=== PATIENT | female | born 1935 | race Caucasian/White ===

== ENCOUNTER 2019-08-21 13:29 | Emergency (ER) | payer MEDICARE, OTHER, SELFPAY ==
[2019-08-21] VITALS (18 sets, daily range): BP systolic 145–212; BP diastolic 59–99; PULSE 63–86; RESP 17–20; TEMP 36.8; O2SAT 93–99; BMI 30.9
--- NOTE | 2019-08-21 13:34 | ED_ITS ---
Entered by Porsche Maxwell, acting as scribe for Jomar Gipson DO HPI - General Adult General: Chief complaint: General Medical Stated complaint: Blood pressure is high Time Seen by Provider: 08/21/19 13:32 Source: patient Mode of arrival: ambulatory Limitations: no limitations History of Present Illness: HPI narrative: 84 yo Female presents to ED with complaint of elevated blood pressure. Pt states that she has been having high blood pressure for the past 3 weeks. Pt states that she sees Dr. Penn in [place]. Pt states she is going to see Dr. Penn on Friday but she couldn't wait that long. Pt states that she has been taking her blood pressure frequently over the past few days because her blood pressure has been bad. Pt states that her kidneys are not good and she has been having problems with it for a long time. MD complaint: Elevated blood pressure Onset (ago): week(s) (3) Relieving factors: none Exacerbating factors: none Associated symptoms: Reports no associated symptoms; Deny chest pain, dyspnea, headache(s), nausea, rash, palpitations or vomiting Review of Systems General: Reports: 10 or more systems reviewed and unremarkable except in HPI and below Const: Denies: fever, chills or body aches Eyes: Denies: change in vision, blurry vision or blind spots ENMT: Denies: throat pain, painful swallowing, hoarseness or mouth pain Card: Denies: chest pain, palpitations, irregular heart rhythm, edema or swelling of feet/ankles Resp: Denies: shortness of breath, productive cough or non-productive cough GI: Denies: abdominal pain, nausea or vomiting : Denies: flank pain, difficulty urinating, painful urination, urinary frequency or urinary urgency Musc: Denies: neck pain, back pain, extremity pain, extremity swelling, joint pain or joint swelling Skin/Breast: Denies: rash, itching, redness, sores, new lesion or changing lesion Neuro: Denies: headache, numbness in extremities or weakness in extremities Endo: Denies: excessive urination, excessive thirst or tired all the time Cem/Lymph: Denies: easy bruising or easy bleeding PFSH ED PFSH: Statuses (acute, chronic, etc) shown below reflect problem list status as previously entered and may not be historically accurate Medical History COPD (chronic obstructive pulmonary disease) (Acute) Surgical History History of carpal tunnel surgery (Acute) History of hysterectomy (Acute) Social History Smoking and tobacco status: former smoker Physical Exam Const: COMMON NORMALS: no apparent distress, average body habitus, oriented x3, no limitations, healthy appearing, alert and well nourished HENMT: COMMON NORMALS: normocephalic, head/scalp atraumatic, hearing grossly normal bilaterally, external ears normal, EAC's normal, TM's normal bilaterally, external nose normal, nasal mucous membranes and turbinates normal, moist oral mucous membranes, oropharynx normal, dentition normal and gingiva normal HEAD & SCALP: normocephalic and atraumatic NOSE: external nose normal and nasal mucous membranes and turbinates normal EXTERNAL EAR: Yes external ears normal EXTERNAL AUDITORY CANAL: EAC's normal TYMPANIC MEMBRANE: TM's normal bilaterally Eye: COMMON NORMALS: PERRL, EOMs intact bilaterally, conjunctivae normal, no scleral icterus, no papilledema, normal visual avendano by confrontation and fundi normal bilaterally CONJUNCTIVA: Yes conjunctivae normal PUPIL: Yes PERRL DIRECT OPHTHALMOSCOPY: Yes no papilledema and Yes fundi normal bilaterally Neck/C-Spine: COMMON NORMALS: full ROM, no lymphadenopathy, supple, no meningeal signs, no JVD, thyroid normal and no carotid bruits THYROID: thyroid normal Chest: COMMONS NORMALS: inspection of chest normal and palpation of chest normal Resp: COMMON NORMALS: normal respiratory effort, no retractions, no use of accessory muscles, clear to auscultation bilaterally and percussion normal AUSCULTATION: clear to auscultation bilaterally PERCUSSION: percussion normal Cardio: COMMON NORMALS: no JVD, regular rate, regular rhythm, S1 normal heart sound, S2 normal heart sound, no gallops, no clicks, no murmurs, no rub and peripheral pulses 2+ throughout RATE: regular rate RHYTHM: regular rhythm HEART SOUNDS: S1 normal and S2 normal PERIPHERAL PULSES: pulses 2+ throughout GI: COMMON NORMALS: normal to inspection, nondistended, normoactive bowel sounds, soft to palpation, non-tender, no hepatosplenomegaly, no masses and no bruits PALPATION: Yes soft and Yes no hepatosplenomegaly : COMMON NORMALS: Yes no CVA tenderness and Yes external appearance normal BLADDER/KIDNEY EXAM: Yes no CVA tenderness Back/Pelvis: COMMON NORMALS: no CVA tenderness, thoracic and lumbar spine normal to inspection, no thoracic nor lumbar tenderness, thoraco-lumbar ROM normal and straight leg raise negative bilaterally Extremity: COMMON NORMALS: normal to inspection, full ROM, normal capillary refill, no joint enlargement, no clubbing, cyanosis or edema, no calf tenderness and no pedal edema Neuro: COMMON NORMALS: oriented x3 SENSORIUM/ORIENTATION: Yes alert MENINGEAL SIGNS: Yes no meningeal signs Skin: COMMON NORMALS: no rashes or lesions noted, no wounds, skin turgor normal, no jaundice, no petechiae and no mottling GENERAL SKIN EXAM: no rashes or lesions noted and turgor normal Course Vital Signs: Vital signs: Vital Signs Temperature 98.2 F 08/21/19 13:46 Pulse Rate 79 08/21/19 14:30 Respiratory Rate 18 08/21/19 14:30 Blood Pressure 157/99 08/21/19 15:05 Pulse Oximetry 98 08/21/19 15:05 [facility] - General Adult Lab Data: Labs: Lab Results 08/21/19 08/21/19 08/21/19 Range/Units 14:06 14:24 14:24 WBC 8.4 (4.0-10.0) 10^3/ uL RBC 3.71 L (4.1-5.3) 10^6/u L Hgb 11.9 (11.5-15.3) g/dL Hct 36.3 L (37.0-47.0) % MCV 97.8 (81-99) fL MCH 32.1 (28.0-34.0) pg MCHC 32.8 (30.0-36.0) g/dL RDW 12.5 (12.1-15.1) % Plt Count 261 (130-400) 10^3/c mm MPV 9.8 (7.4-10.4) fL Neut % (Auto) 61.0 % Lymph % (Auto) 29.0 % [place] % (Auto) 9.0 % Eos % (Auto) 0.6 % Baso % (Auto) 0.2 % Neut # (Auto) 5.1 (1.8-7.7) 10^3/u L Lymph # (Auto) 2.4 (0.8-4.8) 10^3/u L [place] # (Auto) 0.8 (0.2-0.9) 10^3/u L Eos # (Auto) 0.1 (0.0-0.8) 10^3/u L Baso # (Auto) 0.0 (0.0-0.1) 10^3/u L Nucleated RBC % (a uto) 0 % Nucleated RBCs # 0.0 /100WBC Sodium 139 (136-145) mmol/L Potassium 4.2 (3.5-5.1) mmol/L Chloride 105 (98-107) mmol/L Carbon Dioxide 23 (22-29) mmol/L Anion Gap 15.2 (5-19) BUN 19 (8-23) mg/dL Creatinine 1.2 H (0.5-0.9) mg/dL Glucose 138 H (74-106) mg/dL Calcium 9.3 (8.8-10.2) mg/Dl Total Bilirubin 0.2 (0.15-1.2) mg/dL AST 12 (0-32) U/L ALT 11 (0-33) U/L Alkaline Phosphata se 59 (35-105) IU/L Total Protein 6.9 (6.6-8.7) g/dL Albumin 4.7 (3.5-5.2) g/dL Globulin 2.2 (1.3-4.6) g/dL TSH 0.41 (0.27-4.20) uIU/ mL Urine Color Straw (Yellow) Urine Appearance Clear (CLEAR) Urine pH 5 (5-7) Ur Specific Gravit y 1.005 (1.005-1.030) Urine Protein Neg (Negative) Urine Glucose (UA) Norm (Normal) Urine Ketones Negative (Negative) Urine Occult Blood Neg (Negative) Urine Nitrate Negative (Negative) Urine Bilirubin Neg (NEGATIVE) Urine Urobilinogen Norm (Negative) mg/dL Ur Leukocyte Joann ase Negative (Negative) Imaging Data^: CXR: Radiologist's impression: [facility] [address] [place] [address] XRay Report Signed Patient: Emiliano Mcintyre #: [id number] : 7Acct#:[id number] Age/Sex: 84 / FADM Date: 08/21/19 Loc: ERRoom/Bed: Attending Dr: Ordering Provider/Ordering MD: Jomar Gipson DO Date of Service: 08/21/19 Procedure(s): XR chest 1V portable [id number] Accession Number(s): [id number] Report Number: [id number] PROCEDURE INFORMATION: Exam: XR Chest, 1 View Exam date and time: 08/21/2019 2:04 PM Age: 84 years old Clinical indication: Other: Hypertension; Prior surgery; Surgery date: 6+ months; Additional info: HTN TECHNIQUE: Imaging protocol: XR of the chest Views: 1 view. COMPARISON: CR Chest 2 views* [id number] 09/10/2018 11:01 AM FINDINGS: Lungs: No CHF. No consolidation. Suboptimal evaluation of the right lung base. Pleural space: No pleural effusion. No pneumothorax. Heart/Mediastinum: No cardiomegaly. Bones/joints: No acute findings. XR/XR chest 1V portable [id number] IMPRESSION: No acute findings. Dictated By:Antione Jimenez MD Signed By:Antione Jimenez MDSigned Date/Time:08/21/19 1503 DD/ 1501 Discharge Plan Discharge Patient Disposition: Home, Self-Care Clinical Impression: Hypertensive urgency Hypertension Qualifiers: Hypertension type: essential hypertension Qualified Code(s): I10 - Essential (primary) hypertension Condition: Stable Prescriptions: New hydralazine 10 mg tablet 10 mg PO Q6H PRN (Reason: hypertension) Qty: 10 RF: 0 Discharge Orders: Discharge Order (Routine); Ordered 08/21/19 Ordered By: Jomar Gipson Referrals: Roosevelt Penn MD [Family Provider] - Discharge Diet: Usual diet and Low Salt Discharge Activity: Resume usual activity Patient Instructions: Hypertension (ED) Coding Level of Care Code ED Finished Goods Planner for Chg Fwd Exam Problem Focused The documentation recorded by the scribe, [place],Porsche, accurately reflects the service I personally performed and the decisions made by me, Jomar Gipson, Aug 21, 2019 13:29
--- NOTE | 2019-08-21 14:02 | XRR_ITS ---
PROCEDURE INFORMATION: Exam: XR Chest, 1 View Exam date and time: 08/21/2019 2:04 PM Age: 84 years old Clinical indication: Other: Hypertension; Prior surgery; Surgery date: 6+ months; Additional info: HTN TECHNIQUE: Imaging protocol: XR of the chest Views: 1 view. COMPARISON: CR Chest 2 views* [id number] 09/10/2018 11:01 AM FINDINGS: Lungs: No CHF. No consolidation. Suboptimal evaluation of the right lung base. Pleural space: No pleural effusion. No pneumothorax. Heart/Mediastinum: No cardiomegaly. Bones/joints: No acute findings. XR/XR chest 1V portable [id number] IMPRESSION: No acute findings.
--- NOTE | 2019-08-21 14:04 | ECG_ITS ---
Measurements Intervals [place] Rate: 69 P: 64 OK: 176 QRS: -49 QRSD: 155 T: 60 QT: 398 QTc: 428 SINUS RHYTHM RIGHT BUNDLE BRANCH BLOCK [120+ ms QRS DURATION, UPRIGHT V1, 40+ ms S IN I I/aVL/V4/V5/V6] LEFT ANTERIOR FASCICULAR BLOCK [QRS AXIS <= -45, QR IN I, RS IN II] POSSIBLE LEFT VENTRICULAR HYPERTROPHY [VOLTAGE CRITERIA PLUS LAE OR QRS WIDENING] No previous ECG available for comparison Electronically Signed On 08-22-2019 9:33:36 [employer]OMOTIVE MECHANIC by Enoch Tejada M.D. [email or web address]
--- NOTE | 2019-08-21 14:05 | PC.NURSE ---
Pt ambulated to with tech to give urine sample.
[2019-08-21] MEDS: hyDRALAzine 20 mg/mL INJ 1 mL 5 MG IVP (14:17)
--- NOTE | 2019-08-21 14:17 | PC.NURSE ---
Xray at bedside
[2019-08-21 14:19] LABS: Add Urine Microscopic? NO
[2019-08-21 14:27] LABS: Bilirubin Urine Neg (NEGATIVE); Blood Urine Neg (Negative); Glucose Urine UA Norm (Normal); Ketones Urine Negative (Negative); Leukocyte Esterase Urine Negative (Negative); Nitrate Urine Negative (Negative); Protein Urine Neg (Negative); Specific Gravity, Urine 1.005 (1.005-1.030); Urine Appearance Clear (CLEAR); Urine Color Straw (Yellow); Urobilinogen Urine Norm (Negative); pH Urine 5 (5-7)
[2019-08-21 14:32] LABS: Basophils % 0.2 %; Eosinophils # 0.1 10^3/uL (0.0-0.8); Eosinophils % 0.6 %; Hematocrit 36.3 % (37.0-47.0); Hemoglobin 11.9 g/dL (11.5-15.3); Lymphocytes # 2.4 10^3/uL (0.8-4.8); Mean Corpuscular HGB Conc 32.8 g/dL (30.0-36.0); Mean Corpuscular Hemoglobin 32.1 pg (28.0-34.0); Mean Corpuscular Volume 97.8 fL (81-99); Mean Platelet Volume 9.8 fL (7.4-10.4); Monocytes # 0.8 10^3/uL (0.2-0.9); Neutrophils # 5.1 10^3/uL (1.8-7.7); Nucleated Red Blood Cells % 0 %; Platelet Count 261 10^3/cmm (130-400); Red Blood Count 3.71 10^6/uL (4.1-5.3); Red Cell Distribution Width 12.5 % (12.1-15.1); White Blood Count 8.4 10^3/uL (4.0-10.0)
[2019-08-21 14:59] LABS: Alanine Aminotransferase 11 U/L (0-33); Albumin Level 4.7 g/dL (3.5-5.2); Alkaline Phosphatase 59 IU/L (35-105); Anion Gap 15.2 (5-19); Aspartate Amino Transferase 12 U/L (0-32); Blood Urea Nitrogen 19 mg/dL (8-23); Calcium 9.3 mg/Dl (8.8-10.2); Carbon Dioxide 23 mmol/L (22-29); Chloride 105 mmol/L (98-107); Globulin 2.2 g/dL (1.3-4.6); Glucose 138 mg/dL (74-106); Potassium 4.2 mmol/L (3.5-5.1); Sodium 139 mmol/L (136-145); Thyroid Stimulating Hormone 0.41 uIU/mL (0.27-4.20); Total Bilirubin 0.2 mg/dL (0.15-1.2); Total Protein 6.9 g/dL (6.6-8.7)
== END 2019-08-21 15:23 | disposition home or self-care (01) ==
PROVIDERS: Emergency Provider Family Medicine; Family Provider Internal Medicine
DX: I16.0 Hypertensive urgency (principal); I10 Essential (primary) hypertension; J44.9 Chronic obstructive pulmonary disease, unspecified; Z87.891 Personal history of nicotine dependence
CPT/HCPCS: 36415; 71045; 80053; 81003; 84443; 85025; 93005; 96374; 99283; A9270; J0360

== ENCOUNTER 2019-10-08 11:04 | Outpatient (CLI) | payer MEDICARE, OTHER, SELFPAY ==
[2019-10-11 16:29] LABS: Immunoglobulin E 11 kU/L (<OR=114)
== END 2019-10-08 11:05 | disposition home or self-care (01) ==
LOC: LAB 11:09
PROVIDERS: Family Provider Internal Medicine; PCP Internal Medicine; Visit Provider Internal Medicine Critical Care Medicine
DX: J45.909 Unspecified asthma, uncomplicated (principal)
CPT/HCPCS: 82785

== ENCOUNTER 2020-03-23 19:56 | Emergency (ER) | payer MEDICARE, OTHER, SELFPAY ==
[2020-03-23 20:03] VITALS: BP 184/68; PULSE 69; RESP 17; TEMP 36.8; O2SAT 98; BMI 32.5
--- NOTE | 2020-03-23 20:14 | XRR_ITS ---
PROCEDURE INFORMATION: Exam: XR Right Ankle Exam date and time: 03/23/2020 8:36 PM Age: 84 years old Clinical indication: Injury or trauma; Fall; Initial encounter; Blunt trauma; Ankle; Right; Additional info: Pain/injury TECHNIQUE: Imaging protocol: XR Right ankle. Views: 3 or more views. COMPARISON: No relevant prior studies available. FINDINGS: Bones/joints: Normal. Soft tissues: Normal. XR/XR ankle RT min 3V* [id number] IMPRESSION: No acute findings.
--- NOTE | 2020-03-23 20:14 | XRR_ITS ---
PROCEDURE INFORMATION: Exam: XR Right Foot Complete Exam date and time: 03/23/2020 8:36 PM Age: 84 years old Clinical indication: Injury or trauma; Fall; Initial encounter; Blunt trauma; Foot; Right; Additional info: Pain/injury TECHNIQUE: Imaging protocol: XR Right foot. Views: 3 or more views. COMPARISON: No relevant prior studies available. FINDINGS: Bones/joints: Negative for acute bony abnormality. A small bone spurs present on the inferior calcaneus Soft tissues: Normal. XR/XR foot RT min 3V* [id number] IMPRESSION: No acute findings. Small bone spur inferior calcaneus
--- NOTE | 2020-03-23 20:16 | ED_ITS ---
HPI - Fall General: Chief Complaint: Fall Stated Complaint: fell Time Seen by Provider: 03/23/20 20:11 Source: patient Mode of arrival: ambulatory Limitations: no limitations History of Present Illness: HPI Narrative: Edwardo is a very nice 84-year-old female who comes in complaining of right ankle and foot pain. Patient fell asleep and when awakening her foot had fallen asleep. She got up and tried to walk and hurt her foot and ankle in the process. She denies any numbness now but she has pain every time she tries to walk primarily in her ankle. She denies any other injuries or pain. Patient now cannot bear weight secondary to that pain. Review of Systems General: Reports: 10 or more systems reviewed and unremarkable except in HPI and below PFSH ED PFSH: Medical History Essential (primary) hypertension GERD (gastroesophageal reflux disease) Hyperlipidemia Kidney failure SARAHI (obstructive sleep apnea) Rheumatoid arthritis Surgical History History of carpal tunnel surgery History of hysterectomy History of lung surgery Hx of cataract surgery Family History Mother Diabetes Father CAD (coronary artery disease) Family/Other CAD (coronary artery disease) Brother CAD (coronary artery disease) Sister Pacemaker Social History Smoking and tobacco status: former smoker Quit status (tobacco): has quit using tobacco Year quit tobacco: 1960 - 0.5 PPD x 2 Years Second hand smoke exposure: Yes Alcohol intake: never Lives independently: Yes Household members: none Marital status: Unknown Current occupational status: retired History of recent travel: No Current gender identity: Female Physical Exam Const: COMMON NORMALS: no acute distress, patient oriented x3, no limitations, healthy appearing and well nourished GENERAL APPEARANCE: cooperative, well kempt and well developed HENMT: COMMON NORMALS: normocephalic, atraumatic, external ears normal, EAC's normal and Normal external nose present HEAD & SCALP: normal to inspection, normocephalic and atraumatic FACE & SINUS: normal facial exam and face symmetric NOSE: Normal external nose present and Normal nares present EXTERNAL EAR: Yes external ears normal EXTERNAL AUDITORY CANAL: EAC's normal MOUTH: Normal oral and palatal mucosa present, lip normal and tongue normal Eye: COMMON NORMALS: Equal, round and reactive pupils present and conjunctivae normal GENERAL EYE: appearance normal, both eyes and all related structures ALIGNMENT: Yes alignment normal PERIORBITAL: periorbital findings normal EYELID: eyelids normal CONJUNCTIVA: Yes conjunctivae normal SCLERA: sc lerae normal PUPIL: Yes Equal, round and reactive pupils present Neck/C-Spine: COMMON NORMALS: full ROM, no lymphadenopathy, supple, no meningeal signs and no JVD GENERAL: Yes normal visual inspection and Yes trachea midline Chest: COMMONS NORMALS: normal inspection of the chest and normal palpation of entire chest wall Resp: COMMON NORMALS: normal respiratory effort, No retractions, No use of accessory muscles and clear to auscultation bilaterally EFFORT & INSPECTION: Yes able to speak in complete sentences and Yes symmetric chest movement AUSCULTATION: clear to auscultation bilaterally, no crackles, no rales, no rhonchi and no wheezes Cardio: COMMON NORMALS: no JVD, regular rate, regular rhythm, S1 normal heart sound present and S2 normal heart sound present RATE: regular rate RHYTHM: regular rhythm HEART SOUNDS: S1 normal heart sound present, S2 normal heart s ound present, no click, no gallops, no murmurs, no rubs and abnormal split S2 GI: COMMON NORMALS: Soft to palpation and No hepatosplenomegaly present PALPATION: Yes Soft to palpation, No Tenderness to palpation present (GI), No Guarding due to palpation present (GI), No Rigid due to palpation, Yes No hepatosplenomegaly present, No Hernia present, No Palpable mass present and No Pulsatile mass present : COMMON NORMALS: Yes no CVA tenderness BLADDER/KIDNEY EXAM: Yes no CVA tenderness EXTERNAL FEMALE EXAM: No Hernia present Back/Pelvis: COMMON NORMALS: no CVA tenderness, thoracic and lumbar spine normal to inspection, no thoracic nor lumbar tenderness and thoraco-lumbar ROM normal Extremity: COMMON NORMALS: capillary refill normal, no clubbing, cyanosis or edema and no calf tenderness NARRATIVE EXTREMITY EXAM: Patient with mild swelling and pain on palpation of the ankle and foot. She is neurovascularly intact. Neuro: COMMON NORMALS: patient oriented x3, CN's II-XII intact bilaterally, moves all extremities, no focal motor deficits and no sensory deficits noted MENINGEAL SIGNS: Yes no meningeal signs SPEECH: speech normal Psych: COMMON NORMALS: mental status grossly normal, Normal thought process present, cooperative, normal affect, speech normal and activity/motor behavior normal APPEARANCE: Yes well kempt SPEECH: Yes normal speech THOUGHT PROCESS: Normal thought process present Skin: COMMON NORMALS: no rashes or lesions noted, turgor normal, no jaundice, no petechiae and no mottling GENERAL SKIN EXAM: no rashes or lesions noted and turgor normal Course Vital Signs: Vital signs: Vital Signs Temperature 98.2 F 03/23/20 20:03 Pulse Rate 69 03/23/20 20:03 Respiratory Rate 17 03/23/20 20:03 Blood Pressure 184/68 03/23/20 20:03 Pulse Oximetry 98 03/23/20 20:03 MDM - Fall MDM Narrative: Medical decision making narrative: Tiffany is a very nice 84-year-old female comes in complaining of right ankle and foot pain. There is no sign of fracture on her x-rays. I will go and discharge the patient home as she has a walker at home. Will place a splint on her and have her follow-up with her doctor. Discharge Plan Discharge Patient Disposition: Home Clinical Impression: Ankle sprain Qualifiers: Encounter type: initial encounter Involved ligament of ankle: unspecified ligament Laterality: right Qualified Code(s): S93.401A - Sprain of unspecified ligament of right ankle, initial encounter Condition: Stable Prescriptions: [place] 5-325 mg tablet 1 tab PO Q6H PRN (Reason: pain) 5 Days Qty: 20 RF: 0 No Action alendronate 70 mg tablet 70 mg PO .weekly RF: 0 amlodipine 5 mg tablet 5 mg PO DAILY RF: 0 calcium carbonate-vitamin D3 [Calcium 600 with Vitamin D3] 600 mg(1,500mg) - 500 unit capsule 1 cap PO DAILY RF: 0 Folvite-D 94.375 mcg- 1 mg tablet 1 tab PO DAILY RF: 0 glucosamine-chondroitin 900 mg tablet 900 mg PO BID RF: 0 hydrocodone-acetaminophen 5-325 mg tablet 1 tab PO Q4H PRNRF: 0 levalbuterol HCl 1.25 mg/0.5 mL solution for nebulization 2.5 mg INHALATION Q6H PRNRF: 0 lisinopril 20 mg tablet 20 mg PO BID RF: 0 omeprazole 20 mg capsule,delayed release(DR/EC) 20 mg PO DAILY RF: 0 pravastatin 40 mg tablet 40 mg PO .QOD RF: 0 prednisone 5 mg tablet 5 mg PO DAILY RF: 0 sulfasalazine 500 mg tablet 1 gm PO BID RF: 0 tramadol 50 mg tablet 50 mg PO BID PRNRF: 0 albuterol sulfate 90 mcg/actuation HFA aerosol inhaler 2 puff INHALATION Q6H PRN (Reason: Asthma) 90 Days Qty: 18 RF: 3 fluticasone propionate [Flonase Allergy Relief] 50 mcg/actuation spray,suspension 1 spray INTRANASAL BID 3 Days Qty: 16 RF: 3 fluticasone propion-salmeterol [Advair Diskus] 250-50 mcg/dose blister with device 1 inh INHALATION BID Qty: 60 RF: 3 montelukast 10 mg tablet See Rx Instructions .ROUTE .COMPLEX Qty: 90 RF: 3 hydralazine 10 mg tablet 10 mg PO Q6H PRN (Reason: hypertension) Qty: 10 RF: 0 Discharge Orders: Discharge Order (Routine); Ordered 03/23/20 Ordered By: Alexandra Mcarthur Referrals: Santi Clemente MD [Physician] - 1-3 days Roosevelt Penn MD [Primary Care Provider] - 1-3 days Discharge Diet: Usual diet Discharge Activity: Limit activity as instructed Patient Instructions: Ankle Sprain (ED) Activity Restrictions/Additional Instructions: Please return to the ER immediately for any of the signs or symptoms listed on your discharge instruction sheets, worsening/changing of your symptoms, you are not getting better as quickly as expected, or for ANY other cause or concerns. Bear weight only as tolerated and use your walker or crutches as needed until seen by your doctor or Dr. Clemente Coding Level of Care Code ED Registration Representative for Chg Fwd Exam Comprehensive
[2020-03-23] MEDS: HYDROcodone-acetaminophen 5-325 mg Tablet 1 TAB PO (20:57)
[2020-03-23 21:42] VITALS: BP 165/73; PULSE 84; RESP 17; O2SAT 96
--- NOTE | 2020-03-24 10:42 | DCPLANNER ---
retail banking manager had message to schedule a follow up appointment for patient with ortho. retail banking manager called the ortho clinic, spoke with Kay, gave clinic patients information. retail banking manager was told that patients information would be printed and reviewed. Clinic will call patient with appointment information.
--- NOTE | 2020-04-04 15:24 | DCPLANNER ---
Patient had a follow up appointment scheduled for 03.28.20 with ortho - patient did attend the appointment.
== END 2020-03-23 21:45 | disposition home or self-care (01) ==
PROVIDERS: Emergency Provider Emergency Medicine; PCP Internal Medicine
DX: S93.401A Sprain of unspecified ligament of right ankle, initial encounter (principal); W01.0XXA Fall on same level from slipping, tripping and stumbling without subsequent striking against object, initial encounter; I10 Essential (primary) hypertension; E78.5 Hyperlipidemia, unspecified; Z87.891 Personal history of nicotine dependence
CPT/HCPCS: 12345; 29515; 73610; 73630; 99281; 99283

== ENCOUNTER 2020-03-28 11:46 | Outpatient (CLI) | payer MEDICARE, OTHER, SELFPAY | END 2020-03-28 11:47 | disposition home or self-care (01) | LOC: SPT 11:46 | PROVIDERS: PCP Internal Medicine; Visit Provider Podiatrist Foot & Ankle Surgery | DX: Z46.89 Encounter for fitting and adjustment of other specified devices (principal); S82.51XD Displaced fracture of medial malleolus of right tibia, subsequent encounter for closed fracture with routine healing; S93.401D Sprain of unspecified ligament of right ankle, subsequent encounter; X58.XXXD Exposure to other specified factors, subsequent encounter | CPT/HCPCS: 97760; L4361 ==

== ENCOUNTER 2022-04-05 12:32 | Outpatient (CLI) | payer MEDICARE, OTHER, SELFPAY ==
[2022-04-05 12:44] LABS: Basophils % 0.1 %; Eosinophils % 0.3 %; Hematocrit 22.9 % (37.0-47.0); Hemoglobin 7.7 g/dL (11.5-15.3); Lymphocytes # 0.8 10^3/uL (0.8-4.8); Lymphocytes % 6.7 %; Mean Corpuscular HGB Conc 33.6 g/dL (30.0-36.0); Mean Corpuscular Hemoglobin 33.3 pg (28.0-34.0); Mean Corpuscular Volume 99.1 fl (81-99); Mean Platelet Volume 10.4 fL (7.4-10.4); Monocytes # 0.6 10^3/uL (0.2-0.9); Monocytes % 5.4 %; Neutrophils # 9.72 10^3/uL (1.8-7.7); Neutrophils % 86.6 %; Nucleated Red Blood Cells % 0 %; Platelet Count 289 10^3/cmm (130-400); Red Blood Count 2.31 10^6/uL (4.1-5.3); Red Cell Distribution Width 13.2 % (12.1-15.1); White Blood Count 11.2 10^3/uL (4.0-10.0)
== END 2022-04-05 12:33 | disposition home or self-care (01) ==
PROVIDERS: PCP Internal Medicine; Visit Provider Nurse Practitioner Family
DX: D64.9 Anemia, unspecified (principal)
CPT/HCPCS: 85025

== ENCOUNTER → 2022-04-19 09:01 | Day surgery (SDC) | payer MEDICARE, OTHER, SELFPAY ==
[2022-04-19] VITALS (8 sets, daily range): BP systolic 118–132; BP diastolic 59–79; PULSE 71–78; RESP 18; TEMP 36.6–36.9; O2SAT 98–100
[2022-04-19 09:53] LABS: Hematocrit 23.4 % (37.0-47.0); Hemoglobin 7.4 g/dL (11.5-15.3)
[2022-04-19] MEDS: sodium chloride 0.9% (100 ml) 100 ML 10 ML ×2 (10:52→12:53)
--- NOTE | 2022-04-19 14:30 | PC.NURSE ---
Pt to lab for blood transfusion. Hg 7.4 drawn this AM. Two units PRBC's infused as ordered. Pt was medicated with Benadryl and Tylenol at retirement prior to coming to per BRENDA Mcguire. Pt tolerated units well. No reaction noted. Pt back to retirement via [facility].
== END ==
PROVIDERS: PCP Internal Medicine; Visit Provider Nurse Practitioner Family
DX: D64.9 Anemia, unspecified (principal)
CPT/HCPCS: 36415; 36430; 85014; 85018; 86850; 86900; 86920; P9016

== ENCOUNTER → 2022-06-03 12:42 | Outpatient (BNVA) | payer MEDICARE, OTHER, SELFPAY | PROVIDERS: PCP Internal Medicine; Visit Provider Internal Medicine Cardiovascular Disease | DX: I25.10 Atherosclerotic heart disease of native coronary artery without angina pectoris (principal); I13.0 Hypertensive heart and chronic kidney disease with heart failure and stage 1 through stage 4 chronic kidney disease, or unspecified chronic kidney disease; N18.9 Chronic kidney disease, unspecified; I50.9 Heart failure, unspecified; Z87.891 Personal history of nicotine dependence | CPT/HCPCS: 99204 ==

== ENCOUNTER 2024-04-14 09:00 | Oncology outpatient (recurring) (ONCR) | payer MEDICARE, OTHER, SELFPAY ==
[2024-04-07 08:50] VITALS: BP 156/63; PULSE 74; RESP 16; TEMP 36.3; O2SAT 94
[2024-04-07] MEDS: sodium chloride 0.9% 250 ML 200 ML IV (09:50)
[2024-04-07] MEDS: ferumoxytol (NON-ESRD) 510 MG in sodium chloride 0.9% (100 ml) 100 ML 351 MG IV (09:51)
[2024-04-07 10:33] VITALS: BP 161/66; PULSE 56; RESP 16; TEMP 36.3; O2SAT 95
[2024-04-14 09:00] VITALS: BP 137/63; PULSE 77; RESP 16; TEMP 36.6; O2SAT 97
[2024-04-14] MEDS: ferumoxytol (NON-ESRD) 510 MG in sodium chloride 0.9% (100 ml) 100 ML 351 MG IV (09:22)
[2024-04-14 09:50] VITALS: BP 138/49; PULSE 68; RESP 16; TEMP 36.6; O2SAT 97
== END 2024-05-03 23:59 | disposition home or self-care (01) ==
PROVIDERS: PCP Internal Medicine; Visit Provider Registered Nurse
DX: Z79.899 Other long term (current) drug therapy (principal); N18.9 Chronic kidney disease, unspecified; Z53.9 Procedure and treatment not carried out, unspecified reason
CPT/HCPCS: 96365; J7050; Q0138

== ENCOUNTER 2024-05-28 08:43 | Oncology outpatient (recurring) (ONCR) | payer MEDICARE, OTHER, SELFPAY ==
[2024-05-28 09:30] LABS: Basophils % 0.2 %; Eosinophils # 0.1 10^3/uL (0.0-0.8); Hematocrit 27.5 % (36-47); Lymphocytes # 1.8 10^3/uL (0.8-4.8); Lymphocytes % 15.5 %; Mean Corpuscular Hemoglobin 35.1 pg (27-33); Mean Corpuscular Volume 109.6 fl (85-98); Monocytes # 0.6 10^3/uL (0.2-0.9); Monocytes % 5.1 %; Neutrophils # 9.09 10^3/uL (1.8-7.7); Neutrophils % 77.5 %; Nucleated Red Blood Cells % 0 %; Platelet Count 198 10^3/cmm (157-399); Red Blood Count 2.51 10^6/uL (3.85-5.65); Red Cell Distribution Width 12.6 % (12.1-15.1); Reticulocyte % 1.6 % (0.5-2.0); White Blood Count 11.73 10^3/uL (3.29-11.43)
[2024-05-28 09:59] LABS: Alanine Aminotransferase 16 U/L (0-33); Albumin Level 3.4 g/dL (3.5-5.2); Alkaline Phosphatase 82 U/L (35-105); Anion Gap 15.9 (5-19); Aspartate Amino Transferase 12 U/L (0-32); Blood Urea Nitrogen 21 mg/dL (8-23); Calcium 8.2 mg/dL (8.5-10.5); Carbon Dioxide 24 mmol/L (22-29); Chloride 101 mmol/L (98-107); Creatinine Clr Calc Pharmacy 22.2788; Ferritin 970 ng/mL (15-150); Glucose 121 mg/dL (65-115); Lactate Dehydrogenase 156 U/L (135-214); Osmolality Calculated 288 mOsm/kg (285-295); Potassium 3.9 mmol/L (3.5-5.1); Sodium 137 mmol/L (136-145); Total Bilirubin 0.2 mg/dL (0.15-1.2); Total Protein 6.4 g/dL (6.6-8.7)
[2024-05-28 10:15] LABS: Vitamin B12 479 pg/mL (232-1245)
[2024-05-28 11:32] LABS: Folate Level > 20.0 ng/mL (4.8-37.3)
[2024-06-03 12:44] LABS: Soluble Transferrin Receptor 1.08 mg/L (0.76-1.76)
== END 2024-06-03 23:59 | disposition home or self-care (01) ==
PROVIDERS: PCP Internal Medicine; Visit Provider Internal Medicine Hematology & Oncology
DX: N18.9 Chronic kidney disease, unspecified (principal); D64.9 Anemia, unspecified; Z79.899 Other long term (current) drug therapy
CPT/HCPCS: 36415; 80053; 82607; 82668; 82728; 82746; 83615; 84238; 85025; 85045; 99204

== ENCOUNTER 2024-06-04 08:29 | Oncology outpatient (recurring) (ONCR) | payer MEDICARE, OTHER, SELFPAY ==
--- OUTSIDE RECORDS SUMMARY | 2024-06-04 08:31 | XMS_ITS ---
Author Name Unknown Organization [facility] Address [address] [place], [place] [id number] Care Team Providers Care World Language Teacher Name Role Phone Carolyn GILBERT, Matti Primary Care Provider Solomon Hernández MD, Serjio Unavailable [phone] Allergies No Known Allergies REASON FOR VISIT Patient states she is here today for low back pain Medications Medication SIG (Take, Route, Frequency, Duration) Notes Start Date End Date Status Vitamin D3 10 mcg 1 tab(s) orally once a day for 30 day(s) Active ticagrelor 90 mg 1 tab(s) orally 2 times a day for 30 day(s) Active rosuvastatin 40 mg 1 tab(s) orally once a day for 30 day(s) Active rOPINIRole 0.5 mg 1 tab(s) orally 3 times a day for 30 day(s) 01/20/2024 Active PreserVision AREDS 2 Antioxidant Multiple Vitamins and Minerals 1 tab(s) chewed 2 times a day Active Metoprolol Succinate ER 25 mg 1 tab(s) orally once a day for 30 day(s) Active levothyroxine 25 mcg (0.025 mg) 1 tab(s) orally once a day for 30 day(s) 09/11/2022 Active predniSONE 5 mg 1 tab(s) orally once a day for 30 day(s) 03/16/2024 Active ondansetron 4 mg 1 tab(s) orally every 8 hours Active omeprazole 20 mg 1 tab orally once a day for 14 day(s) Active furosemide 80 mg 1 tab(s) orally once a day for 30 day(s) Active diclofenac topical 1% 4 grams applied topically Q6H prn pain for 30 days Do not fill prior to 06/15/24. ICD-10: G89.29 Active Eliquis 5 mg as directed orally 2 times a day for 30 day(s) Active chlorpheniramine/hydroc odone/PSE 1 tsp orally Q12H, PRN cough Active amiodarone 200 mg 1 tab(s) orally once a day for 30 day(s) Active acetaminophen-hydrocodo ne 325 mg-7.5 mg 1 tab orally Q4H prn pain (max 4/day; hold within 4H of planned sleep) for 28 days Do not fill prior to 06/21/24. ICD-10: G89.29 05/18/2024 Active acetaminophen-hydrocodo ne 325 mg-7.5 mg 1 tab orally Q4H prn pain (max 4/day; hold within 4H of planned sleep) for 28 days Do not fill prior to 05/24/24. ICD-10: G89.29 05/18/2024 Active Social History alcohol Question Answer Notes Did you have a drink containing alcohol in the p ast year? No Points 0 Interpretation Negative Vital Signs Temperature 97.6 degrees Fahrenheit 05/18/20 24 Blood pressure systolic 127 mm Hg 05/18/20 24 Blood pressure diastolic 48 mm Hg 024 Height 65 in 05/18/2024 Weight 187.2 lbs 05/18/2024 Oximetry 96 % 05/18/2024 BMI 31.15 kg/m2 05/18/2024 Encounters Encounter Location Date Provider Diagnosis [facility] [id number] [place], [place] [id number] 05/18/2024 Serjio Brotherslouisa Vertebrogenic low ba ck pain M54.51 ; Other chronic pain G89.29 and Obstructive sleep apnea (adult) (pediatric) G47.33 Assessments Encounter Date Diagnosis (ICD Code) Assessment Notes Treat ment Notes Treatment Clinical Notes 05/18/2024 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 05/18/2024 Other chronic pain (ICD-10 - G89.29) Patient reports that taking her pain medication allows her to decorate her home for the holidays and clean out her flower beds. Plan to continue oral opioid medication management. 05/18/2024 Obstructive sleep apnea (adult) (pediatric) (ICD-10 - G47.33) Patient reports compliance with use of her CPAP device. 05/18/2024 Other The service was provided by WILDA Vamra, as part of the ongoing care plan established by Serjio Hernández MD, who was present in the office for direct supervision during the encounter. Plan Of Treatment Medication Medication Name Sig Start Date Stop Date Notes diclofenac topical 1% 4 grams applied topically Q6H prn pain for 30 days Do not fill prior to 06/15/24. ICD-10: G89.29 acetaminophen-hydrocodon e 325 mg-7.5 mg 1 tab orally Q4H prn pain (max 4/day; hold within 4H of planned sleep) for 28 days 05/18/2024 Do not fill prior to 06/21/24. ICD-10: G89.29 acetaminophen-hydrocodon e 325 mg-7.5 mg 1 tab orally Q4H prn pain (max 4/day; hold within 4H of planned sleep) for 28 days 05/18/2024 Do not fill prior to 05/24/24. ICD-10: G89.29 Treatment Notes Assessment Notes Vertebrogenic low back pain Chronic axia l lumbosacral spine pain. Other chronic pain Patient reports that taking her pain medication allows her to decorate her home for the holidays and clean out her flower beds. Plan to continue oral opioid medication management. Obstructive sleep apnea (adult) (pediatr ic) Patient reports compliance with use of her CPAP device. Other The service was prov ided by WILDA Varma, as part of the ongoing care plan established by Serjio Hernández MD, who was present in the office for direct supervision during the encounter. Next Appt Details Follow Up: 2 month Rx visit. , Reason: Provider Name:Serjio Park son, 07/20/2024 10:40:00 AM, [address] [facility] [address], [place], [place], [id number], Progress Notes * Dixie RASMUSSEN EDOB:04/1936 (88 yo F)Acc No.[id number]:05/18/2024 Patient:?Dixie Rasmussen Provider:?Serjio Hernández :1935???Age:88 Y???Sex:Female D ate:05/18/2024 Address:[address] [facility], [id number] Pcp:Matti Leon MD Subjective: * Chief Complaints: * ???Patient states she is her e today for low back pain * HPI: ???Lumbar Spine:?88 year old female presents with c/o pain?for?chronic duration?in the bilateral low back. This pain is described as intermittent aching. This pain extends into the hips and buttocks. The back pain is aggravated by bending over, arising from a seated position, and riding in a car. This pain is somewhat alleviated with rest and by sitting in a reclined position with her feet elevated.?c/o tingling/numbness?in the bottoms of the feet.?c/o weakness?in the BLE.?Denies : injury:.?previous surgery:?lumbar spine 03/2022.?Previous Therapy:?Previous therapy:?topical agent therapy with some benefit; home exercises / stretching therapy with some benefit;?injection therapy?by Dr. Tripp with history of no benefit (2022); chiropractic?therapy with history of no benefit (2021); remote injection therapy via this facility for cervical, lumbar, sacral, tendon and myofascial pains with history of good - great benefit (see prior documentation).?Medication history:?baclofen 10 mg; gabapentin 100 mg @hs; Vicodin 500 mg; naproxen 500 mg; tramadol 50 mg.?Medications:?Brilinta (ticagrelor)?and Eliquis (apixaban) are?managed by Dr. Davidson; will address / send request for anticoagulation cessation recommendations as the need arises.?diclofenac (Voltaren)?topical gel, 1%, 4 grams, applied topically, Q6H prn pain, 30 days, 500 Gram, Refills 1 (last prescribed 01/20/24). Patient reports good benefit with 1 refill remaining at the pharmacy (confirmed).?Midway (hydrocodone / acetaminophen)?325 mg-7.5 mg, 1 tab, orally, Q4H prn pain (max 4/day; hold within 4H of planned sleep), 28 days, 112, Refills 0.Notes: Prescriptions given (2) on 03/16/24. Patient reports good benefit, as evidenced by improved ability to decorate for Andres,?prepare meals?and pull weeds out of flower beds, with quantity?35 and?0 prescription(s) remaining.Last fill date: 04/26/24.?Non Compliance/Failure to Follow Treatment Agreement:?Failure to bring prescribed medications to appointments:?on 07/25/15, 05/13/13, 04/15/13.?No-Show to Appointments:?on 11/17/07.?Abnormal chromatography / mass spectrometry results:?11/29/09.? * ROS:?14 point review of systems negative. * Medical History:? * Surgical History:?Hysterecto my Colonoscopy Cholecystectomy Right lung biopsy (benign), 02/16/06Angiogram x 2 Left carpal tunnel release, performed at [facility] in [place], [place], 12/29/18Bilataral cataract extraction with lens implants, performed at [facility] in [place], [place], 07/2019Right carpal tunnel release, performed at [facility] in [place], [place] by Dr. Weinstein, 08/25/20Low back surgery, performed at [facility] in [place], [place], lacement of stent, cardiac, performed at [facility] in [place], [place], 03/2022 * Hospitalization/Major Diagno stic Procedure:?Bronchitis, 2005Diverticulitis, 06/2016Heart attack, treated at [facility] in [place], [place], 03/2022Low potassium (fall), treated at [facility] in [place], [place], 08/2022 * Family History:?Father: dece ased 89 yrs, lung cancer.?Mother: 72 yrs, bowel obstruction.? * Social History:?Tobacco use?: nonsmoker.?Marijuana: no. ???Meth: no. ???Other illicit drug use: no. ???Alcohol?Did you have a drink containing alcohol in the past year??No ?Points?0 ?Interpretation?Negative ???: . ???Children: 4. ???Education: highest grade completed = 9th. ???Occupation: no, retired. ???Exercise: 1-2 days per week. ???History of welding/metal work: no. ???Travel: [place] (2003). * Medications:?Takingacetamino phen-hydrocodone 325 mg-7.5 mg tablet 1 tab orally Q4H prn pain (max 4/day; hold within 4H of planned sleep), Notes: Do not fill prior to 04/22/24. ICD-10: G89.29amiodarone 200 mg tablet 1 tab(s) orally once a daychlorpheniramine/hydrocodone/PSE liquid 1 tsp orally Q12H, PRN coughdiclofenac topical 1% gel 4 grams applied topically Q6H prn painEliquis(apixaban) 5 mg tablet as directed orally 2 times a dayfurosemide 80 mg tablet 1 tab(s) orally once a daylevothyroxine 25 mcg (0.025 mg) tablet 1 tab(s) orally once a dayMetoprolol Succinate ER(metoprolol) 25 mg tablet, extended release 1 tab(s) orally once a dayomeprazole 20 mg enteric coated tablet 1 tab orally once a dayondansetron 4 mg tablet 1 tab(s) orally every 8 hourspredniSONE 5 mg tablet 1 tab(s) orally once a dayPreserVision AREDS 2(multivitamin with minerals) Antioxidant Multiple Vitamins and Minerals tablet, chewable 1 tab(s) chewed 2 times a dayrOPINIRole 0.5 mg tablet 1 tab(s) orally 3 times a dayrosuvastatin 40 mg tablet 1 tab(s) orally once a dayticagrelor 90 mg tablet 1 tab(s) orally 2 times a dayVitamin D3(cholecalciferol) 10 mcg tablet 1 tab(s) orally once a dayMedication List reviewed and reconciled with the patientTaking acetaminophen-hydrocodone 325 mg-7.5 mg tablet 1 tab orally Q4H prn pain (max 4/day; hold within 4H of planned sleep), Notes: Do not fill prior to 04/22/24. ICD-10: G89.29Taking amiodarone 200 mg tablet 1 tab(s) orally once a dayTaking chlorpheniramine/hydrocodone/PSE liquid 1 tsp orally Q12H, PRN coughTaking diclofenac topical 1% gel 4 grams applied topically Q6H prn painTaking Eliquis(apixaban) 5 mg tablet as directed orally 2 times a dayTaking furosemide 80 mg tablet 1 tab(s) orally once a dayTaking levothyroxine 25 mcg (0.025 mg) tablet 1 tab(s) orally once a dayTaking Metoprolol Succinate ER(metoprolol) 25 mg tablet, extended release 1 tab(s) orally once a dayTaking omeprazole 20 mg enteric coated tablet 1 tab orally once a dayTaking ondansetron 4 mg tablet 1 tab(s) orally every 8 hoursTaking predniSONE 5 mg tablet 1 tab(s) orally once a dayTaking PreserVision AREDS 2(multivitamin with minerals) Antioxidant Multiple Vitamins and Minerals tablet, chewable 1 tab(s) chewed 2 times a dayTaking rOPINIRole 0.5 mg tablet 1 tab(s) orally 3 times a dayTaking rosuvastatin 40 mg tablet 1 tab(s) orally once a dayTaking ticagrelor 90 mg tablet 1 tab(s) orally 2 times a dayTaking Vitamin D3(cholecalciferol) 10 mcg tablet 1 tab(s) orally once a dayMedication List reviewed and reconciled with the patient * Allergies:?N.K.D.A.no[Allerg ies Verified] Objective: * Vitals:?Pain Scale:5 (0-10), Pain average:6, Pain Range:5-7, Ht: 65 in, Wt:187.2 lbs, BMI:31.15 index, BP:127/48 mm Hg, HR:68, RR:16, Temp:97.6, SaO2:96. * Physical Examination:?General:?General appearence:?well groomed, well nourished.?Build:?mildly obese.?Head:?normocephalic.?Eyes:?Conjunctiva:?without injection.?ENT:?Hearing:?grossly intact.?Chest:?Shape and expansion:?normal expansion, equal bilaterally, respirations even and unlabored.?Neurological:?Psychiatric:?alert and conversant.?Musculoskeletal:?Gait:?broad-based, use of walker for ambulation assistance.?Outcome Assessment:?Findings:?Negative, care plan not required ???Dermatology:?Skin inspection:?pink, warm, dry, and intact.? Therapeutic Interventions: * Therapeutic Interventions: ???1.?PDMP ? [facility] : 05/13/2024 9:52 AM - database accessed and reviewed prior to today's visit in anticipation of possible opioid prescribing, see scanned report ? Assessment: * Assessment: 1.?Vertebrogenic low back pa in - M54.51 (Primary)?2.?Other chronic pain - G89.29?3.?Obstructive sleep apnea (adult) (pediatric) - G47.33? Plan: * Treatment: 2.?Other chronic pain? Notes: Patient reports that taking her pain medication allows her to decorate her home for the holidays and clean out her flower beds. Plan to continue oral opioid medication management.?? 3.?Obstructive sleep apnea ( adult) (pediatric)? Notes: Patient reports compliance with use of her CPAP device.?? 4.?Others? Continue acetaminophen-hydrocodone tablet, 325 mg-7.5 mg, 1 tab, orally, Q4H prn pain (max 4/day; hold within 4H of planned sleep), 28 days, 112, Refills 0, Notes: Do not fill prior to 05/24/24. ICD-10: G89.29;?Continue acetaminophen-hydrocodone tablet, 325 mg-7.5 mg, 1 tab, orally, Q4H prn pain (max 4/day; hold within 4H of planned sleep), 28 days, 112, Refills 0, Notes: Do not fill prior to 06/21/24. ICD-10: G89.29;?Continue diclofenac topical gel, 1%, 4 grams, applied topically, Q6H prn pain, 30 days, 500 Gram, Refills 0, Notes: Do not fill prior to 06/15/24. ICD-10: G89.29.?? Notes: The service was provided by WILDA Varma, as part of the ongoing care plan established by Serjio Hernández MD, who was present in the office for direct supervision during the encounter.?? * Procedure Codes:?G8427 DOC M EDS VERIFIED W/PT OR RE * Preventive Medicine:? ??Counseling:?Pain Management:?Follow-up Plan documented:?Yes ?Pain Screening:?5 ?BP Management?LIFESTYLE RECOMMENDATION:?Lifestyle education regarding hypertension - patient education sheet given on 05/18/2024 ??Screening / Special Tests:?Fall Risk?Screening:?No falls in the past year as of: 05/18/2024 * Follow Up:?2 month Rx visit. * Images: * Sign off status: Completed true * Provider:?Serjio Hernández Date:?05/18/20 Generated for Lior jaimes/Yoli/eTparish on:?06/04/2024 08:31 AM CDT History and Physical Notes * HPI (History of Present Illness) Category Sub-Category Detail Notes Lumbar Spine injury: tingling/numbness in the bottoms of th e feet pain in the bilateral low back. This pain is described as intermittent aching. This pain extends into the hips and buttocks. The back pain is aggravated by bending over, arising from a seated position, and riding in a car. This pain is somewhat alleviated with rest and by sitting in a reclined position with her feet elevated previous surgery: lumbar spine 03/2022 weakness in the BLE Medications Midway (hydrocodone / acetaminoph en) 325 mg-7.5 mg, 1 tab, orally, Q4H prn pain (max 4/day; hold within 4H of planned sleep), 28 days, 112, Refills 0. Notes: Prescriptions given (2) on 03/16/24. Patient reports good benefit, as evidenced by improved ability to decorate for Andres, prepare meals and pull weeds out of flower beds, with quantity 35 and 0 prescription(s) remaining. Last fill date: 04/26/24 diclofenac (Voltaren) topical gel, 1%, 4 grams, applied topically, Q6H prn pain, 30 days, 500 Gram, Refills 1 (last prescribed 01/20/24). Patient reports good benefit with 1 refill remaining at the pharmacy (confirmed) Brilinta (ticagrelor) and Eliquis (apixa ban) are managed by Dr. Davidson; will address / send request for anticoagulation cessation recommendations as the need arises Previous Therapy Previous therapy: topical agent therapy with some benefit; home exercises / stretching therapy with some benefit; injection therapy by Dr. Tripp with history of no benefit (2022); chiropractic therapy with history of no benefit (2021); remote injection therapy via this facility for cervical, lumbar, sacral, tendon and myofascial pains with history of good - great benefit (see prior documentation) Medication history: baclofen 10 mg; jordan pentin 100 mg @hs; Vicodin 500 mg; naproxen 500 mg; tramadol 50 mg Non Compliance/Failure to Fo llow Treatment Agreement Failure to bring prescribed medications to appointments: on 07/25/15, 05/13/13, 04/15/13 No-Show to Appointments: on 11/17/07 Abnormal chromatography / mass spectrome try results: 11/29/09 Physical Examination Category Sub-Category Detail Notes ENT Hearing: grossly intact Chest Shape and expansion: normal expa nsion, equal bilaterally, respirations even and unlabored Neurological Psychiatric: alert and conver colleen Musculoskeletal Upper extremity: Gait: broad-based, use of walker for ambulation assistance Outcome Assessment: Findings:: Negative, care pl an not required Dermatology Skin inspection: pink, warm, dry , and intact General General appearence: well groomed , well nourished Build: mildly obese Head: normocephalic Eyes Conjunctiva: without injectio n
--- OUTSIDE RECORDS SUMMARY | 2024-06-04 08:31 | XMS_ITS ---
Author Name Unknown Organization [facility] Address [address] [place], [place] [id number] Care Team Providers Care Human Development Professor Name Role Phone Carolyn GILBERT, Matti Primary Care Provider Solomon Hernández MD, Serjio Unavailable [phone] Chery Parker Unavailable [phone] Allergies No Known Allergies REASON FOR VISIT Patient states she is here today to get my meds refilled {low back pain} Medications Medication SIG (Take, Route, Frequency, Duration) Notes Start Date End Date Status furosemide 80 mg 1 tab(s) orally once a day for 30 day(s) Active levothyroxine 25 mcg (0.025 mg) 1 tab(s) orally once a day for 30 day(s) 09/11/2022 Active amiodarone 200 mg 1 tab(s) orally once a day for 30 day(s) Active chlorpheniramine/hydroc odone/PSE 1 tsp orally Q12H, PRN cough Active Eliquis 5 mg as directed orally 2 times a day for 30 day(s) Active acetaminophen-hydrocodo ne 325 mg-7.5 mg 1 tab orally Q4H prn pain (max 4/day; hold within 4H of planned sleep) for 28 days Do not fill prior to 03/25/24. ICD-10: G89.29 03/16/2024 Active acetaminophen-hydrocodo ne 325 mg-7.5 mg 1 tab orally Q4H prn pain (max 4/day; hold within 4H of planned sleep) for 28 days Do not fill prior to 04/22/24. ICD-10: G89.29 03/16/2024 Active diclofenac topical 1% 4 grams applied topically Q6H prn pain Active Vitamin D3 10 mcg 1 tab(s) orally once a day for 30 day(s) Active predniSONE 5 mg 1 tab(s) orally once a day for 30 day(s) 03/16/2024 Active PreserVision AREDS 2 Antioxidant Multiple Vitamins and Minerals 1 tab(s) chewed 2 times a day Active rOPINIRole 0.5 mg 1 tab(s) orally 3 times a day for 30 day(s) 01/20/2024 Active rosuvastatin 40 mg 1 tab(s) orally once a day for 30 day(s) Active ticagrelor 90 mg 1 tab(s) orally 2 times a day for 30 day(s) Active Metoprolol Succinate ER 25 mg 1 tab(s) orally once a day for 30 day(s) Active omeprazole 20 mg 1 tab orally once a day for 14 day(s) Active ondansetron 4 mg 1 tab(s) orally every 8 hours Active Social History alcohol Question Answer Notes Did you have a drink containing alcohol in the p ast year? No Points 0 Interpretation Negative Vital Signs Temperature 97.2 degrees Fahrenheit 03/16/20 24 Blood pressure systolic 139 mm Hg 03/16/20 24 Blood pressure diastolic 45 mm Hg 024 Height 65 in 03/16/2024 Weight 186.2 lbs 03/16/2024 Oximetry 96 % 03/16/2024 BMI 30.98 kg/m2 03/16/2024 Encounters Encounter Location Date Provider Diagnosis [facility] [id number] [place], [place] [id number] 03/16/2024 Chery Terrell Vertebrogenic low ba ck pain M54.51 ; Other chronic pain G89.29 and Obstructive sleep apnea (adult) (pediatric) G47.33 Assessments Encounter Date Diagnosis (ICD Code) Assessment Notes Treat ment Notes Treatment Clinical Notes 03/16/2024 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 03/16/2024 Other chronic pain (ICD-10 - G89.29) Patient reports that most day she needs stronger pain medication. Plan to continue oral opioid medication management with dose titration. 03/16/2024 Obstructive sleep apnea (adult) (pediatric) (ICD-10 - G47.33) Patient reports compliance with use of her CPAP device. 03/16/2024 Other Plan Of Treatment Medication Medication Name Sig Start Date Stop Date Notes acetaminophen-hydrocodon e 325 mg-7.5 mg 1 tab orally Q4H prn pain (max 4/day; hold within 4H of planned sleep) for 28 days 03/16/2024 Do not fill prior to 03/25/24. ICD-10: G89.29 acetaminophen-hydrocodon e 325 mg-7.5 mg 1 tab orally Q4H prn pain (max 4/day; hold within 4H of planned sleep) for 28 days 03/16/2024 Do not fill prior to 04/22/24. ICD-10: G89.29 diclofenac topical 1% 4 grams applied topically Q6H prn pain Treatment Notes Assessment Notes Vertebrogenic low back pain Chronic axia l lumbosacral spine pain. Other chronic pain Patient reports that most day she needs stronger pain medication. Plan to continue oral opioid medication management with dose titration. Obstructive sleep apnea (adult) (pediatr ic) Patient reports compliance with use of her CPAP device. Next Appt Details Follow Up: 2 month Rx visit. , Reason: Provider Name:Serjio Park son, 07/20/2024 10:40:00 AM, [address] [place], [place], [phone], Progress Notes * Dixie RASMUSSEN EDOB:04/1936 (88 yo F)Acc No.[id number]:03/16/2024 Patient:?Dixie Rasmussen Provider:?WILDA Varma :1935???Age:88 Y???Sex:Female D ate:03/16/2024 Address:[address] [place], [place] [id number] Pcp:Matti Leon MD Subjective: * Chief Complaints: * ???Patient states she is her e today to get my meds refilled {low back pain} * HPI: ???Lumbar Spine:?88 year old female presents with c/o pain?for?chronic duration?in the bilateral low back. This pain is described as constant throbbing. This pain extends into the hips and thighs. The back pain is aggravated by bending over, climbing stairs, and sitting > 30 minutes. This pain is somewhat alleviated with use of muscle cream, with rest, and by lying on her side.?c/o tingling/numbness?in the bottoms of the feet.?c/o weakness?in the BLE.?Denies : injury:.?previous surgery:?lumbar spine 03/2022.?Previous Imaging/Studies:?Sleep study?on 06/08/06.?X-rays?of the L-spine on 12/05/09.?MRI?of the L-spine on 03/02/20 and 12/05/09; of the C-spine 09/25/07 and 04/22/13.?Interventional:?Interlaminar cervical epidural steroid injection:?C7-T1 on 11/05/07 with great benefit; C7-T1 on 05/12/13 with good benefit.?Interlaminar lumbar epidural steroid injection:?L6-S1 on 02/18/12 with great benefit for ~ 2 months; L5-6 on 01/17/16 with good benefit to include resolution of RLE pain.?Left SI joint local anesthetic / steroid injection:?on 04/27/12 with great benefit.?Radiofrequency nerve ablation:?right L3, L4 medial branch, right L5 dorsal ramus on 04/29/16 with great benefit (L6 labelled as L5 for this set of procedures).?Tendon steroid injection:?on 03/18/12 with great benefit; on 08/11/14 with great benefit; on 11/03/14 with good benefit; on 12/21/15 with good benefit and good improvement with ADLs, such as reaching to trim trees and pulling weeds from her yard; on 05/09/16 with good benefit and good improvement with ADLs, such as standing; on 05/15/17 with good benefit (maintained as of 08/28/17).?Trigger point injections:?on 04/15/13 with good benefit; on 05/04/15 with good benefit.?Previous Therapy:?Previous therapy:?topical agent therapy with some benefit; home exercises / stretching therapy with some benefit;?injection therapy?by Dr. Tripp with history of no benefit (2022); chiropractic?therapy with history of no benefit (2021).?Medication history:?baclofen 10 mg; gabapentin 100 mg @hs; Vicodin 500 mg; naproxen 500 mg; tramadol 50 mg.?Medications:?Brilinta (ticagrelor)?and Eliquis (apixaban) managed by Dr. Davidson; will address / send request for anticoagulation cessation recommendations as the need arises.?diclofenac (Voltaren)?topical gel, 1%, 4 grams, applied topically, Q6H prn pain, 30 days, 500 Gram, Refills 1 (last prescribed 01/20/24). No refill requested at today's visit.?Ford (hydrocodone / acetaminophen)?325 mg-5 mg, 1 tab, orally, Q4H prn pain (max 4/day; hold within 4H of planned sleep), 28 days, 112, Refills 0. Notes: Prescriptions given (2) on 01/20/24. Patient reports minimal benefit, as evidenced by improved ability to pull weeds, with quantity?51 and 0 prescription(s) remaining.Last fill date: 02/26/24.?Non Compliance/Failure to Follow Treatment Agreement:?Failure to bring prescribed medications to appointments:?on 07/25/15, 05/13/13, 04/15/13.?No-Show to Appointments:?on 11/17/07.?Abnormal chromatography / mass spectrometry results:?11/29/09.? * ROS:?14 point review of systems negative. * Medical History:? * Surgical History:?Hysterecto my Colonoscopy Cholecystectomy Right lung biopsy (benign), 02/16/06Angiogram x 2 Left carpal tunnel release, performed at [facility] in [place], [place], 12/29/18Bilataral cataract extraction with lens implants, performed at [facility] in [place], [place], 07/2019Right carpal tunnel release, performed at [facility] in [place], [place] by Dr. Weinstein, 08/25/20Low back surgery, performed at [facility] in [place], [place], lacement of stent, cardiac, performed at [facility] in [place], [place], 03/2022 * Hospitalization/Major Diagno stic Procedure:?Bronchitis, 2005Diverticulitis, 06/2016Heart attack, treated at [facility] in [place], [place], 03/2022Low potassium (fall), treated at [facility] in [place], [place], 08/2022 * Family History:?Father: dece ased [...] week. ???History of welding/metal work: no. ???Travel: [place] (2003). * Medications:?Takingacetamino phen-hydrocodone 325 mg-5 mg tablet 1 tab orally Q4H prn pain (max 4/day; hold within 4H of planned sleep)amiodarone 200 mg tablet 1 tab(s) orally once [...] mcg tablet 1 tab(s) orally once a dayTaking acetaminophen-hydrocodone 325 mg-5 mg tablet 1 tab orally Q4H prn pain (max 4/day; hold within 4H of planned sleep)Taking amiodarone 200 mg tablet 1 tab(s) orally [...] mcg tablet 1 tab(s) orally once a dayDiscontinuedsulfaSALAzine 500 mg tablet 3 tabs orally three times a dayMedication List reviewed and reconciled with the patientDiscontinued sulfaSALAzine 500 mg tablet 3 tabs orally three times a dayMedication List reviewed and reconciled with the patient * Allergies:?N.K.D.A.no[Allerg ies Verified] Objective: * Vitals:?Pain Scale:7 (0-10), Pain average:6, Pain Range:5-7, Ht: 65 in, Wt:186.2 lbs, BMI:30.98 index, BP:139/45 mm Hg, HR:70, RR:16, Temp:97.2, SaO2:96. * Physical Examination:?General:?General appearence:?well groomed, well nourished.?Build:?mildly obese.?Head:?normocephalic.?Eyes:?Conjunctiva:?without injection.?ENT:?Hearing:?grossly intact.?Chest:?Shape and expansion:?normal expansion, equal bilaterally, respirations even and unlabored.?Neurological:?Psychiatric:?alert and conversant.?Musculoskeletal:?Gait:?broad-based, use of walker for ambulation assistance.?Outcome Assessment:?Findings:?Negative, care plan not required ???Dermatology:?Skin inspection:?pink, warm, dry, and intact.? Therapeutic Interventions: * Therapeutic Interventions: ???1.?PDMP ? [facility] [place] : 03/11/2024 3:27 PM - database accessed and reviewed prior to today's visit in anticipation of possible opioid prescribing ? Assessment: * Assessment: 1.?Other chronic pain - G89. 29 (Primary)?2.?Vertebrogenic low back pain - M54.51?3.?Obstructive sleep apnea (adult) (pediatric) - G47.33? Plan: * Treatment: 2.?Vertebrogenic low back pa in? Notes: Chronic axial lumbosacral spine pain.?? 3.?Obstructive sleep apnea ( adult) (pediatric)? Notes: Patient reports compliance with use of her CPAP device.?? 4.?Others? Increase acetaminophen-hydrocodone tablet, 325 mg-7.5 mg, 1 tab, orally, Q4H prn pain (max 4/day; hold within 4H of planned sleep), 28 days, 112, Refills 0, Notes: Do not fill prior to 03/25/24. ICD-10: G89.29;?Increase acetaminophen-hydrocodone tablet, 325 mg-7.5 mg, 1 tab, orally, Q4H prn pain (max 4/day; hold within 4H of planned sleep), 28 days, 112, Refills 0, Notes: Do not fill prior to 04/22/24. ICD-10: G89.29;?Continue diclofenac topical gel, 1%, 4 grams, applied topically, Q6H prn pain.?? * Procedure Codes:?G8427 DOC M EDS VERIFIED W/PT OR RE * Preventive Medicine:? ??Counseling:?Pain Management:?Follow-up Plan documented:?Yes ?Pain Screening:?7 ??ASA Status Classification:?score:?P3.? ??Screening / Special Tests:?Fall Risk?Screening:?No falls in the past year as of: 03/16/2024 * Follow Up:?2 month Rx visit. * Images: * Sign off status: Completed true * Provider:?WILDA Varma Date:? 024 Generated for Lior jaimes/Yoli/Kristina on:?06/04/2024 08:31 AM CDT History and Physical Notes * HPI (History of Present Illness) Category Sub-Category Detail Notes Lumbar Spine injury: tingling/numbness in the bottoms of th e feet pain in the bilateral low back. This pain is described as constant throbbing. This pain extends into the hips and thighs. The back pain is aggravated by bending over, climbing stairs, and sitting > 30 minutes. This pain is somewhat alleviated with use of muscle cream, with rest, and by lying on her side previous surgery: lumbar spine 03/2022 weakness in the BLE Medications Ford (hydrocodone / acetaminoph en) 325 mg-5 mg, 1 tab, orally, Q4H prn pain (max 4/day; hold within 4H of planned sleep), 28 days, 112, Refills 0. Notes: Prescriptions given (2) on 01/20/24. Patient reports minimal benefit, as evidenced by improved ability to pull weeds, with quantity 51 and 0 prescription(s) remaining. Last fill date: 02/26/24 diclofenac (Voltaren) topical gel, 1%, 4 grams, applied topically, Q6H prn pain, 30 days, 500 Gram, Refills 1 (last prescribed 01/20/24). No refill requested at today's visit Brilinta (ticagrelor) and Eliquis (apixa ban) managed by Dr. Davidson; will address / send request for anticoagulation cessation recommendations as the need arises Interventional Left SI joint local anesthetic / steroid injection: on 04/27/12 with great benefit Interlaminar lumbar epidural steroid injection: L6-S1 on 02/18/12 with great benefit for ~ 2 months; L5-6 on 01/17/16 with good benefit to include resolution of RLE pain Trigger point injections: on 04/15/13 wi th good benefit; on 05/04/15 with good benefit Radiofrequency nerve ablation: right L3, L4 medial branch, right L5 dorsal ramus on 04/29/16 with great benefit (L6 labelled as L5 for this set of procedures) Interlaminar cervical epidur al steroid injection: C7-T1 on 11/05/07 with great benefit; C7 -T1 on 05/12/13 with good benefit Tendon steroid injection: on 03/18/12 wi th great benefit; on 08/11/14 with great benefit; on 11/03/14 with good benefit; on 12/21/15 with good benefit and good improvement with ADLs, such as reaching to trim trees and pulling weeds from her yard; on 05/09/16 with good benefit and good improvement with ADLs, such as standing; on 05/15/17 with good benefit (maintained as of 08/28/17) Previous Therapy Previous therapy: topical agent therapy with some benefit; home exercises / stretching therapy with some benefit; injection therapy by Dr. Tripp with history of no benefit (2022); chiropractic therapy with history of no benefit (2021) Medication history: baclofen 10 mg; jordan pentin 100 mg @hs; Vicodin 500 mg; naproxen 500 mg; tramadol 50 mg Previous Imaging/Studies MRI of the L-spine on 03/02/20 and 12/05/09; of the C- spine 09/25/07 and 04/22/13 Sleep study on 06/08/06 X-rays of the L-spine on Non Compliance/Failure to Fo llow Treatment Agreement [...]
--- OUTSIDE RECORDS SUMMARY | 2024-06-04 08:31 | XMS_ITS ---
Author Name Unknown Organization [facility] Address [address], [place] [id number] Care Team Providers Care Associate Professor Of Surgery Name Role Phone Carolyn GILBERT, Matti Primary Care Provider Solomon Hernández MD, Serjio Unavailable [phone] Xander [employer] STUDIES TEACHERChery Grant Unavailable [phone] Allergies No Known Allergies Results Component Value Reference Range Notes Urine tox screen / MS if ind icated Reviewed date:01/20/2024 10:47:29 AM Interpretation:Consistent Performing Lab: Notes/Report: Consistent REASON FOR VISIT Patient states she is here today to refill my pain pills {low back pain} Social History alcohol Question Answer Notes Did you have a drink containing alcohol in the p ast year? No Points 0 Interpretation Negative Vital Signs Temperature 97.3 degrees Fahrenheit 01/20/20 24 Blood pressure systolic 141 mm Hg 01/20/20 24 Blood pressure diastolic 84 mm Hg 024 Height 65 in 01/20/2024 Weight 181.8 lbs 01/20/2024 Oximetry 95 % 01/20/2024 BMI 30.25 kg/m2 01/20/2024 Encounters Encounter Location Date Provider Diagnosis [facility] [address], [place] [id number] 01/20/2024 Chery Terrell Vertebrogenic low ba ck pain M54.51 ; Other chronic pain G89.29 ; Obstructive sleep apnea (adult) (pediatric) G47.33 and FPC (current) use of opiate analgesic Z79.891 Assessments Encounter Date Diagnosis (ICD Code) Assessment Notes Treat ment Notes Treatment Clinical Notes 01/20/2024 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 01/20/2024 Other chronic pain (ICD-10 - G89.29) Patient reports that taking her pain medication allows her to work in her yard. Plan to continue oral opioid medication management. 01/20/2024 Obstructive sleep apnea (adult) (pediatric) (ICD-10 - G47.33) Patient reports compliance with use of her CPAP device. 01/20/2024 FPC (current) use of opiate analgesic (ICD-10 - Z79.891) 2022 opioid (OUD) risk tool score = 1. This places the patient in the low risk category. Plan urine toxicology screen today to monitor for presence of any unprescribed or illicit controlled substance(s), as well as prescribed hydrocodone. 01/20/2024 Other Plan Of Treatment Medication Information is temporarily u navailable. Treatment Notes Assessment Notes Vertebrogenic low back pain Chronic axia l lumbosacral spine pain. Other chronic pain Patient reports that taking her pain medication allows her to work in her yard. Plan to continue oral opioid medication management. Obstructive sleep apnea (adult) (pediatr ic) Patient reports compliance with use of her CPAP device. FPC (current) use of opiate analge sic 2022 opioid (OUD) risk tool score = 1. This places the patient in the low risk category. Plan urine toxicology screen today to monitor for presence of any unprescribed or illicit controlled substance(s), as well as prescribed hydrocodone. Next Appt Details Follow Up: 2 month Rx visit. , Reason: Provider Name:Serjio Park son, 07/20/2024 10:40:00 AM, [address], [place], [id number], Progress Notes * Dixie RASMUSSEN EDOB:04/1936 (88 yo F)Acc No.[id number]:01/20/2024 Patient:?Dixie Rasmussen Provider:?WILDA Varma :1935???Age:88 Y???Sex:Female D ate:01/20/2024 Address:[address] [place], [place] [id number] Pcp:Matti Leon MD Subjective: * Chief Complaints: * ???Patient states she is her e today to refill my pain pills {low back pain} * HPI: ???Lumbar Spine:?88 year old female presents with c/o pain?for?chronic duration?in the bilateral low back. This pain is described as constant and sharp. This pain extends into the hips, buttocks, and BLE. The back pain is aggravated by bending over, lifting large pans, and standing in the kitchen. This pain is somewhat alleviated with use of muscle cream, by sitting down, and by lying down.?c/o tingling/numbness?in the bottoms of the feet.?c/o weakness?in [...] with good benefit; on 05/04/15 with good benefit.?Medications:?Brilinta (ticagrelor)?and Eliquis (apixaban) managed by Dr. Davidson; will address / send request for anticoagulation cessation recommendations as the need arises.?diclofenac (Voltaren)?topical gel, 1%, 4 grams, applied topically, Q6H prn pain, 30 day(s), 500 Gram, Refills 2 (last prescribed 03/12/23). Patient reports good benefit.?Toomsuba (hydrocodone / acetaminophen)?325 mg-5 mg, 1 tab, orally, Q4H prn pain (max 4/day; hold within 4H of planned sleep), 28 days, 112, Refills 0. Notes: Prescriptions given (2) on 11/18/23. Patient reports?good benefit, as evidenced by improved ability to bake pies, mow the yard, water and work in flower beds, with quantity 31 and 0 prescription(s) remaining.Last fill date: 12/27/23.Last dose taken: 01/20/24.?Previous Therapy:?Previous therapy:?topical agent therapy with some benefit; home exercises / stretching therapy with some benefit;?injection therapy?by Dr. Tripp with history of no benefit (2022); chiropractic?therapy with history of no benefit (2021).?Medication history:?baclofen 10 mg; gabapentin 100 mg @hs; Vicodin 500 mg; naproxen 500 mg; tramadol 50 mg.?Non Compliance/Failure to Follow Treatment Agreement:?Failure to bring prescribed medications to appointments:?on 07/25/15, 05/13/13, 04/15/13.?No-Show to Appointments:?on 11/17/07.?Abnormal chromatography / mass spectrometry results:?11/29/09.? * ROS:?14 point review of systems negative. * Medical History:? * Surgical History:?Hysterecto my Colonoscopy Cholecystectomy Right lung biopsy (benign), 02/16/06Angiogram x 2 Left carpal tunnel release, performed at [facility] in [place], [place], 12/29/18Bilataral cataract extraction with lens implants, performed at [facility] in [place], [place], 07/2019Right carpal tunnel release, performed at [facility] in [place], [place] by Dr. Weinstein, 08/25/20Low back surgery, performed at [place], [place], lacement of stent, cardiac, performed at [place], [place], 03/2022 * Hospitalization/Major Diagno stic Procedure:?Bronchitis, 2005Diverticulitis, 06/2016Heart attack, treated at [facility] in [place], [place], 03/2022Low potassium (fall), treated at [facility] in [place], [place], 08/2022 * Family History:?Father: dece ased [...] ???Travel: [place] (2003). * Medications:?Takingacetamino phen-hydrocodone 325 mg-5 mg [...] mg tablet 1 tab(s) orally every 8 hoursPreserVision AREDS 2(multivitamin with minerals) Antioxidant Multiple Vitamins and Minerals tablet, chewable 1 tab(s) chewed 2 times a dayrOPINIRole 0.5 mg tablet 1 tab(s) orally 3 times a dayrosuvastatin 40 mg tablet 1 tab(s) orally once a daysulfaSALAzine 500 mg tablet 3 tabs orally three times a dayticagrelor 90 mg tablet 1 tab(s) orally 2 times a dayVitamin D3(cholecalciferol) 10 mcg tablet 1 tab(s) orally once a dayMedication List reviewed and reconciled with the patientTaking acetaminophen-hydrocodone 325 mg-5 mg tablet 1 tab [...] tablet 1 tab(s) orally every 8 hoursTaking PreserVision AREDS 2(multivitamin with minerals) Antioxidant Multiple Vitamins and Minerals tablet, chewable 1 tab(s) chewed 2 times a dayTaking rOPINIRole 0.5 mg tablet 1 tab(s) orally 3 times a dayTaking rosuvastatin 40 mg tablet 1 tab(s) orally once a dayTaking sulfaSALAzine 500 mg tablet 3 tabs orally three times a dayTaking ticagrelor 90 mg tablet 1 tab(s) orally 2 times a dayTaking Vitamin D3(cholecalciferol) 10 mcg tablet 1 tab(s) orally once a dayMedication List reviewed and reconciled with the patient * Allergies:?N.K.D.A.no[Allerg ies Verified] Objective: * Vitals:?Pain Scale:7 (0-10), Pain average:6-7, Pain Range:5-8, Ht: 65 in, Wt:181.8 lbs, BMI:30.25 index, BP:141/84 mm Hg, HR:81, RR:16, Temp:97.3, SaO2:95. * Physical Examination:?General:?General appearence:?well groomed, well nourished.?Build:?mildly obese.?Head:?normocephalic.?Eyes:?Conjunctiva:?without injection.?ENT:?Hearing:?grossly intact.?Chest:?Shape and expansion:?normal expansion, equal bilaterally, respirations even and unlabored.?Neurological:?Psychiatric:?alert and conversant.?Musculoskeletal:?Gait:?broad-based, use of walker for ambulation assistance.?Outcome Assessment:?Findings:?Negative, care plan not required ???Dermatology:?Skin inspection:?pink, warm, dry, and intact.? Therapeutic Interventions: * Therapeutic Interventions: ???1.?Drug Screening ? Urine Sample : collected (consistent) ???2.?PDMP ? [facility] : 01/15/2024 8:36 AM - database accessed and reviewed prior to today's visit in anticipation of possible opioid prescribing; however, no prescription records since 11/27/23 ?? Assessment: * Assessment: 1.?Other chronic pain - G89. 29 (Primary)?2.?Vertebrogenic low back pain - M54.51?3.?Obstructive sleep apnea (adult) (pediatric) - G47.33?4.?FPC (current) use of opiate analgesic - Z79.891? Plan: * Treatment: 2.?Vertebrogenic low back pa in? Notes: Chronic axial lumbosacral spine pain.?? 3.?Obstructive sleep apnea ( adult) (pediatric)? Notes: Patient reports compliance with use of her CPAP device.?? 4.?FPC (current) use o f opiate analgesic?LAB: Urine tox screen / MS if indicated Notes: 2022 opioid (OUD) risk tool score = 1. This places the patient in the low risk category. Plan urine toxicology screen today to monitor for presence of any unprescribed or illicit controlled substance(s), as well as prescribed hydrocodone.?? 5.?Others? Continue acetaminophen-hydrocodone tablet, 325 mg-5 mg, 1 tab, orally, Q4H prn pain (max 4/day; hold within 4H of planned sleep), 28 days, 112, Refills 0, Notes: Do not fill prior to 01/24/24. ICD-10: G89.29;?Continue acetaminophen-hydrocodone tablet, 325 mg-5 mg, 1 tab, orally, Q4H prn pain (max 4/day; hold within 4H of planned sleep), 28 days, 112, Refills 0, Notes: Do not fill prior to 02/21/24. ICD-10: G89.29;?Continue diclofenac topical gel, 1%, 4 grams, applied topically, Q6H prn pain, 30 days, 500 Gram, Refills 1.?? * Procedure Codes:?G8427 DOC M EDS VERIFIED W/PT OR [id number] Urine Dip Cup, Modifiers: QW * Preventive Medicine:? ??Counseling:?Pain Management:?Follow-up Plan documented:?Yes ?Pain Screening:?7 ??ASA Status Classification:?score:?P3.? ??Screening / Special Tests:?Fall Risk?Screening:?No falls in the past year as of: 01/20/2024 * Follow Up:?2 month Rx visit. * [...] back. This pain is described as constant and sharp. This pain extends into the hips, buttocks, and BLE. The back pain is aggravated by bending over, lifting large pans, and standing in the kitchen. This pain is somewhat alleviated with use of muscle cream, by sitting down, and by lying down previous surgery: lumbar spine 03/2022 weakness in the BLE Medications Toomsuba (hydrocodone / acetaminoph en) 325 mg-5 mg, 1 tab, orally, Q4H prn pain (max 4/day; hold within 4H of planned sleep), 28 days, 112, Refills 0. Notes: Prescriptions given (2) on 11/18/23. Patient reports good benefit, as evidenced by improved ability to bake pies, mow the yard, water and work in flower beds, with quantity 31 and 0 prescription(s) remaining. Last fill date: 12/27/23. Last dose taken: 01/20/24 diclofenac (Voltaren) topical gel, 1%, 4 grams, applied topically, Q6H prn pain, 30 day(s), 500 Gram, Refills 2 (last prescribed 03/12/23). Patient reports good benefit Brilinta (ticagrelor) and Eliquis (apixa ban) managed [...] 07/25/15, 05/13/13, 04/15/13 No-Show to Appointments: on 04/15/08 Abnormal chromatography / mass spectrome try results: [...]
--- OUTSIDE RECORDS SUMMARY | 2024-06-04 08:32 | XMS_ITS | Patient Health Record ---
Author Name Unknown Organization [facility] Address [address] [place] [address] Care Team Providers Care Salesperson Furs Name Role Phone Robert Bautista [phone] Reason For Referral No Information Medications Medication SIG (Take, Route, Frequency, Duration) Notes Start Date End Date Status Glucosamine 750 MG 1 tablet Orally twice daily Unknown Levalbuterol HCl 1.25 MG/0.5ML as directed Inhalation Unknown Albuterol Sulfate HFA 108 (90 Base) MCG/ACT 1 puff as needed Inhalation every 4 hrs Unknown Symbicort 160-4.5 MCG/ACT 2 puffs Inhala tion Twice a day for 30 Active Calcium + D 500-1000-40 MG-UNT-MCG as directed Orally Unknown HYDROcodone-Acetaminophen 5-325 MG 1 tablet as needed Orally every [address] Hernández Active Fluticasone-Salmeterol 500-50 MCG/DOSE 1 puff Inhalation Twice a day Active Folic Acid 1 MG 1 tablet Orally Once a day Active Doxycycline Hyclate 100 MG as directed Orally every 12 hrs for 10 day(s) 05/10/2020 Active amLODIPine Besylate 5 MG 1 tablet Orally Once a day Active Chlorthalidone 25 MG 1/2 tablet Orally Once a day for 30 day(s) Active Spiriva HandiHaler 18 MCG 1 capsule by inhaling the contents of the capsule using the HandiHaler device Inhalation Once a day Unknown Incruse Ellipta 62.5 MCG/INH 1 puff Inhalation Once a day for 30 Active Alendronate Sodium 70 MG 1 tablet 30 min utes before the first food, beverage or medicine of the day with plain water Orally Active Pravastatin Sodium 40 MG 1 tablet Orally Once a day Active predniSONE 5 MG 1 tablet Orally Once a day Active Lisinopril 20 MG 1 tablet Orally twice daily for 30 day(s) Active Omeprazole 20 MG 1 capsule 30 minutes before morning meal Orally Once a day Active Mucinex 600 MG 2 tabs Orally every 12 hrs for 14 days 05/10/2020 Active Gabapentin 100 MG 1 capsule Orally Once a day at bedtime for 30 days Active predniSONE 20 MG 1 tablet Orally twice daily for 5 days 09/08/2019 Active Mucinex 600 MG 2 tablets Orally every 12 hrs for 14 days Active Cefuroxime Axetil 500 MG 1 tablet Orally every 12 hrs for 10 days Active Doxycycline Hyclate 100 MG 1 capsule Orally Twice a day for 10 day(s) 09/08/2019 Active sulfaSALAzine 500 MG 2 tablets Orally twice daily for 30 day(s) Active traMADol HCl 50 MG 1 tablet in am and 2 tablets in pm Orally daily Dr. Hernández Active Medrol 4 MG as directed Orally daily for 7 days 05/10/2020 Active Social History Tobacco Use: Social History Observation Description Date Details (start date - stop date) Former Smoker NA - NA xTobacco Use/Smoking Question Answer Notes Are you a former smoker How long has it been since you last smoked? > 10 years Alcohol Screen (Audit-C) Question Answer Notes Did you have a drink containing alcohol in the p ast year? No Points 0 Interpretation Negative Problems Problem Type SNOMED Code ICD Code Onset Dates Problem Status W/U Status Risk Notes Problem [id number] Sciatica, righ t side (M54.31) Active confirmed Problem 83827632 Sciatica, left s [place] (M54.32) Active confirmed Problem 482128291 COPD exacerbatio n (J44.1) Active confirmed Problem COPD - Chronic obstructive pulmonary disease (21277757) COPD (chronic obstructive pulmonary disease) (J44.9) Active confirmed Problem Chronic renal failur e (56865063) CRF (585) 2010 Active confirmed [id number]- Problem Multiple joint pain (91485074) Joint pain, multiple sites (719.49) 2008 Active confirmed [id number]- Problem Acute bronchitis (40628211) Acute bronchitis (466.0) 2003 Problem resolved confirmed [id number]- Problem Sebaceous cyst (424101855) Sebaceous cyst (706.2) 2018 Problem resolved confirmed [id number]- Problem Wheezing (22710624) Wheezing (786.07) 2010 Problem resolved confirmed [id number]- Problem Cough (98343318) Cough (786.2) 2007 Problem resolved confirmed [id number]- Problem Neck pain (47128682) Neck pain (723.1) 2007 Problem resolved confirmed [id number]- Problem Fever blister (9170988) fever blister (239.2) 2009 Problem resolved confirmed [id number]- Problem Hypercholesterolemia (41826144) Hypercholesterolemia (272.0) 2003 Problem resolved confirmed [id number]- Problem Osteoporosis (92010801) Osteoporosis, other (733.09) 2003 Problem resolved confirmed [id number]- Problem Acute exacerbation o f chronic obstructive airways disease (941357783) Chronic bronchitis, obstructive, with (acute) exacerbation (491.21) 2003 Problem resolved confirmed [id number]- Problem Night sweats (74410749) Night sweats (780.8) 2003 Problem resolved confirmed [id number]- Problem 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) Other abnormal findings on blood examination (790.99) 2018 Problem resolved confirmed [id number]- Problem Acute exacerbation o f chronic obstructive airways disease (483221896) Acute exacerbation of chronic obstructive pulmonary disease (COPD) (491.21) 2006 Problem resolved confirmed [id number]- Problem Impaired fasting glycaemia (509939160) Elevated fasting glucose (790.21) 2009 Problem resolved confirmed [id number]- Problem 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) Dry skin syndrome (701.1) 2008 Problem resolved confirmed [id number]- Problem Purulent bronchitis (14086077) Purulent bronchitis (466.0) 2005 Problem resolved confirmed [id number]- Problem Rib pain (811979887) Rib pain (786.50) 2003 Problem resolved confirmed [id number]- Problem Acute exacerbation o f chronic obstructive airways disease (953116827) Decompensated chronic obstructive pulmonary disease (COPD) (491.21) 2005 Problem resolved confirmed [id number]- Problem Needs influenza immunization (471645317) Vaccination against other viral diseases, Influenza (V04.81) 2006 Problem resolved confirmed [id number]- Problem Candidiasis (97536702) Yeast infection (112.9) 2005 Problem resolved confirmed [id number]- Problem Acute upper respiratory infection (04454324) Acute upper respiratory infection (465.8) 2008 Problem resolved confirmed [id number]- Problem Knee pain (6590908374) Knee pain (719.46) 2018 Problem resolved confirmed [id number]- Problem URI (6576290447) URI (465.8) 2004 Problem resolved confirmed [id number]- Problem Pneumococcal pneumonia (014795439) Acute lobar pneumonia (481) 2005 Problem resolved confirmed [id number]- Problem Essential hypertension (27900084) Essential hypertension (401.1) 2003 Problem resolved confirmed [id number]-[id number]- Problem Impacted cerumen (10460331) External cerumen impaction (380.4) 2018 Problem resolved confirmed [id number]- Problem Hypertension (26083403) HTN (401.1) 2003 Problem resolved confirmed [id number]- Problem Pedal edema (843172040) Pedal edema (782.3) 2012 Problem resolved confirmed [id number]- Problem Thrush (73909262) Thrush (112.0) 2010 Problem resolved confirmed [id number]-[id number]- Problem Lump (737669427) Lump (782.2) 2018 Problem resolved confirmed [id number]- Plan Of Treatment No Information Insurance Providers Payer Name Payer Address Payer Phone Subscriber Number Group Number Insured Name Patient Relationship to Insured Coverage Start Date Coverage End Date [place] [address] [address] [place] [phone] [id number] Dixie Parks Self - patient is the insured 2 [facility] Insurance [address] [address] [place] [phone] [id number] Dixie Parks Self - patient is the insured Medications Administered Medication Instructions Date of Administration Dosage Notes Albuterol/ipratropium 2.5/0.5 09/08/2019 Rocephin/Ceftriaxone 1 Gram (per 250 mg) 09/08/2019 Rocephin/Ceftriaxone 1 Gram (per 250 mg) 05/10/2020 1 g Solu-medrol per 125mg 09/08/2019 Solu-medrol per 125mg 09/08/2019 125 mg Solu-medrol per 125mg 09/08/2019 125 mg Solu-medrol per 125mg 09/08/2019 Medical (General) History Medical History History ICD Code Hypertension Hypercholesterolemia COPD Rheumatoid arthritis Osteoporosis CRF Surgical History Surgery Date(Month/Year) Cholecystectomy Hysterectomy Biopsy of right lung;benign 02/2006
--- OUTSIDE RECORDS SUMMARY | 2024-06-04 08:32 | XMS_ITS | Patient Health Record ---
Author Name Unknown Organization [email or web address] Address [address] [place], [place] [id number] Care Team Providers Care Community Product Specialist Name Role Phone Carolyn GILBERT, Matti Primary Care Provider Solomon Hernández MD, Serjio Unavailable [phone] Chery Parker Unavailable [phone] Allergies No Known Allergies Results Component Value Reference Range Notes Urine tox screen / MS if ind icated Reviewed date:01/20/2024 10:47:29 AM Interpretation:Consistent Performing Lab: Notes/Report: Consistent Reason For Referral No Information Medications Medication SIG (Take, Route, Frequency, Duration) Notes Start Date End Date Status Metoprolol Succinate ER 25 mg 1 tab(s) orally once a day for 30 day(s) Active levothyroxine 25 mcg (0.025 mg) 1 tab(s) orally once a day for 30 day(s) 09/11/2022 Active furosemide 80 mg 1 tab(s) orally [...] prior to 05/24/24. ICD-10: G89.29 05/18/2024 Active chlorpheniramine/hydroc odone/PSE 1 tsp orally Q12H, PRN cough Active amiodarone 200 mg 1 tab(s) orally once a day for 30 day(s) Active Vitamin D3 10 mcg 1 tab(s) [...] tab(s) chewed 2 times a day Active predniSONE 5 mg 1 tab(s) orally once a day for 30 day(s) 03/16/2024 Active ondansetron 4 mg 1 tab(s) orally every 8 hours Active omeprazole 20 mg 1 tab orally once a day for 14 day(s) Active Social History alcohol Question Answer Notes Did you have a drink containing alcohol in the p ast year? No Points 0 Interpretation Negative Problems Problem Type SNOMED Code ICD Code Onset Dates Problem Status W/U Status Risk Notes Problem Lumbosacral spondylosis without myelopathy (85043403) Lumbosacral spondylosis without myelopathy (721.3) Active confirmed Problem Displacement of lumbar intervertebral disc without myelopathy (66407566) Lumbar (w/out myelopathy) intervertebral disc disorder (722.10) Active confirmed Problem Spasm (14499398) Muscle spasm (728.85) Active confirmed Problem Sleep dysfunction with sleep stage disturbance (399804426) Dysfunctions associated with sleep stages or arousal from sleep (780.56) Active confirmed Problem Low back pain (543759737) Low back pain (724.2) Active confirmed Problem Shoulder pain (62954820) Shoulder pain (719.41) Active confirmed Problem Long-term drug therapy (773261659) LONG-TERM USE MEDS NEC (V58.69) Active confirmed R/O substance abuse Problem Anxiety state (014879772) Anxiety State, other, specified: procedure related (300.09) Active confirmed Problem Displacement of cervical intervertebral disc without myelopathy (42238524) Cervical (w/out myelopathy) intervertebral disc disorder (722.0) Active confirmed Problem Cervical spondylosis without myelopathy (793636213) Cervical spondylosis without myelopathy (721.0) Active confirmed Problem Solitary sacroiliitis (696655705) Sacroiliitis (720.2) Active confirmed Problem Obstructive sleep apnea syndrome (57848846) Sleep apnea, obstructive (327.23) Active confirmed Problem Enthesopathy (07501057) Tendinitis, tendonitis (726.90) Active confirmed Problem Neck pain (28030632) Neck pain (723.1) Active confirmed Problem Solitary sacroiliitis (444116273) Sacroiliitis, not elsewhere classified (M46.1) Active confirmed Problem Low back pain (511224351) Low back pain (M54.5) Active confirmed Problem Displacement of lumbar intervertebral disc without myelopathy (00597354) Other intervertebral disc displacement, lumbar region (M51.26) Active confirmed Problem Lumbosacral spondylosis without myelopathy (80281903) Spondylosis without myelopathy or radiculopathy, lumbar region (M47.816) Active confirmed 6 lumbar-appear ing vertebrae have been noted via fluoroscopy (for [employer] and [employer] nomenclature purposes for blocks and RFA, the inferior most has been designated as L5) Problem High risk drug monitoring status (217891612) [facility] (current) use of opiate analgesic (Z79.891) Active confirmed Problem Enthesopathy (77623035) Enthesopathy, unspecified (M77.9) Active confirmed Problem Anxiety disorder (062388511) Other specified anxiety disorders (F41.8) Active confirmed Problem Obstructive sleep apnea syndrome (30312334) Obstructive sleep apnea (adult) (pediatric) (G47.33) Active confirmed Problem Chronic pain (41061816) Other chronic pain (G89.29) Active confirmed Problem Shoulder joint pain (380561049) Pain in unspecified shoulder (M25.519) Active confirmed Problem Cervical spondylosis without myelopathy (943814202) Other spondylosis with radiculopathy, cervical region (M47.22) Active confirmed Problem Displacement of cervical intervertebral disc without myelopathy (00408994) Other cervical disc displacement, unspecified cervical region (M50.20) Active confirmed Problem Radiculopathy due to lumbar intervertebral disc disorder (112374094070226 ) Intervertebral disc disorders with radiculopathy, lumbar region (M51.16) Active confirmed Problem Cervicalgia (85801158) Cervicalgia (M54.2) Active confirmed Problem Spasm (39594392) Other muscle spasm (M62.838) Active confirmed Problem Myalgia (86110790) Myalgia (M79.1) Active confirmed Problem Myalgia (39450617) Myalgia of auxiliary muscles, head and neck (M79.12) Active confirmed Problem Muscle pain (34907249) Myalgia, other site (M79.18) Active confirmed Problem Pain in lumbar spine (817613807) Vertebrogenic low back pain (M54.51) Active confirmed Vital Signs Temperature 97.6 degrees Fahrenheit 05/18/2024 Blood pressure diastolic 48 mm Hg 05/18/2024 Oximetry 96 % 05/18/2024 Height 65 in 05/18/2024 Blood pressure systolic 127 mm Hg 05/18/2024 Weight 187.2 lbs 05/18/2024 BMI 31.15 kg/m2 05/18/2024 Encounters Encounter Location Date Provider Diagnosis [facility] [address] [place], [place] [id number] 06/18/2023 Chery Terrell Vertebrogenic low ba ck pain M54.51 ; Other chronic pain G89.29 and Obstructive sleep apnea (adult) (pediatric) G47.33 [facility] [address] [place], [place] [id number] 09/16/2023 Chery Terrell Vertebrogenic low ba ck pain M54.51 ; Other chronic pain G89.29 and Obstructive sleep apnea (adult) (pediatric) G47.33 [facility] [address] [place], [place] [id number] 11/18/2023 Chery Terrell Vertebrogenic low ba ck pain M54.51 ; Other chronic pain G89.29 and Obstructive sleep apnea (adult) (pediatric) G47.33 [facility] [address] [place], [place] [id number] 01/20/2024 Chery Terrell Vertebrogenic low ba ck pain M54.51 ; Other chronic pain G89.29 ; Obstructive sleep apnea (adult) (pediatric) G47.33 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 [facility] [address] [place], [place] [id number] 03/16/2024 Chery Terrell Vertebrogenic low ba ck pain M54.51 ; Other chronic pain G89.29 and Obstructive sleep apnea (adult) (pediatric) G47.33 [facility] [address] [place], [place] [id number] 05/18/2024 Serjio Hernández Vertebrogenic low ba ck pain M54.51 ; Other chronic pain G89.29 and Obstructive sleep apnea (adult) (pediatric) G47.33 Assessments Encounter Date Diagnosis (ICD Code) Assessment Notes Treat ment Notes Treatment Clinical Notes 06/18/2023 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 09/16/2023 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 11/18/2023 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 01/20/2024 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 03/16/2024 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 05/18/2024 Other chronic pain (ICD-10 - G89.29) Patient reports that taking her pain medication allows her to decorate her home for the holidays and clean out her flower beds. Plan to continue oral opioid medication management. 05/18/2024 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 05/18/2024 Obstructive sleep apnea (adult) (pediatric) (ICD-10 - G47.33) Patient reports compliance with use of her CPAP device. 03/16/2024 Obstructive sleep apnea (adult) (pediatric) (ICD-10 - G47.33) Patient reports compliance with use of her CPAP device. 03/16/2024 Other chronic pain (ICD-10 - G89.29) Patient reports that most day she needs stronger pain medication. Plan to continue oral opioid medication management with dose titration. 01/20/2024 Obstructive sleep apnea (adult) (pediatric) (ICD-10 - G47.33) Patient reports compliance with use of her CPAP device. 01/20/2024 Other chronic pain (ICD-10 - G89.29) Patient reports that taking her pain medication allows her to work in her yard. Plan to continue oral opioid medication management. 11/18/2023 Obstructive sleep apnea (adult) (pediatric) (ICD-10 - G47.33) Patient reports compliance with use of her CPAP device. 11/18/2023 Other chronic pain (ICD-10 - G89.29) Patient reports that taking her pain medication allows her to work in her flower beds. Plan to continue oral opioid medication management. 09/16/2023 Obstructive sleep apnea (adult) (pediatric) (ICD-10 - G47.33) Patient reports partial compliance with use of her CPAP device. 09/16/2023 Other chronic pain (ICD-10 - G89.29) Patient reports that taking her pain medication allows her to clean her house. Plan to continue oral opioid medication management. 06/18/2023 Obstructive sleep apnea (adult) (pediatric) (ICD-10 - G47.33) Patient reports that she uses her CPAP device most nights. 06/18/2023 Other chronic pain (ICD-10 - G89.29) Patient reports that taking her pain medication allows her to rake leaves in her yard. Plan to continue oral opioid medication management. 01/20/2024 [facility] (current) use of opiate analgesic (ICD-10 - Z79.891) 2022 opioid (OUD) risk tool score = 1. This places the patient in the low risk category. Plan urine toxicology screen today to monitor for presence of any unprescribed or illicit controlled substance(s), as well as prescribed hydrocodone. 06/18/2023 Other 09/16/2023 Other 11/18/2023 Other 01/20/2024 Other 03/16/2024 Other 05/18/2024 Other The service was provided by WILDA Varma, as part of the ongoing care plan established by Serjio Hernández MD, who was present in the office for direct supervision during the encounter. Plan Of Treatment Next Appt Details Provider Name:Serjio Park son, 07/20/2024 10:40:00 AM, [address] [facility], [place], [place], [id number], Insurance Providers Payer Name Payer Address Payer Phone Subscriber Number Group Number Insured Name Patient Relationship to Insured Coverage Start Date Coverage End Date [employer] Medicare Part B Claims Department [address] [address] [place] [address] [id number] Dixie Witt Self - patient is the insured [employer] [address] [address] [place] [phone] [id number] Dixie Witt Self - patient is the insured Medical (General) History Medical History History ICD Code Chronic pain Low back pain Lumbar spondylosis and disc disease Sacroiliitis Neck pain Cervical spondylosis and disc disease Chronic bronchitis Hypertension Hypercholesterolemia Gastroesophageal reflux disease COPD CAD, stent placement [place] 03/2022 Congestive heart failure Sleep apnea and CPAP use Obesity, mild Surgical History Surgery Date(Month/Year) Hysterectomy Colonoscopy Cholecystectomy Right lung biopsy (benign), 02/16/06 Angiogram x 2 Left carpal tunnel release, performed at [facility] in [place], [place], 12/29/18 Bilataral cataract extractio n with lens implants, performed at [facility] in [place], [place], 07/2019 Right carpal tunnel release, performed at [facility] in [place], [place] by Dr. Weinstein, 08/25/20 Low back surgery, performed at [facility] in [place], [place], 03/2022 Placement of stent, cardiac, performed a t [facility] in [place], [place], 03/2022 Hospitalization History Reason Date(Month/Year) Low potassium (fall), treate d at [facility] in [place], [place], 08/2022 Heart attack, treated at [facility] in [place], [place], 03/2022 Diverticulitis, 06/2016 Bronchitis, 2005
[2024-06-04] MEDS: EPOETIN ALFA EPBX 40000 UNIT/ML SUBCUT (09:27)
[2024-06-04 09:30] VITALS: BP 153/66; PULSE 61; RESP 18; TEMP 36.8; O2SAT 95
== END 2024-07-03 23:59 | disposition home or self-care (01) ==
LOC: ONCMED 08:30
PROVIDERS: PCP Internal Medicine; Visit Provider Internal Medicine Hematology & Oncology
DX: N18.9 Chronic kidney disease, unspecified (principal); Z79.899 Other long term (current) drug therapy
CPT/HCPCS: 96372; Q5106

== ENCOUNTER 2024-08-02 13:15 | Oncology outpatient (recurring) (ONCR) | payer MEDICARE, OTHER, SELFPAY ==
[2024-07-12 08:42] LABS: Basophils % 0.3 %; Eosinophils # 0.3 10^3/uL (0.0-0.8); Eosinophils % 4.3 %; Hematocrit 27.8 % (36-47); Lymphocytes # 2.2 10^3/uL (0.8-4.8); Lymphocytes % 37.9 %; Mean Corpuscular HGB Conc 30.6 g/dL (30-55); Mean Corpuscular Hemoglobin 33.9 pg (27-33); Mean Corpuscular Volume 110.8 fl (85-98); Mean Platelet Volume 11.1 fL (7.4-10.4); Monocytes # 0.6 10^3/uL (0.2-0.9); Monocytes % 10.2 %; Neutrophils # 2.71 10^3/uL (1.8-7.7); Nucleated Red Blood Cells % 0 %; Platelet Count 167 10^3/cmm (157-399); Red Blood Count 2.51 10^6/uL (3.85-5.65); White Blood Count 5.78 10^3/uL (3.29-11.43)
[2024-07-12 09:02] LABS: Alanine Aminotransferase 20 U/L (0-33); Albumin Level 2.8 g/dL (3.5-5.2); Alkaline Phosphatase 64 U/L (35-105); Aspartate Amino Transferase 21 U/L (0-32); Blood Urea Nitrogen 28 mg/dL (8-23); Calcium 8.4 mg/dL (8.5-10.5); Carbon Dioxide 24 mmol/L (22-29); Chloride 103 mmol/L (98-107); Creatinine Clr Calc Pharmacy 21.0868; Ferritin 917 ng/mL (15-150); Glucose 95 mg/dL (65-115); Iron 41 ug/dL (37-145); Osmolality Calculated 289 mOsm/kg (285-295); Sodium 137 mmol/L (136-145); Total Bilirubin 0.2 mg/dL (0.15-1.2); Total Iron Binding Capacity 93 mcg/dl; Total Protein 5.8 g/dL (6.6-8.7); Unsaturated Iron Binding 52 ug/dL (112-347)
[2024-07-12 09:14] LABS: Lactate Dehydrogenase 163 U/L (135-214)
[2024-07-12 09:16] LABS: Vitamin B12 698 pg/mL (232-1245)
[2024-07-12 09:48] LABS: Folate Level > 20.0 ng/mL (4.8-37.3)
[2024-07-12 10:06] LABS: Reticulocyte % 2.1 % (0.5-2.0)
[2024-07-12] MEDS: EPOETIN ALFA EPBX 40000 UNIT/ML SUBCUT (10:35)
[2024-07-16 15:25] LABS: Soluble Transferrin Receptor 1.06 mg/L (0.76-1.76)
[2024-07-26 08:21] VITALS: BP 161/67; PULSE 70; RESP 16; TEMP 36.4; O2SAT 95
[2024-07-26 08:54] LABS: Basophils % 0.7 %; Eosinophils # 0.2 10^3/uL (0.0-0.8); Eosinophils % 3.9 %; Hematocrit 27.7 % (36-47); Lymphocytes # 2.7 10^3/uL (0.8-4.8); Lymphocytes % 47.9 %; Mean Corpuscular HGB Conc 30.7 g/dL (30-55); Mean Corpuscular Hemoglobin 34.7 pg (27-33); Mean Corpuscular Volume 113.1 fl (85-98); Mean Platelet Volume 11.3 fL (7.4-10.4); Monocytes # 0.6 10^3/uL (0.2-0.9); Neutrophils # 2.03 10^3/uL (1.8-7.7); Neutrophils % 36.1 %; Nucleated Red Blood Cells % 0 %; Platelet Count 150 10^3/cmm (157-399); Red Blood Count 2.45 10^6/uL (3.85-5.65); Red Cell Distribution Width 15.5 % (12.1-15.1); White Blood Count 5.62 10^3/uL (3.29-11.43)
[2024-07-26] MEDS: EPOETIN ALFA EPBX 40000 UNIT/ML SUBCUT (09:22)
[2024-07-26 09:24] VITALS: BP 162/74; PULSE 74; RESP 16; TEMP 36.4; O2SAT 95
== END 2024-08-03 23:59 | disposition home or self-care (01) ==
PROVIDERS: Internal Medicine Hematology & Oncology; PCP Internal Medicine; Visit Provider Internal Medicine Medical Oncology
DX: Z53.9 Procedure and treatment not carried out, unspecified reason (principal)
CPT/HCPCS: 36415; 80053; 82607; 82728; 82746; 83540; 83550; 83615; 84238; 85025; 85045; 96372; 99214; Q5106

== ENCOUNTER 2024-08-30 11:00 | Oncology outpatient (recurring) (ONCR) | payer MEDICARE, OTHER, SELFPAY ==
[2024-08-09 12:00] LABS: Basophils % 0.4 %; Eosinophils # 0.1 10^3/uL (0.0-0.8); Hematocrit 30.8 % (36-47); Lymphocytes # 2.1 10^3/uL (0.8-4.8); Lymphocytes % 18.2 %; Mean Corpuscular HGB Conc 30.2 g/dL (30-55); Mean Corpuscular Hemoglobin 34.8 pg (27-33); Mean Corpuscular Volume 115.4 fl (85-98); Mean Platelet Volume 11.7 fL (7.4-10.4); Monocytes # 0.8 10^3/uL (0.2-0.9); Monocytes % 7.4 %; Neutrophils # 8.15 10^3/uL (1.8-7.7); Neutrophils % 72.2 %; Nucleated Red Blood Cells % 0 %; Platelet Count 153 10^3/cmm (157-399); Red Blood Count 2.67 10^6/uL (3.85-5.65); Red Cell Distribution Width 16.3 % (12.1-15.1); White Blood Count 11.29 10^3/uL (3.29-11.43)
[2024-08-09 12:18] LABS: Alanine Aminotransferase 15 U/L (0-33); Albumin Level 3.3 g/dL (3.5-5.2); Alkaline Phosphatase 75 U/L (35-105); Anion Gap 15.2 (5-19); Aspartate Amino Transferase 26 U/L (0-32); Blood Urea Nitrogen 28 mg/dL (8-23); Calcium 8.3 mg/dL (8.5-10.5); Carbon Dioxide 24 mmol/L (22-29); Chloride 107 mmol/L (98-107); Creatinine Clr Calc Pharmacy 21.2004; Globulin 2.6 g/dL (1.3-4.6); Glucose 100 mg/dL (65-115); Osmolality Calculated 300 mOsm/kg (285-295); Potassium 4.2 mmol/L (3.5-5.1); Sodium 142 mmol/L (136-145); Total Bilirubin 0.3 mg/dL (0.15-1.2); Total Protein 5.9 g/dL (6.6-8.7)
[2024-08-09] MEDS: EPOETIN ALFA EPBX 40000 UNIT/ML SUBCUT (13:44)
[2024-08-16 12:10] LABS: Basophils % 0.2 %; Eosinophils # 0.2 10^3/uL (0.0-0.8); Eosinophils % 1.6 %; Hematocrit 30.3 % (36-47); Lymphocytes # 2.2 10^3/uL (0.8-4.8); Lymphocytes % 20.9 %; Mean Corpuscular HGB Conc 30.4 g/dL (30-55); Mean Corpuscular Hemoglobin 35.4 pg (27-33); Mean Corpuscular Volume 116.5 fl (85-98); Monocytes # 0.9 10^3/uL (0.2-0.9); Neutrophils # 7.07 10^3/uL (1.8-7.7); Neutrophils % 67.3 %; Nucleated Red Blood Cells % 0 %; Platelet Count 175 10^3/cmm (157-399); Red Cell Distribution Width 16.5 % (12.1-15.1); White Blood Count 10.49 10^3/uL (3.29-11.43)
[2024-08-16] MEDS: [UNRECOGNIZED DRUG - REMARK] 40000 UNIT SUBCUT (12:46)
[2024-08-23 12:12] VITALS: BP 172/67; PULSE 56; RESP 17; TEMP 36.6; O2SAT 97
[2024-08-23 12:14] LABS: Basophils % 0.5 %; Eosinophils # 0.3 10^3/uL (0.0-0.8); Lymphocytes # 2.1 10^3/uL (0.8-4.8); Monocytes # 0.7 10^3/uL (0.2-0.9); Monocytes % 11.2 %; Neutrophils # 2.72 10^3/uL (1.8-7.7); Nucleated Red Blood Cells % 0 %; Platelet Count 151 10^3/cmm (157-399); Red Blood Count 2.75 10^6/uL (3.85-5.65); Red Cell Distribution Width 17.5 % (12.1-15.1)
[2024-08-23] MEDS: [UNRECOGNIZED DRUG - REMARK] 40000 UNIT SUBCUT (12:56)
[2024-08-30 10:59] LABS: Basophils % 0.2 %; Eosinophils # 0.1 10^3/uL (0.0-0.8); Eosinophils % 1.4 %; Hematocrit 35.4 % (36-47); Lymphocytes # 1.7 10^3/uL (0.8-4.8); Lymphocytes % 16.8 %; Mean Corpuscular HGB Conc 30.8 g/dL (30-55); Mean Corpuscular Hemoglobin 35.4 pg (27-33); Mean Corpuscular Volume 114.9 fl (85-98); Mean Platelet Volume 11.3 fL (7.4-10.4); Monocytes # 0.7 10^3/uL (0.2-0.9); Monocytes % 6.9 %; Neutrophils % 74.3 %; Nucleated Red Blood Cells % 0.3 %; Platelet Count 171 10^3/cmm (157-399); Red Blood Count 3.08 10^6/uL (3.85-5.65); Red Cell Distribution Width 17.1 % (12.1-15.1); White Blood Count 9.83 10^3/uL (3.29-11.43)
== END 2024-09-03 23:59 | disposition home or self-care (01) ==
PROVIDERS: Nurse Practitioner Family; PCP Internal Medicine; Visit Provider Internal Medicine Medical Oncology
DX: Z53.9 Procedure and treatment not carried out, unspecified reason (principal); I25.10 Atherosclerotic heart disease of native coronary artery without angina pectoris
CPT/HCPCS: 36415; 80053; 85025; 96372; 99213; Q5106

== ENCOUNTER 2024-09-27 09:15 | Oncology outpatient (recurring) (ONCR) | payer MEDICARE, OTHER, SELFPAY ==
[2024-09-06 09:37] LABS: Basophils % 0.6 %; Eosinophils # 0.2 10^3/uL (0.0-0.8); Eosinophils % 3.9 %; Hematocrit 34.7 % (36-47); Lymphocytes # 1.9 10^3/uL (0.8-4.8); Mean Corpuscular HGB Conc 31.1 g/dL (30-55); Mean Corpuscular Hemoglobin 35.4 pg (27-33); Mean Corpuscular Volume 113.8 fl (85-98); Mean Platelet Volume 12.1 fL (7.4-10.4); Monocytes # 0.6 10^3/uL (0.2-0.9); Monocytes % 9.5 %; Neutrophils # 3.37 10^3/uL (1.8-7.7); Neutrophils % 54.5 %; Nucleated Red Blood Cells % 0 %; Platelet Count 136 10^3/cmm (157-399); Red Blood Count 3.05 10^6/uL (3.85-5.65); Red Cell Distribution Width 16.6 % (12.1-15.1); White Blood Count 6.19 10^3/uL (3.29-11.43)
[2024-09-06 09:59] LABS: Alanine Aminotransferase 13 U/L (0-33); Albumin Level 3.1 g/dL (3.5-5.2); Alkaline Phosphatase 79 U/L (35-105); Anion Gap 14.8 (5-19); Aspartate Amino Transferase 14 U/L (0-32); Blood Urea Nitrogen 44 mg/dL (8-23); Calcium 8.4 mg/dL (8.5-10.5); Carbon Dioxide 25 mmol/L (22-29); Chloride 106 mmol/L (98-107); Creatinine Clr Calc Pharmacy 18.7069; Globulin 2.2 g/dL (1.3-4.6); Glucose 117 mg/dL (65-115); Osmolality Calculated 306 mOsm/kg (285-295); Potassium 3.8 mmol/L (3.5-5.1); Sodium 142 mmol/L (136-145); Total Bilirubin 0.5 mg/dL (0.15-1.2); Total Protein 5.3 g/dL (6.6-8.7)
[2024-09-13 09:14] LABS: Basophils % 0.5 %; Eosinophils # 0.3 10^3/uL (0.0-0.8); Eosinophils % 5.2 %; Hematocrit 29.9 % (36-47); Lymphocytes # 2.3 10^3/uL (0.8-4.8); Lymphocytes % 39.5 %; Mean Corpuscular HGB Conc 29.8 g/dL (30-55); Mean Corpuscular Hemoglobin 34.8 pg (27-33); Mean Corpuscular Volume 116.8 fl (85-98); Mean Platelet Volume 11.8 fL (7.4-10.4); Monocytes # 0.5 10^3/uL (0.2-0.9); Monocytes % 8.6 %; Neutrophils # 2.71 10^3/uL (1.8-7.7); Neutrophils % 45.7 %; Nucleated Red Blood Cells % 0 %; Platelet Count 131 10^3/cmm (157-399); Red Blood Count 2.56 10^6/uL (3.85-5.65); Red Cell Distribution Width 15.7 % (12.1-15.1); White Blood Count 5.93 10^3/uL (3.29-11.43)
[2024-09-13 09:27] LABS: Alanine Aminotransferase 25 U/L (0-33); Alkaline Phosphatase 65 U/L (35-105); Anion Gap 13.1 (5-19); Aspartate Amino Transferase 22 U/L (0-32); Blood Urea Nitrogen 29 mg/dL (8-23); Calcium 8.2 mg/dL (8.5-10.5); Carbon Dioxide 24 mmol/L (22-29); Chloride 106 mmol/L (98-107); Creatinine Clr Calc Pharmacy 24.2089; Globulin 2.4 g/dL (1.3-4.6); Glucose 109 mg/dL (65-115); Osmolality Calculated 294 mOsm/kg (285-295); Potassium 4.1 mmol/L (3.5-5.1); Sodium 139 mmol/L (136-145); Total Bilirubin 0.3 mg/dL (0.15-1.2); Total Protein 5.4 g/dL (6.6-8.7)
[2024-09-13] MEDS: [UNRECOGNIZED DRUG - REMARK] 40000 UNIT SUBCUT (10:49)
[2024-09-27 09:06] LABS: Basophils % 0.4 %; Eosinophils # 0.2 10^3/uL (0.0-0.8); Eosinophils % 2.2 %; Hematocrit 32.6 % (36-47); Lymphocytes # 2.5 10^3/uL (0.8-4.8); Lymphocytes % 34.9 %; Mean Corpuscular Hemoglobin 36.3 pg (27-33); Mean Corpuscular Volume 117.3 fl (85-98); Mean Platelet Volume 11.5 fL (7.4-10.4); Monocytes # 0.7 10^3/uL (0.2-0.9); Monocytes % 10.2 %; Neutrophils # 3.75 10^3/uL (1.8-7.7); Nucleated Red Blood Cells % 0 %; Platelet Count 150 10^3/cmm (157-399); Red Blood Count 2.78 10^6/uL (3.85-5.65); Red Cell Distribution Width 15.6 % (12.1-15.1); White Blood Count 7.22 10^3/uL (3.29-11.43)
[2024-09-27 09:28] LABS: Alanine Aminotransferase 18 U/L (0-33); Albumin Level 3.3 g/dL (3.5-5.2); Alkaline Phosphatase 68 U/L (35-105); Anion Gap 14.6 (5-19); Aspartate Amino Transferase 14 U/L (0-32); Blood Urea Nitrogen 48 mg/dL (8-23); Calcium 8.5 mg/dL (8.5-10.5); Carbon Dioxide 25 mmol/L (22-29); Chloride 105 mmol/L (98-107); Creatinine Clr Calc Pharmacy 18.7069; Globulin 2.3 g/dL (1.3-4.6); Glucose 166 mg/dL (65-115); Osmolality Calculated 306 mOsm/kg (285-295); Potassium 4.6 mmol/L (3.5-5.1); Sodium 140 mmol/L (136-145); Total Bilirubin 0.4 mg/dL (0.15-1.2); Total Protein 5.6 g/dL (6.6-8.7)
== END 2024-10-01 23:59 | disposition home or self-care (01) ==
PROVIDERS: Nurse Practitioner Family; PCP Internal Medicine; Visit Provider Internal Medicine Medical Oncology
DX: N18.9 Chronic kidney disease, unspecified; Z53.9 Procedure and treatment not carried out, unspecified reason
CPT/HCPCS: 36415; 80053; 85025; 96372; 99214; Q5106

== ENCOUNTER 2024-10-04 08:04 | Oncology outpatient (recurring) (ONCR) | payer MEDICARE, OTHER, SELFPAY ==
[2024-10-04 08:22] LABS: Basophils % 0.4 %; Eosinophils # 0.3 10^3/uL (0.0-0.8); Eosinophils % 3.1 %; Hematocrit 30.7 % (36-47); Lymphocytes # 3.4 10^3/uL (0.8-4.8); Mean Corpuscular HGB Conc 30.6 g/dL (30-55); Mean Corpuscular Hemoglobin 35.5 pg (27-33); Mean Corpuscular Volume 115.8 fl (85-98); Mean Platelet Volume 11.8 fL (7.4-10.4); Monocytes # 0.6 10^3/uL (0.2-0.9); Monocytes % 7.8 %; Neutrophils # 3.62 10^3/uL (1.8-7.7); Neutrophils % 45.4 %; Nucleated Red Blood Cells % 0 %; Platelet Count 129 10^3/cmm (157-399); Red Blood Count 2.65 10^6/uL (3.85-5.65); Red Cell Distribution Width 15.2 % (12.1-15.1); White Blood Count 7.97 10^3/uL (3.29-11.43)
[2024-10-04 08:47] LABS: Alanine Aminotransferase 35 U/L (0-33); Albumin Level 3.2 g/dL (3.5-5.2); Alkaline Phosphatase 77 U/L (35-105); Anion Gap 12.7 (5-19); Aspartate Amino Transferase 32 U/L (0-32); Blood Urea Nitrogen 27 mg/dL (8-23); Calcium 8.2 mg/dL (8.5-10.5); Carbon Dioxide 24 mmol/L (22-29); Chloride 107 mmol/L (98-107); Globulin 2.5 g/dL (1.3-4.6); Glucose 131 mg/dL (65-115); Osmolality Calculated 295 mOsm/kg (285-295); Potassium 4.7 mmol/L (3.5-5.1); Sodium 139 mmol/L (136-145); Total Bilirubin 0.2 mg/dL (0.15-1.2); Total Protein 5.7 g/dL (6.6-8.7)
[2024-10-04] MEDS: epoetin alfa-epbx 40,000 unit/ml SDV (non-ESRD oncology clinic) 40000 UNIT SUBCUT (09:21)
== END 2024-11-01 23:59 | disposition home or self-care (01) ==
PROVIDERS: Nurse Practitioner Family; PCP Internal Medicine; Visit Provider Internal Medicine Medical Oncology
DX: N18.9 Chronic kidney disease, unspecified (principal); Z79.899 Other long term (current) drug therapy
CPT/HCPCS: 36415; 80053; 85025; 96372; Q5106

== ENCOUNTER 2024-11-09 14:02 | Outpatient (CLI) | payer MEDICARE, OTHER, SELFPAY ==
[2024-11-09 14:46] LABS: Bacteria Urine 4+ /hpf; Hyaline Casts Urine 8.26 /lpf; Squamous Epithelial Cell Urine 0-5 /hpf (0-5); WBC Urine 21-50 /hpf (0-5)
[2024-11-09 14:59] LABS: Add Urine Microscopic? YES; Bilirubin Urine Neg (Negative); Blood Urine Neg (Negative); Glucose Urine UA 4+ (Normal); Ketones Urine Negative (Negative); Nitrate Urine Negative (Negative); Protein Urine Trace (Negative); Specific Gravity, Urine 1.015 (1.005-1.030); Urine Appearance Slightly Cloudy (CLEAR); Urine Color Yellow (Yellow); Urobilinogen Urine Norm (Negative); pH Urine 5 (5-7)
[2024-11-09 15:00] LABS: Leukocyte Esterase Urine 2+ (Negative); UA Slide Review UA Slide Review Perf
[2024-11-09 15:25] LABS: Add Urine Culture? No
== END 2024-11-09 14:03 | disposition home or self-care (01) ==
LOC: LAB 14:04
PROVIDERS: PCP Internal Medicine; Visit Provider Internal Medicine
DX: R39.9 Unspecified symptoms and signs involving the genitourinary system (principal); Z87.440 Personal history of urinary (tract) infections
CPT/HCPCS: 81001; 87086

== ENCOUNTER 2025-01-06 16:22 | Outpatient (CLI) | payer MEDICARE, OTHER, SELFPAY ==
[2025-01-06 18:25] LABS: Alanine Aminotransferase 23 U/L (0-33); Albumin Level 3.6 g/dL (3.5-5.2); Alkaline Phosphatase 73 U/L (35-105); Anion Gap 16.6 (5-19); Aspartate Amino Transferase 17 U/L (0-32); Blood Urea Nitrogen 24 mg/dL (8-23); Calcium 8.3 mg/dL (8.5-10.5); Carbon Dioxide 22 mmol/L (22-29); Chloride 105 mmol/L (98-107); Globulin 2.2 g/dL (1.3-4.6); Glucose 130 mg/dL (65-115); Osmolality Calculated 294 mOsm/kg (285-295); Potassium 4.6 mmol/L (3.5-5.1); Sodium 139 mmol/L (136-145); Total Bilirubin 0.3 mg/dL (0.15-1.2); Total Protein 5.8 g/dL (6.6-8.7)
== END 2025-01-06 16:23 | disposition home or self-care (01) ==
PROVIDERS: PCP Internal Medicine; Visit Provider Internal Medicine Medical Oncology
DX: I50.43 Acute on chronic combined systolic (congestive) and diastolic (congestive) heart failure (principal)
CPT/HCPCS: 80053

== ENCOUNTER 2025-01-27 12:15 | Outpatient (CLI) | payer MEDICARE, SELFPAY ==
[2025-01-27 13:23] LABS: Ferritin 382 ng/mL (15-150); Iron 58 ug/dL (37-145); Percent Saturation 32.2 % (20-50); Total Iron Binding Capacity 180 mcg/dl; Unsaturated Iron Binding 122 ug/dL (112-347)
== END 2025-01-27 12:16 | disposition home or self-care (01) ==
PROVIDERS: PCP Internal Medicine; Visit Provider Registered Nurse
DX: N18.4 Chronic kidney disease, stage 4 (severe) (principal)
CPT/HCPCS: 82728; 83540; 83550

== ENCOUNTER 2025-03-15 13:30 | Oncology outpatient (recurring) (ONCR) | payer MEDICARE, OTHER, SELFPAY ==
[2025-03-08] MEDS: ferumoxytol (NON-ESRD) 510 MG in sodium chloride 0.9% (100 ml) 100 ML 351 MG IV (14:27)
[2025-03-08] MEDS: darbepoetin 60 mcg/0.3 mL INJ SUBCUT (14:29)
[2025-03-08 15:00] VITALS: BP 124/74; PULSE 78; RESP 17; TEMP 36.6; O2SAT 96
[2025-03-15] MEDS: ferumoxytol (NON-ESRD) 510 MG in sodium chloride 0.9% (100 ml) 100 ML 351 MG IV (13:19)
[2025-03-15 13:50] VITALS: BP 129/66; PULSE 59; RESP 18; TEMP 36.6; O2SAT 96
== END 2025-04-03 23:59 | disposition home or self-care (01) ==
PROVIDERS: PCP Internal Medicine; Visit Provider Internal Medicine Medical Oncology
DX: Z53.9 Procedure and treatment not carried out, unspecified reason; N18.9 Chronic kidney disease, unspecified; Z79.899 Other long term (current) drug therapy
CPT/HCPCS: 96365; 96372; J0881; J7050; Q0138

== ENCOUNTER 2025-04-13 11:41 | Oncology outpatient (recurring) (ONCR) | payer MEDICARE, OTHER, SELFPAY ==
[2025-04-13 12:04] VITALS: BP 147/69; PULSE 54; RESP 19; TEMP 36.6; O2SAT 95
[2025-04-13] MEDS: darbepoetin 60 mcg/0.3 mL INJ SUBCUT (12:08)
== END 2025-05-03 23:59 | disposition home or self-care (01) ==
PROVIDERS: PCP Internal Medicine; Visit Provider Internal Medicine Medical Oncology
DX: N18.9 Chronic kidney disease, unspecified (principal); Z79.899 Other long term (current) drug therapy
CPT/HCPCS: 96372; J0881

== ENCOUNTER 2025-04-21 17:29 | Emergency (ER) | payer MEDICARE, OTHER, SELFPAY ==
--- OUTSIDE RECORDS SUMMARY | 2025-04-19 12:34 | XMS_ITS | Encounter Summary ---
Author Organization [facility] Address [address] [place] [address] Care Team Providers Care Nonprofit Manager Name Role Phone Matti Leon MD Primary Care Provider [phone] Reason for Referral * CT Scan (Routine) - Closed Specialty Diagnoses / Procedures Referred By Contac t Referred To Contact Radiology Diagnoses Chronic bronchitis, unspecified chronic bronchitis type (CMS/HCC) Procedures CT CHEST WO CONTRAST Rosalina Zhou MD [address] [facility] [address] [place] [address] Phone: tel: fax: [facility] CT Scan [place] [address] [place] [address] Phone: tel: fax: Referral ID Status Reason Start Date Expiration Date V isits Requested Visits Authorized [id number] Closed [facility] CTS to Schedule 04/12/2025 05/13/2026 1 1 Reason for Visit * CT Scan (Routine) - Closed Specialty Diagnoses / Procedures Referred By Contac t Referred To Contact Radiology Diagnoses Chronic bronchitis, unspecified chronic bronchitis type (CMS/HCC) Procedures CT CHEST WO CONTRAST Rosalina Zhou MD [address] [facility] [address] [place] [address] Phone: tel: fax: [facility] CT Scan [place] [address] [place] [address] Phone: tel: fax: Referral ID Status Reason Start Date Expiration Date V isits Requested Visits Authorized [id number] Closed [facility] CTS to Schedule 04/12/2025 05/13/2026 1 1 Encounter Details Date Type Department Care Team (Latest Contact Info) Description 04/19/2025 12:34 PM CDT - 04/19/2025 11:59 PM CDT Hospital Encounter [facility] CT Scan [place] [address] [place] [address] Rosalina Zhou MD [address] [facility] [address] [place] [address] Arrived Discharge Disposition: Home or Self Care Social History Tobacco Use Types Packs/Day Years Used Date Smoking Tobacco: Passive Smoke Exposure - Never Smoker Cigarettes 1 5 - 08/10/1969 Passive Smoke Exposure: Yes Smokeless Tobacco: Never Alcohol Use Standard Drinks/Week Comments No 0 (1 standard drink = 0.6 oz pur e alcohol) Financial Resource Strain Answer Date R ecorded How hard is it for you to pa y for the very basics like food, housing, medical care, and heating? Not hard at all 10/03/2022 Food Insecurity Answer Date Recorded In the past 12 months, have you worried that your food would run out before you had money to buy more? Never true 10/03/2022 In the past 12 months, did y ou run out of food and didn't have money to buy more? Never true 10/03/2022 Transportation Needs Answer Date Record ed In the past 12 months, has l ack of transportation kept you from medical appointments or from getting medications? No 10/03/2022 Lack of Transportation (Non-Medical) Not on file 10/03/2022 Feeling Safe Answer Date Recorded Are you in a relationship wi th someone who hurts you emotionally and/or physically? 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 280 mL 5 5 04/12/20 26 gabapentin (NEURONTIN) 300 mg capsuleIndication s:Neurogenic claudication TAKE 1 CAPSULE BY MOUTH IN THE AFTERNOON AND 2 CAPSULES IN THE EVENING 90 Capsule 5 ipratropium bromide (ATROVENT) 0.02 % Solution Take 2.5 mL (0.5 mg) by inhalation every 6 hours as needed for Shortness of Breath. 1 mL 5 5 budesonide (PULMICORT RESPULE) 0.25 mg/2 mL Suspension for Nebulization Take 2 mL (0.25 mg) by inhalation 2 times daily. 60 Ampule 3 5 predniSONE (DELTASONE) 5 mg tablet Take 1 Tablet (5 mg) by mouth daily. 90 Tablet 1 5 cpap medical deviceIndications :Obstructive sleep apnea CPAP (E0601) at 8 cm/H2O with heated humidifier (E0562), MASK OF CHOICE, headgear(A7035), cushions (A7031) 1/1 month, (A7032) (A7033) 2 pair/1 month. 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),Acute combined systolic and diastolic heart failure (CMS/HCC),Product natalie cough Home Oxygen Concentrator yes at 1 L/M Rest, 3 L/M Activity, CPAP L/M Sleep, Delivery Device: Nasal Cannula Portability: yes, 1 L/M Rest, 3 L/M Activity, May provide device best for patient needs(E system,home fill, conserving device) Length of Need: 99 months 1 Each 5 omeprazole (PriLOSEC) 40 mg Capsule, Delayed Release(E.C.)Antonina cations:Gastroeso phageal reflux disease without esophagitis TAKE 1 CAPSULE BY MOUTH EVERY DAY 100 Capsule 3 5 levothyroxine 50 mcg tabletIndications :Hypothyroidism, unspecified type TAKE 1 TABLET BY MOUTH EVERY DAY IN THE MORNING 100 Tablet 3 5 amiodarone (CORDARONE) 200 mg tablet TAKE 1 TABLET BY MOUTH EVERY DAY 90 Tablet 3 5 potassium CHLORIDE (KLOR-CON M10) 10 mEq Extended Release tablet TAKE 1 TABLET BY MOUTH EVERY DAY 100 Tablet 3 5 isosorbide mononitrate (IMDUR) 30 mg Extended Release 24 hour tablet Take 1 Tablet (30 mg) by mouth daily in the morning. 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 90 Tablet 3 4 promethazine (PHENERGAN) 25 mg tablet Take 1 Tablet (25 mg) by mouth every 6 hours as needed for Nausea/Emesis. 20 Tablet 4 sennosides-docusa te sodium (SENNA-S) 8.6-50 mg tablet Take 1 Tablet by mouth 2 times daily as needed for Constipation. 60 Tablet 4 vit A,C and V-lilzcf-jqgnxlsx (Ocuvite with Lutein) 300 mcg-200 mg-27 mg-2 mg Tablet Take 1 Tablet by mouth daily. 100 Tablet 4 ipratropium-albut Fabian (DUONEB) 0.5 mg-3 mg(2.5 mg base)/3 mL Solution for NebulizationIndic ations:Chronic cough Take 3 mL by inhalation every 6 hours as needed for Shortness of Breath. Dispense 1 box 1 Each 1 4 albuterol sulfate HFA 90 mcg/actuation aerosol inhalerIndication s:Centrilobular emphysema (CMS/HCC),Moderat e persistent asthma without complication Take 2 Puffs by inhalation every 4 hours as needed for Wheezing. 6.7 Gram 3 4 carvediloL (COREG) 3.125 mg tablet TAKE 1 TABLET BY MOUTH EVERY 12 HOURS 200 Tablet 3 4 HYDROcodone-aceta minophen (NORCO) 7.5-325 mg Tablet Take 1 Tablet by mouth every 4 hours as needed for Pain. 4 nitroglycerin (NITROSTAT) 0.4 mg Tablet, Sublingual Place 1 Tablet (0.4 mg) under tongue every 5 minutes as needed for Chest Pain. If still having chest pain after 2 doses, take third tablet and call 911 25 Tablet 2 4 dapagliflozin propanediol (Farxiga) 10 mg Tablet Take 1 Tablet (10 mg) by mouth daily in the morning. 30 Tablet 5 4 fluticasone propionate (FLONASE) 50 mcg/spray [place], Suspension nasal inhaler Administer 1 Richmond in each nostril 1 time daily as needed for Other (See Comment) (at hs prior to applying CPAP). 16 Gram 4 ondansetron (ZOFRAN ODT) 4 mg Tablet, Rapid DissolveIndicatio ns:Nausea and vomiting, unspecified vomiting type DISSOLVE 1 TABLET ON TOP OF TONGUE, THEN SWALLOW WITH SALIVA. 90 Tablet 3 4 aspirin (ECOTRIN EC) 81 mg Tablet, Delayed Release (E.C.) take 1 tablet by mouth every day 90 Tablet 4 glucosamine HCl 750 mg Tablet 1 tablet Orally twice daily polyethylene glycol (MIRALAX) 17 gram Powder in Packet Take 1 Packet (17 Grams) by mouth 2 times daily. 3 diclofenac sodium (VOLTAREN) 1 % gel 4 grams applied topically Q6H prn pain vit C,L-Yk-tbmol-lute in-zeaxan (PreserVision AREDS-2) 250-90-40-1 mg Tablet, Chewable 2 times daily. sodium chloride-aloe vera (AYR) Gel by See Admin Instructions route 2 times daily. 2 cholecalciferol, vitamin D3, (VITAMIN D3 ORAL) Take 1 Tablet by mouth daily. documented as of this encounter Plan of Treatment Upcoming Encounters Date Type Department Care Team (Late st Contact Info) Description 04/27/2025 11:00 AM CDT Office Visit [facility] [address] [facility] [address] [place] [address] Leticia Martinez, RN HEMODIALYSIS [address] [facility] [address] [place] [address] 07/12/2025 11:00 AM ADJUNCT FACULTY INSTRUCTOR Office Visit [facility] Infectious Disease-[place] [address] [place] [address] Rosalina Zhou MD [address] [place] [address] 08/02/2025 1:40 PM ADJUNCT FACULTY INSTRUCTOR Office Visit [facility] Rheumatology- [place] [address] [address] Roland Quick MD [address] [facility] [address] [place] [address] 12/06/2025 11:00 AM CDT Office Visit [facility] Internal Medicine[place] [address] [place] [address] Matti Leon MD [address] [place] [address] 12/20/2025 10:15 AM CDT Office Visit [facility] [employer] Contact Printer Optometry [facility] [address] [place] [id number] 12/20/2025 10:30 AM CDT Office Visit [facility] [employer] Contact Printer [facility]ometry [facility] [phone] [place] [address] DaughertyMarita, OD [address] [place] [address] 03/27/2026 2:15 PM CDT Office Visit [facility] Sleep Center [address] [facility] [address] [place] [address] Lisa Barros, [facility] [address] [address] documented as of this encounter Goals Goal Patient Goal Type Associated Problems Recent Progress Patient-Stated? Author Heart Failure Goal Care Plan Heart Failure Problem No Haleigh Lyles Duarte documented as of this encounter Procedures Procedure Name Priority Date/Time Associated Diagnosis Comments CT CHEST WO CONTRAST Routine 04/19/2025 1:45 PM CDT Chronic bronchitis, unspecified chronic bronchitis type (CMS/HCC) documented in this encounter Results * CT CHEST WO CONTRAST (04/19/2025 1:45 PM CDT) Anatomical Region Laterality Modality Chest Computed Tomogra phy 04/19/2025 1:29 PM CDT Impressions 04/19/2025 2:10 PM CDT IMPRESSION: 1. A few benign-appearing nodules are seen in the lung apices, unchanged since the prior study. 2. COPD and emphysema. Narrative 04/19/2025 2:10 PM CDT Exam: CT CHEST WO CONTRAST Date/Time of Exam: 04/19/2025 1:45 PM Reason For Exam: COPD, surveillance. Axial images were obtained through the chest. Sagittal and coronal reformatted images are included. The study was performed without IV contrast. Comparison is to a prior study from 08/01/2022. There is no evidence of any abnormal soft tissue masses or adenopathy in the chest. A few nodular densities are seen in the right and left lung apices. The largest of these is in the left lung apex and measures 1.0 cm. These are all unchanged in size and appearance since the prior study and can be considered benign. Diffuse scarring is present in the lungs bilaterally. Moderate hyperinflation and emphysematous changes are present. Pleural thickening is seen laterally on the right. The heart is enlarged. There is no evidence of any pleural effusion or other abnormal fluid collections. There is no evidence of any thoracic aortic aneurysm. No pneumothorax is seen. Procedure Note Serjio Stoddard MD - 04/19/2025 Exam: CT CHEST WO CONTRAST Date/Time of Exam: 04/19/2025 1:45 PM Reason For Exam: COPD, surveillance. Axial images were obtained through the chest. Sagittal and coronal reformatted images are included. The study was performed without IV contrast. Comparison is to a prior study from 08/01/2022. There is no evidence of any abnormal soft tissue masses or adenopathy in the chest. A few nodular densities are seen in the right and left lung apices. The largest of these is in the left lung apex and measures 1.0 cm. These are all unchanged in size and appearance since the prior study and can be considered benign. Diffuse scarring is present in the lungs bilaterally. Moderate hyperinflation and emphysematous changes are present. Pleural thickening is seen laterally on the right. The heart is enlarged. There is no evidence of any pleural effusion or other abnormal fluid collections. There is no evidence of any thoracic aortic aneurysm. No pneumothorax is seen. IMPRESSION: 1. A few benign-appearing nodules are seen in the lung apices, unchanged since the prior study. 2. COPD and emphysema. Rosalina Zhou MD CT ORDERABLES Final Result documented in this encounter Visit Diagnoses Diagnosis Chronic bronchitis, unspecified chronic bronchitis type (CMS/HCC) documented in this encounter Additional Health Concerns Active Problems Noted Date Diagnosed Date Heart Failure Problem 12/15/2024 documented as of this encounter Care Teams Nonprofit Manager Relationship Specialty Start Date End Date Matti Leon MD [address] [facility] [address] [place] [address] PCP - General Internal Medicine 07/08/23 documented as of this encounter
[2025-04-21 17:30] VITALS: BP 143/58; PULSE 65; RESP 16; TEMP 36.8; O2SAT 96; BMI 29.9
--- OUTSIDE RECORDS SUMMARY | 2025-04-21 17:34 | XMS_ITS | Encounter Summary ---
Author Organization [facility] Address [address] [place] [address] Care Team Providers Care Shop Assistant Name Role Phone Roosevelt Penn MD Primary Care Provider Unava ilable Encounter Details Date Type Department Care Team (Latest Contact Info) Description 09/03/1999 Outpatient Historical [facility] Robert Bautista Jr., MD [address] [place] [id number] Unspecified essential hypertension (Primary Dx); Other and unspecified noninfectious gastroenteritis and colitis(558.9) Social History Tobacco Use Types Packs/Day Years Used Date Smoking Tobacco: Never Assessed Comments Unknown Sex and Gender Information Value Date Recorded Sex Assigned at Not on file Legal Sex Female 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
--- OUTSIDE RECORDS SUMMARY | 2025-04-21 17:34 | XMS_ITS | Encounter Summary ---
Author Organization [facility] Address [address] [place] [address] Care Team Providers Care Marine Welder Name Role Phone Roosevelt Penn MD Primary Care Provider Unava ilable Encounter Details Date Type Department Care Team (Latest Contact Info) Description 07/23/1999 Outpatient Historical [facility] Robert Bautista Jr., MD [address] [place] [id number] Esophageal reflux (Primary Dx); Unspecified essential hypertension; Bronchitis, not specified as acute or chronic Social History Tobacco Use Types Packs/Day Years Used Date Smoking Tobacco: Never Assessed Comments Unknown Sex and Gender Information Value Date Recorded Sex Assigned at Not on file 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
--- OUTSIDE RECORDS SUMMARY | 2025-04-21 17:34 | XMS_ITS | Encounter Summary ---
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
--- OUTSIDE RECORDS SUMMARY | 2025-04-21 17:34 | XMS_ITS | Encounter Summary ---
Author Organization [facility] Address [address] [place] [address] Care Team Providers Care Assistant Teacher Name Role Phone Roosevelt Penn MD Primary Care Provider Unava ilable Encounter Details Date Type Department Care Team (Latest Contact Info) Description 10/30/1998 Outpatient Historical [facility] Robert Bautista Jr., MD [address] [place] [phone] Osteoarthrosis, unspecified whether generalized or localized, unspecified site (Primary Dx); Unspecified essential hypertension; Anxiety state, unspecified Social History Tobacco Use Types Packs/Day Years Used Date Smoking Tobacco: Never Assessed Comments Unknown Sex and Gender Information Value Date Recorded Sex Assigned at Not on file 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
--- OUTSIDE RECORDS SUMMARY | 2025-04-21 17:34 | XMS_ITS | Encounter Summary ---
Author Organization [facility] Address [address] [place] [address] Care Team Providers Care Process Mechanic Name Role Phone Roosevelt Penn MD Primary Care Provider Unava ilable Encounter Details Date Type Department Care Team (Latest Contact Info) Description 12/26/2000 Outpatient Historical [facility] Robert Bautista Jr., MD [address] [place] [phone] Abdominal pain, unspecified site (Primary Dx); Hematuria; Urinary tract infection, site not specified Social History Tobacco Use Types Packs/Day Years Used Date Smoking Tobacco: Never Assessed Comments Unknown Sex and Gender Information Value Date Recorded Sex Assigned at Not on file 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
--- OUTSIDE RECORDS SUMMARY | 2025-04-21 17:34 | XMS_ITS | Encounter Summary ---
Author Organization [facility] Address [address] [place] [address] Care Team Providers Care Manager Route Name Role Phone Roosevelt Penn MD Primary Care Provider Unava ilable Reason for Referral * Outpatient Services (Routine) - Closed Specialty Diagnoses / Procedures Referred By Jeremias t Referred To Contact Diagnoses Diverticulitis of intestine without perforation or abscess without bleeding, unspecified part of intestinal tract Procedures CT ABDOMEN PELVIS WO CONTRAST CT ABDOMEN PELVIS W CONTRAST Ger Taylor MD Phone: tel: fax: [facility] Pre-Registration [place] CALL TO MAKE APPOINTMENT ONLY [address] [place] [address] Phone: tel: fax: Referral ID Status Reason Start Date Expiration Date Visits Re quested Visits Authorized [id number] Closed 09/04/2016 10/05/2017 1 1 LAB TECHNICIAN Encounter Details Date Type Department Care Team (Latest Contact Info) Description 09/05/2016 Ancillary Orders [facility] [address] [place] [address] Ger Taylor MD [address] [place] [address] Diverticulitis of intestine without perforation or abscess without bleeding, unspecified part of intestinal tract Social History Tobacco Use Types Packs/Day Years Used Date Smoking Tobacco: Former Cigarettes 1 2 0 08/04/1957 - 08/04/1959 Smokeless Tobacco: Never Alcohol Use Standard Drinks/Week Comments No 0 (1 standard drink = 0.6 oz pur e alcohol) Comments No Sex and Gender Information Value Date Recorded Sex Assigned at Not on file Legal Sex Female 5:56 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 Exam: CT ABDOMEN PELVIS WO CONTRAST Date/Time of Exam: 09/05/2016 2:30 PM Reason For Exam: Diverticulitis of intestine without perforation or abscess without bleeding, unspecified part of intestinal tract. Technique: Axial tomograms obtained through the abdomen and pelvis without IV contrast. Oral contrast given. Findings: Comparison to abdominal pelvic CT 06/18/2016. Imaged lung bases unremarkable. Parenchymal detail of solid abdominal organs limited by absence of IV contrast. Solid upper abdominal organs grossly unremarkable. Surgical absence of gallbladder. Bladder unremarkable. Surgical absence of uterus. Colonic diverticulosis. Appendix not visualized. No lymphadenopathy, free fluid or free air. Small fat-containing umbilical hernia. Moderate degenerative change of imaged spine. IMPRESSION: No apparent acute pathology. Colonic diverticulosis. Small fat-containing umbilical hernia. Narrative Procedure Note Lian Lucero MD - 09/05/2016 IMPRESSION IMPRESSION: Please see below. Exam: CT ABDOMEN PELVIS WO CONTRAST Date/Time of Exam: 09/05/2016 2:30 PM Reason For Exam: Diverticulitis of intestine without perforation or abscess without bleeding, unspecified part of intestinal tract. Technique: Axial tomograms obtained through the abdomen and pelvis without IV contrast. Oral contrast given. Findings: Comparison to abdominal pelvic CT 06/18/2016. Imaged lung bases unremarkable. Parenchymal detail of solid abdominal organs limited by absence of IV contrast. Solid upper abdominal organs grossly unremarkable. Surgical absence of gallbladder. Bladder unremarkable. Surgical absence of uterus. Colonic diverticulosis. Appendix not visualized. No lymphadenopathy, free fluid or free air. Small fat-containing umbilical hernia. Moderate degenerative change of imaged spine. IMPRESSION: No apparent acute pathology. Colonic diverticulosis. Small fat-containing umbilical hernia. Ger Taylor MD CT ORDERABLES Final Result documented in this encounter Visit Diagnoses Diagnosis Diverticulitis of intestine without perforation or abscess without bleeding, unspecified part of intestinal tract Diverticulitis of intestine without perforation or abscess without bleeding, unspecified part of intestinal tract documented in this encounter Care Teams Manager Route Relationship Specialty Start Date End Date Roosevelt Penn MD PCP - General Internal Medicine 06/25/17 documented as of this encounter
--- OUTSIDE RECORDS SUMMARY | 2025-04-21 17:34 | XMS_ITS | Encounter Summary ---
Author Organization [facility] Address [address] [place] [address] Care Team Providers Care Welding Equipment Repairer Name Role Phone Roosevelt Penn MD Primary Care Provider Unava ilable Encounter Details Date Type Department Care Team (Latest Contact Info) Description 06/02/2000 Outpatient Historical [facility] Robert Bautista Jr., MD [address] [place] [id number] Esophageal reflux (Primary Dx); Osteoporosis, unspecified Social History Tobacco Use Types Packs/Day Years Used Date Smoking Tobacco: Never Assessed Comments Unknown Sex and Gender Information Value Date Recorded Sex Assigned at Not on file 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
--- OUTSIDE RECORDS SUMMARY | 2025-04-21 17:34 | XMS_ITS | Encounter Summary ---
Author Organization [facility] Address [address] [place] [address] Care Team Providers Care Scaffold Worker Name Role Phone Roosevelt Penn MD Primary Care Provider Unava ilable Encounter Details Date Type Department Care Team (Latest Contact Info) Description 11/17/1998 Outpatient Historical [facility] Robert Bautista Jr., MD [address] [place] [id number] Routine medical exam (Primary Dx); Unspecified essential hypertension; Osteoarthrosis, unspecified whether generalized or localized, unspecified site Social History Tobacco Use Types Packs/Day Years Used Date Smoking Tobacco: Never Assessed Comments Unknown Sex and Gender Information Value Date Recorded Sex Assigned at Not on file 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
--- OUTSIDE RECORDS SUMMARY | 2025-04-21 17:34 | XMS_ITS | Encounter Summary ---
Author Organization [facility] Address [address] [place] [address] Care Team Providers Care Digital Marketing Consultant Name Role Phone Roosevelt Penn MD Primary Care Provider Unava ilable Encounter Details Date Type Department Care Team (Latest Contact Info) Description 05/30/1999 Outpatient Historical [facility] Kishore Hyman NO ADDRESS ON FILE Bronchopneumonia, organism unspecified (Primary Dx) Social History Tobacco Use Types Packs/Day Years Used Date Smoking Tobacco: Never Assessed Comments Unknown Sex and Gender Information Value Date Recorded Sex Assigned at Not on file 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
--- OUTSIDE RECORDS SUMMARY | 2025-04-21 17:34 | XMS_ITS | Encounter Summary ---
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
--- OUTSIDE RECORDS SUMMARY | 2025-04-21 17:34 | XMS_ITS | Encounter Summary ---
Author Organization [facility] Address [address] [place] [address] Care Team Providers Care Referral And Information Aide Name Role Phone Roosevelt Penn MD Primary Care Provider Unava ilable Encounter Details Date Type Department Care Team (Latest Contact Info) Description 10/10/1998 Outpatient Historical [facility] Nithin Adams MD [address] [place] [id number] Bronchitis, not specified as acute or chronic (Primary Dx); Other diseases of trachea and bronchus, not elsewhere classified Social History Tobacco Use Types Packs/Day Years Used Date Smoking Tobacco: Never Assessed Comments Unknown Sex and Gender Information Value Date Recorded Sex Assigned at Not on file Legal Sex Female 5:56 AM 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
--- OUTSIDE RECORDS SUMMARY | 2025-04-21 17:34 | XMS_ITS | Clinical Summary ---
Author Organization [facility] Address [address] [place] [address] Phone Care Team Providers Care Access Lead Name Role Phone Roosevelt Penn MD Primary Care Provider Unava ilable Allergies No known active allergies Medications levalbuterol (XOPENEX) 1.25 mg/0.5 mL Inhalation NebuIndications:A sthma Take 0.5 mL by inhalation every 6 hours as needed for Shortness of Breath, Wheezing and Other (See Comment) (cough). 30 Vial 11 04/03/20 11 Active CALCIUM CARBONATE/VITAMIN D3 (ZARI-600 WITH VITAMIN D ORAL) Take 1 Tab by mouth daily. Active Nebulizer & Compressor For Neb Misc DeviIndications:A sthma 1 Device 0 05/08/20 12 Active GLUCOSAMINE HCL/CHONDRO ASIF A (GLUCOSAMINE-ALEKSANDRA DROITIN ORAL) Take 1 Tablet by mouth 2 times daily FLEX MIN. Active Miscellaneous Medical Supply Bilateral carpal tunnel splints. 2 Each 08/02/20 16 Active tiotropium (SPIRIVA WITH HANDIHALER) 18 mcg capsuleIndication s:Centrilobular emphysema (CMS/HCC),Moderat e persistent asthma without complication Take 1 Capsule (18 mcg) by inhalation daily. 90 Capsule 3 07/02/20 18 Active Additional Information Patient taking differently:18 mcg InhalationDAILY PRN, Respiration, Shortness of Breath, Reported on 08/16/2020 albuterol HFA 90 mcg inhalerIndication s:Centrilobular emphysema (CMS/HCC),Moderat e persistent asthma without complication Take 2 Puffs by inhalation every 4 hours as needed for Shortness of Breath. 6.7 Gram 07/02/20 18 Active fluticasone-salme terol (ADVAIR DISKUS) 500-50 mcg/dose disk inhalerIndication s:Moderate persistent asthma without complication,Cent rilobular emphysema (CMS/HCC) Take 1 Puff by inhalation 2 times daily. 60 Each 11 07/02/20 18 Active Additional Information Patient taking differently:1 Puff InhalationTWO TIMES DAILY PRN, Shortness of Breath, Reported on 08/16/2020 pravastatin (PRAVACHOL) 40 mg tabletIndications :Mixed hyperlipidemia TAKE 1 TABELT BY MOUTH EVERY OTHER DAY 90 Tablet 3 02/24/20 19 Active chlorthalidone (HYGROTON) 25 mg tabletIndications :Benign hypertension with CKD (chronic kidney disease) stage III (CMS/HCC) Take 0.5 Tablets (12.5 mg) by mouth every Friday, Friday, and Friday. For blood pressure 90 Tablet 3 12/01/19 20 Active cpap medical deviceIndications :SARAHI on CPAP CPAP at a pressure of 8 CWP with heated humidifier, using a nasal mask Headgear q 6 mo; Mask Only q 3 mo; 1 cushion q mo; Tubing (Heated Yes; Non-heated Yes) q 3 mo; H20 Chamber q 6 mo; Chinstrap q 6 mo; Filters (disp 2/mo, non disp q 6 mo) Length of need:99 mo. DX: SARAHI (G47.33) ANNUAL RX REFILL for supplies 1 Each 01/31/20 20 Active lisinopriL (PRINIVIL) 20 mg tablet TAKE 1 TABLET BY MOUTH TWICE A DAY 180 Tablet 3 03/16/20 20 Active diclofenac sodium (VOLTAREN) 1 % gel Apply to affected area 1 time daily as needed. 03/31/20 20 Active fluticasone propionate (FLONASE) 50 mcg/spray [place], Suspension nasal inhaler Administer 1 Kingston in each nostril 1 time daily as needed. 03/30/20 20 Active Incruse Ellipta 62.5 mcg/actuation Disk with Device Take by inhalation 1 time daily as needed. 05/10/20 20 Active gabapentin (NEURONTIN) 300 mg capsuleIndication s:Left buttock pain Start gabapentin at 1 pill at bedtime. Increase by 1 pill every 7 days until taking 1 pill 3 times daily in divided doses. 100 Capsule 11 05/29/20 20 Active amLODIPine (NORVASC) 5 mg tablet TAKE 1 TABLET BY MOUTH EVERY DAY 90 Tablet 2 06/26/20 20 Active montelukast (SINGULAIR) 10 mg tablet Take 10 mg by mouth daily at bedtime. Active HYDROcodone-aceta minophen (NORCO) 5-325 mg tabletIndications :Bilateral carpal tunnel syndrome Take 1 Tablet by mouth every 4 hours as needed for Pain, Break-Through (POST OPERATIVE PAIN). Max Daily Amount: 6 Tablets 10 Tablet 08/25/19 21 Active omeprazole (PriLOSEC) 20 mg Capsule, Delayed Release(E.C.)Antonina cations:Gastroeso phageal reflux disease without esophagitis TAKE 1 CAPSULE BY MOUTH EVERY DAY 90 Capsule 3 09/19/19 21 Active baclofen (LIORESAL) 10 mg tabletIndications :Spinal stenosis of lumbar region with neurogenic claudication,Spon dylolisthesis at L5-S1 level,Spondylolys is of lumbosacral region TAKE 1 TABLET (10 MG) BY MOUTH 3 TIMES DAILY NEEDED FOR PAIN (SPASMS/CRAMPING). 270 Tablet 1 10/03/19 21 Active predniSONE (DELTASONE) 5 mg tablet TAKE 1 TABLET BY MOUTH EVERY DAY 90 Tablet 2 11/07/19 21 Active methotrexate (RHEUMATREX) 2.5 mg Tablet Take 5 Tablets (12.5 mg) by mouth every 7 days. 60 Tablet 12/26/19 21 Active alendronate (FOSAMAX) 70 mg tablet TAKE 1TAB BY MOUTH EVERY 7DAYS ON AN EMPTY STOMACH BEFORE OTHER MEDS W/ 8OZ OF WATER, STAY UP 30MINS 12 Tablet 1 01/25/20 21 Active sulfaSALAzine (AZULFIDINE) 500 mg tablet TAKE 2 TABLETS BY MOUTH DAILY IN THE MORNING AND 3 TABLETS IN THE EVENING 450 Tablet 01/25/20 21 Active folic acid (FOLVITE) 1 mg tablet TAKE 1 TABLET BY MOUTH EVERY DAY 90 Tablet 1 01/30/20 21 Active Active Problems Problem Noted Date Diagnosed Date Spondylolisthesis at L5-S1 level 09/25/2020 Spondylolysis of lumbosacral region 09/25/2020 DDD (degenerative disc disease), lumbar 09/25/19 DDD (degenerative disc disease), lumbosacral Lumbar facet arthropathy 09/25/2020 Lumbar facet joint pain 09/25/2020 Neuroforaminal stenosis of lumbar spine 09/25/19 Scoliosis (and kyphoscoliosis), idiopathic 09/25 PCO (posterior capsular opacification), bilatera l 09/25/2020 Dry eyes, bilateral 09/25/2020 Carpal tunnel syndrome of right wrist 08/16/2020 Spinal stenosis of lumbar re gion with neurogenic claudication 08/11/2020 Elevated MCV 01/01/2020 Pseudophakia of both eyes 06/23/2019 Astigmatism of both eyes with presbyopia 019 Bilateral carpal tunnel syndrome 11/30/2018 Pure hypercholesterolemia 07/02/2018 Centrilobular emphysema 06/08/2015 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 10/07/2014 SARAHI on CPAP 09/16/2013 Benign hypertension with CKD (chronic kidney disease) stage III 05/01/2010 Gastroesophageal reflux disease without esophagi tis Resolved Problems Problem Noted Date Diagnosed Date Resolved Date Combined form of senile cataract of both eyes 06/01/20 19 07/13/2019 Rheumatoid arthritis with po sitive rheumatoid factor 07/24/2015 08/05/2019 Renal Insufficiency 04/14/2008 05/01/20 10 Asthma 06/08/2015 HTN (hypertension) 0 Overview (08/28/2010): Updating IMO/ICD9 Code and Description Osteoporosis 04/24/2009 Impaired fasting glucose Immunizations Immunization Administration Dates Next Due (ADACEL/BOOSTRIX)(10 YR UP) TDAP VACCINE, 0.5ML, IM 06/25/2016 (PNEUMOVAX 23)(50 YRS UP) PN EUMOCOCCAL POLYSACCHARIDE (PPV23) 0.5 ML, IM 08/04/2001 (PREVNAR 13)(6 WKS UP) PNEUM OCOCCAL CONJUGATE (PCV13) 0.5 ML, IM 06/09/2015 (SHINGRIX)(50 YRS UP) ZOSTER VACCINE RECOMBINANT, 0.5 ML, IM 05/27/2019 INFLUENZA VACCINE HIGH DOSE QUADRIVALENT 65 YR UP PF IM 05/29/2020 Influenza Seasonal Unspecifi ed Formulation IM 06/04/2019,04/28/2014,05/19/2009,06/13,06/07/2007 Influenza Vaccine High Dose 65+ Yrs IM 1 ,06/12/2018,06/25/2017,06/17,06/09/2015 Influenza Vaccine Split 3+ Yrs PF IM 06/2013,05/08/2012,05/07/2011,05/02 PNEUMOVAX (PPSV23) pneumococ zari polysaccharide 23-valent Vaccine 09/24/2002 Zoster Vaccine Live SQ 08/31/2015 Family History Medical History Relation Name Comments Colon Cancer Brother Cancer Father Heart Disease Father Diabetes Mother Heart Disease Mother Hypertension Mother Cancer Sister stomach Cataract Sister Hypertension Sister Hypertension Son Blindness Neg Hx Glaucoma Neg Hx Macular Degen Neg Hx Relation Name Status Comments Brother Father Mother Sister Son Social History Tobacco Use Types Packs/Day Years Used Date Smoking Tobacco: Former Cigarettes 1 2 0 08/04/1957 - 08/04/1959 Smokeless Tobacco: Never Tobacco Cessation:Counseling Given: No Alcohol Use Standard Drinks/Week Comments No 0 (1 standard drink = 0.6 oz pur e alcohol) Comments No Sex and Gender Information Value Date Recorded Sex Assigned at Not on file 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 Gender Identity Not on file Sexual Orientation Not on file Occupation Industry Job Start Date Job End Date Not on file Not on file Not on file Not on file Last Filed Vital Signs Vital Sign Reading Time Taken Comments Blood Pressure 114/76 01/24/2021 8:49 AM CDT Pulse 77 01/24/2021 8:49 AM CDT Temperature 36.9 C (98.4 F) 11/14/2020 8:35 AM CDT Respiratory Rate 22 01/24/2021 8:49 AM CDT Oxygen Saturation 96% 01/24/2021 8:49 AM CDT Inhaled Oxygen Concentration - - Weight 94.3 kg (208 lb) 01/24/2021 8:49 AM CDT Height 165.1 cm (5' 5 ) 01/24/2021 8:49 AM CDT Body Mass Index 34.61 01/24/2021 8:49 AM CDT Plan of Treatment Health Maintenance Due Date Last Done Comments RSV VACCINE (60+ or ) (1 - 1-dose 75+ series) 2011 ZOSTER VACCINE (3 of 3) 07/22/2019 05/27/2019, 08/31 OSTEOPOROSIS SCREENING 06/01/2024 9, 12/25/2011, 12/24/2011, Additional history exists INFLUENZA VACCINE (#1) 2025 0, 06/04/2019, 05/27/2019, Additional history exists DTAP/TDAP/TD VACCINES (2 - T d or Tdap) 06/25/2026 06/25/2016 PNEUMOCOCCAL VACCINE 50+ YEARS Completed 1 08/09/2014, 09/24/2002, 08/04/2001 Medical Devices Implanted Type Area Complex Care Nurse Practitioner Device Identifier Shelf Expiration Date Model / Serial / Lot Lens Io Tecnis 1pc 20.0 [id number] - [id number] Implanted:Qty: 1 on 06/22/2019 by Fawad Andres MD at [facility] Right: Eye [employer] 05/07/2023 [id number] / [id number] / Lens Io Tecnis 1pc 19.5 [id number] - [id number] Implanted:Qty: 1 on 07/06/2019 by Fawad Andres MD at [facility] Left: Eye [employer] 05/17/2023 [id number] / [id number] / Procedures Procedure Name Priority Date/Time Associated Diagnosis Comments XR DEXA BONE DENSITY AXIAL 1 OR MORE SITES Routine 06/01/2019 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 NOF guidelines recommend consideration of FDA-approved medical therapies in patients with FRAX determined 10-year probabilities of hip/major osteoporosis-related fractures equal or greater than 3%/20% respectively. Consider assessing fracture risk using the FRAX analysis tool for guidance of clinical management available online at www.shef.ac.uk/FRAX/. Enter [employer] for Select DXA and the Femoral Neck BMD value. Narrative 06/01/2019 4:01 PM CDT DEXA Evaluation of the Lumbar Spine and Left Proximal Femur Reason for Consultation: Low bone density/osteopenia/long-term corticosteroid therapy. Evaluation of bone mineral density. The following absorptiometry data were obtained. The quality of this examination is acceptable with regards to count density, processed images, data display and lack of important artifacts (including but not limited to motion and attenuation artifacts). Serial examination number three with comparison to prior exams of 06/09/2008-12/24/2011. L1-L3 BMD (g/cm2): 1.118 Adult T-score: -0.4 Adult Z-score: 0.8 Left Femoral Neck BMD (g/cm2): 0.661 Adult T-score: -2.7 Adult Z-score: -1.2 Left Total Hip BMD (g/cm2): 0.693 Adult T-score: -2.6 Adult Z-score: -1.1 Procedure Note Maksim Jaeger MD - 06/01/2019 DEXA Evaluation of the Lumbar Spine and Left Proximal Femur Reason for Consultation: Low bone density/osteopenia/long-term corticosteroid therapy. Evaluation of bone mineral density. The following absorptiometry data were obtained. The quality of this examination is acceptable with regards to count density, processed images, data display and lack of important artifacts (including but not limited to motion and attenuation artifacts). Serial examination number three with comparison to prior exams of 06/09/2008-12/24/2011. L1-L3 BMD (g/cm2): 1.118 Adult T-score: -0.4 Adult Z-score: 0.8 Left Femoral Neck BMD (g/cm2): 0.661 Adult T-score: -2.7 Adult Z-score: -1.2 Left Total Hip BMD (g/cm2): 0.693 Adult T-score: -2.6 Adult Z-score: -1.1 IMPRESSION: Abnormal examination Bone density lies in the osteoporotic range in the left proximal femur having decreased importantly at all locations by comparison lying significantly below the average the patient's age-matched control consistent with accelerated bone demineralization. NOF guidelines recommend consideration of FDA-approved medical therapies in patients with FRAX determined 10-year probabilities of hip/major osteoporosis-related fractures equal or greater than 3%/20% respectively. Consider assessing fracture risk using the FRAX analysis tool for guidance of clinical management available online at www.shef.ac.uk/FRAX/. Enter [employer] for Select DXA and the Femoral Neck BMD value. us Roland Quick MD DIAGNOSTIC IMAGING ORDER ELIANA Final Result from Last 3 Months or Most Recently Relevant to Health Maintenance Insurance MEDICARE PART A AND B [place] [id number] MEDICARE [place] [phone] RX [facility] Medicare Part D Advance Directives For more information, please contact: [phone] * Full Code (Latest Code Status on File) Date Activated Date Inactivated Comments 08/25/2020 6:41 AM 08/25/2020 11:04 AM * Full Code Date Activated Date Inactivated Comments 07/06/2019 10:56 AM 07/06/2019 3:43 PM * Full Code Date Activated Date Inactivated Comments 06/22/2019 1:49 PM 06/22/2019 7:49 PM * Full Code Date Activated Date Inactivated Comments 12/29/2018 5:58 AM 12/29/2018 10:54 AM * Full Code Date Activated Date Inactivated Comments 08/22/2016 12:00 PM 08/22/2016 3:25 PM Care Teams Access Lead Relationship Specialty Start Date End Date Roosevelt Penn MD PCP - General Internal Medicine 06/25/17
--- OUTSIDE RECORDS SUMMARY | 2025-04-21 17:34 | XMS_ITS | Encounter Summary ---
Author Organization [facility] Address [address] [place] [address] Care Team Providers Care Passenger Car Conductor Name Role Phone Roosevelt Penn MD Primary Care Provider Unava ilable Encounter Details Date Type Department Care Team (Latest Contact Info) Description 03/27/2000 Outpatient Historical [facility] Robert Bautista Jr., MD [address] [place] [id number] Herpes zoster without mention of complication (Primary Dx); Unspecified essential hypertension Social History Tobacco Use Types Packs/Day Years Used Date Smoking Tobacco: Never Assessed Comments Unknown Sex and Gender Information Value Date Recorded Sex Assigned at Not on file 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
--- OUTSIDE RECORDS SUMMARY | 2025-04-21 17:34 | XMS_ITS | Encounter Summary ---
Author Organization [facility] Address [address] [place] [address] Care Team Providers Care Stand Up Comedian Name Role Phone Roosevelt Penn MD Primary Care Provider Unava ilable Encounter Details Date Type Department Care Team (Latest Contact Info) Description 07/12/2002 Outpatient Historical [facility]- [place] [address] [facility] [address] [place] [phone] Jimmy Harrell MD NO ADDRESS ON FILE PAROX TACHYCARDIA NOS (CMS/HCC) (Primary Dx); ANGINA PECTORIS NEC/NOS; SYNCOPE AND COLLAPSE Social History Tobacco Use Types Packs/Day Years Used Date Smoking Tobacco: Never Assessed Comments Unknown Sex and Gender Information Value Date Recorded Sex Assigned at Not on file 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
--- OUTSIDE RECORDS SUMMARY | 2025-04-21 17:34 | XMS_ITS | Encounter Summary ---
Author Organization [facility] Address [address] [place] [address] Care Team Providers Care Core Composer Machine Tender Name Role Phone Roosevelt Penn MD Primary Care Provider Unava ilable Encounter Details Date Type Department Care Team (Latest Contact Info) Description 11/15/1998 Outpatient Historical [facility] Robert Bautista Jr., MD [address] [place] [phone] Routine medical exam (Primary Dx); Other abnormal clinical finding Social History Tobacco Use Types Packs/Day Years Used Date Smoking Tobacco: Never Assessed Comments Unknown Sex and Gender Information Value Date Recorded Sex Assigned at Not on file 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
--- OUTSIDE RECORDS SUMMARY | 2025-04-21 17:34 | XMS_ITS | Encounter Summary ---
Author Organization [facility] Address [address] [place] [address] Care Team Providers Care Aboriginal Education Worker Coordinator Name Role Phone Roosevelt Penn MD Primary Care Provider Unava ilable Encounter Details Date Type Department Care Team (Latest Contact Info) Description 12/05/1999 Outpatient Historical [facility] Robert Bautista Jr., MD [address] [place] [phone] Screening for malignant neoplasm of the cervix (Primary Dx); Routine medical exam; Unspecified essential hypertension; Other screening breast examination Social History Tobacco Use Types Packs/Day Years Used Date Smoking Tobacco: Never Assessed Comments Unknown Sex and Gender Information Value Date Recorded Sex Assigned at Not on file 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 Gender Identity Not on file Sexual Orientation Not on file documented as of this encounter Plan of Treatment Not on file documented as of this encounter Visit Diagnoses Diagnosis Screening for malignant neoplasm of the cervix- Primary Routine medical exam Routine general medical examination at a health care facility Unspecified essential hypertension Other screening breast examination documented in this encounter Care Teams Aboriginal Education Worker Coordinator Relationship Specialty Start Date End Date Roosevelt Penn MD PCP - General Internal Medicine 06/25/17 documented as of this encounter
--- OUTSIDE RECORDS SUMMARY | 2025-04-21 17:34 | XMS_ITS | Encounter Summary ---
Author Organization [facility] Address [address] [place] [address] Care Team Providers Care Wood Car Builder Name Role Phone Roosevelt Penn MD Primary Care Provider Unava ilable Encounter Details Date Type Department Care Team (Latest Contact Info) Description 03/13/2000 Outpatient Historical [facility] Nithin Adams MD [address] [place] [phone] Herpes simplex without mention of complication (Primary Dx) Social History Tobacco Use Types Packs/Day Years Used Date Smoking Tobacco: Never Assessed Comments Unknown Sex and Gender Information Value Date Recorded Sex Assigned at Not on file 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
--- OUTSIDE RECORDS SUMMARY | 2025-04-21 17:35 | XMS_ITS | Encounter Summary ---
Author Organization [facility] Address [address] [place] [address] Care Team Providers Care Safe And Vault Installer Name Role Phone Roosevelt Penn MD Primary Care Provider Unava ilable Encounter Details Date Type Department Care Team (Latest Contact Info) Description 12/01/2002 Outpatient Historical [facility] Robert Bautista Jr., MD [address] [place] [phone] PNEUMONIA, ORGANISM NOS (Primary Dx); HYPERTENSION NOS Social History Tobacco Use Types Packs/Day Years Used Date Smoking Tobacco: Never Assessed Comments Unknown Sex and Gender Information Value Date Recorded Sex Assigned at Not on file 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
--- OUTSIDE RECORDS SUMMARY | 2025-04-21 17:35 | XMS_ITS | Encounter Summary ---
Author Organization [facility] Address [address] [place] [address] Care Team Providers Care Industrial Machine Assembler Name Role Phone Roosevelt Penn MD Primary Care Provider Unava ilable Encounter Details Date Type Department Care Team (Latest Contact Info) Description 07/15/2002 Outpatient Historical [facility] [place] [address] [place] [phone] Jimmy Harrell MD NO ADDRESS ON FILE CHEST PAIN NEC (Primary Dx); SHORTNESS OF BREATH; FAMILY HX-ISCHEM HEART DIS Social History Tobacco Use Types Packs/Day Years Used Date Smoking Tobacco: Never Assessed Comments Unknown Sex and Gender Information Value Date Recorded Sex Assigned at Not on file 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
--- OUTSIDE RECORDS SUMMARY | 2025-04-21 17:35 | XMS_ITS | Encounter Summary ---
Author Organization [facility] Address [address] [place] [address] Care Team Providers Care Stores Despatch Hand Name Role Phone Roosevelt Penn MD Primary Care Provider Unava ilable Encounter Details Date Type Department Care Team (Latest Contact Info) Description 04/07/2003 Outpatient Historical [facility] Robert Bautista Jr., MD [address] [place] [id number] HYPERHIDROSIS (Primary Dx); HYPERTENSION NOS; SPASM OF MUSCLE; POSTMENOPAUSAL HORMONAL REPLACMT Social History Tobacco Use Types Packs/Day Years Used Date Smoking Tobacco: Never Assessed Comments Unknown Sex and Gender Information Value Date Recorded Sex Assigned at Not on file Legal Sex Female 5:56 AM CERTIFIED ALCOHOL AND DRUG COUNSELOR Gender Identity Not on file Sexual Orientation Not on file documented as of this encounter Plan of Treatment Not on file documented as of this encounter Visit Diagnoses Diagnosis Generalized hyperhidrosis- Primary Unspecified essential hypertension Spasm of muscle Need for prophylactic hormone replacement therapy (postmenopausal) documented in this encounter Care Teams Stores Despatch Hand Relationship Specialty Start Date End Date Rooseevlt Penn MD PCP - General Internal Medicine 06/25/17 documented as of this encounter
--- OUTSIDE RECORDS SUMMARY | 2025-04-21 17:35 | XMS_ITS | Encounter Summary ---
Author Organization [facility] Address [address] [place] [address] Care Team Providers Care Nurse Emergency Name Role Phone Roosevelt Penn MD Primary Care Provider Unava ilable Encounter Details Date Type Department Care Team (Latest Contact Info) Description 06/07/2002 Outpatient Historical [facility] Robert Bautista Jr., MD [address] [place] [phone] Gynecologic examination (Primary Dx); SCREENING-CARDIOVASC NEC; SCREENING FOR COND NEC Social History Tobacco Use Types Packs/Day Years Used Date Smoking Tobacco: Never Assessed Comments Unknown Sex and Gender Information Value Date Recorded Sex Assigned at Not on file Legal Sex Female 5:56 AM GERMAN TUTOR Gender Identity Not on file Sexual Orientation Not on file documented as of this encounter Plan of Treatment Not on file documented as of this encounter Visit Diagnoses Diagnosis Gynecologic examination- Primary Gynecological examination Screening for other and unspecified cardiovascular conditions Screening for other and unspecified genitourinary condition documented in this encounter Care Teams Nurse Emergency Relationship Specialty Start Date End Date Roosevelt Penn MD PCP - General Internal Medicine 06/25/17 documented as of this encounter
--- OUTSIDE RECORDS SUMMARY | 2025-04-21 17:35 | XMS_ITS | Encounter Summary ---
Author Organization [facility] Address [address] [place] [address] Care Team Providers Care Railroad Car Loader Name Role Phone Roosevelt Penn MD Primary Care Provider Unava ilable Encounter Details Date Type Department Care Team (Latest Contact Info) Description 04/12/2003 Outpatient Historical [facility] Robert Bautista Jr., MD [address] [place] [address] HYPERHIDROSIS (Primary Dx) Social History Tobacco Use Types Packs/Day Years Used Date Smoking Tobacco: Never Assessed Comments Unknown Sex and Gender Information Value Date Recorded Sex Assigned at Not on file Legal Sex Female 5:56 AM DATASTAGE CONSULTANT Gender Identity Not on file Sexual Orientation Not on file documented as of this encounter Plan of Treatment Not on file documented as of this encounter Visit Diagnoses Diagnosis Generalized hyperhidrosis- Primary documented in this encounter Care Teams Railroad Car Loader Relationship Specialty Start Date End Date Roosevelt Penn MD PCP - General Internal Medicine 06/25/17 documented as of this encounter
--- OUTSIDE RECORDS SUMMARY | 2025-04-21 17:35 | XMS_ITS | Encounter Summary ---
Author Organization [facility] Address [address] [place] [address] Care Team Providers Care Industrial Staff Nurse Name Role Phone Roosevelt Penn MD Primary Care Provider Unava ilable Encounter Details Date Type Department Care Team (Latest Contact Info) Description 07/15/2002 Outpatient [facility] [address] [place] [address] Zhou Healy MD [address] [place] [address] PRECORDIAL PAIN (Primary Dx) Social History Tobacco Use Types Packs/Day Years Used Date Smoking Tobacco: Never Assessed Comments Unknown Sex and Gender Information Value Date Recorded Sex Assigned at Not on file Legal Sex Female 5:56 AM TECHNICAL SYSTEMS ARCHITECT Gender Identity Not on file Sexual Orientation Not on file documented as of this encounter Plan of Treatment Not on file documented as of this encounter Visit Diagnoses Diagnosis Precordial pain- Primary documented in this encounter Care Teams Industrial Staff Nurse Relationship Specialty Start Date End Date Roosevelt Penn MD PCP - General Internal Medicine 06/25/17 documented as of this encounter
--- OUTSIDE RECORDS SUMMARY | 2025-04-21 17:35 | XMS_ITS | Encounter Summary ---
Author Organization [facility] Address [address] [place] [address] Care Team Providers Care Wash Driller Helper Name Role Phone Roosevelt Penn MD Primary Care Provider Unava ilable Encounter Details Date Type Department Care Team (Latest Contact Info) Description 06/09/2002 Outpatient Historical [facility] Robert Bautista Jr., MD [address] [place] [phone] SCREENING-ENDOC/NUT/ MET/IMMUN OTHER (Primary Dx); SCREENING-LIPOID DISORDERS; SCREENING-THYROID DISORDER Social History Tobacco Use Types Packs/Day Years Used Date Smoking Tobacco: Never Assessed Comments Unknown Sex and Gender Information Value Date Recorded Sex Assigned at Not on file Legal Sex Female 5:56 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
--- OUTSIDE RECORDS SUMMARY | 2025-04-21 17:35 | XMS_ITS | Encounter Summary ---
Author Organization [facility] Address [address] [place] [address] Care Team Providers Care Platform Loader Name Role Phone Roosevelt Penn MD Primary Care Provider Unava ilable Encounter Details Date Type Department Care Team (Latest Contact Info) Description 11/03/2002 Outpatient Historical [facility] Robert Bautista Jr., MD [address] [place] [phone] HYPERTENSION NOS (Primary Dx); OSTEOARTHROS NOS-UNSPEC; OBESITY NOS Social History Tobacco Use Types Packs/Day Years Used Date Smoking Tobacco: Never Assessed Comments Unknown Sex and Gender Information Value Date Recorded Sex Assigned at Not on file Legal Sex Female 5:56 AM DISPATCHER TOW TRUCK Gender Identity Not on file Sexual Orientation Not on file documented as of this encounter Plan of Treatment Not on file documented as of this encounter Visit Diagnoses Diagnosis Unspecified essential hypertension- Primary Osteoarthrosis, unspecified whether generalized or localized, unspecified site Obesity, unspecified documented in this encounter Care Teams Platform Loader Relationship Specialty Start Date End Date Roosevelt Penn MD PCP - General Internal Medicine 06/25/17 documented as of this encounter
--- OUTSIDE RECORDS SUMMARY | 2025-04-21 17:35 | XMS_ITS | Encounter Summary ---
Author Organization [facility] Address [address] [place] [address] Care Team Providers Care Pipe Fitter Helper Name Role Phone Roosevlet Penn MD Primary Care Provider Unava ilable Encounter Details Date Type Department Care Team (Latest Contact Info) Description 06/28/2002 Outpatient Historical [facility] Robert Bautista Jr., MD [address] [place] [phone] CARDIAC DYSRHYTHMIAS NEC (Primary Dx); HYPERLIPIDEMIA NEC/NOS Social History Tobacco Use Types Packs/Day Years Used Date Smoking Tobacco: Never Assessed Comments Unknown Sex and Gender Information Value Date Recorded Sex Assigned at Not on file Legal Sex Female 5:56 AM EMERGENCY MANAGEMENT SPECIALIST Gender Identity Not on file Sexual Orientation Not on file documented as of this encounter Plan of Treatment Not on file documented as of this encounter Visit Diagnoses Diagnosis Other specified cardiac dysrhythmias(427.89)- Primary Other specified cardiac dysrhythmias Other and unspecified hyperlipidemia documented in this encounter Care Teams Pipe Fitter Helper Relationship Specialty Start Date End Date Roosevelt Penn MD PCP - General Internal Medicine 06/25/17 documented as of this encounter
--- OUTSIDE RECORDS SUMMARY | 2025-04-21 17:35 | XMS_ITS | Encounter Summary ---
Author Organization [facility] Address [address] [place] [address] Care Team Providers Care Consulting Analyst Name Role Phone Roosevelt Penn MD Primary Care Provider Unava ilable Encounter Details Date Type Department Care Team (Latest Contact Info) Description 01/26/2003 Outpatient Historical [facility] John Severino MD [address] [place] [address] OTITIS MEDIA NOS (Primary Dx) Social History Tobacco Use Types Packs/Day Years Used Date Smoking Tobacco: Never Assessed Comments Unknown Sex and Gender Information Value Date Recorded Sex Assigned at Not on file Legal Sex Female 5:56 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
--- OUTSIDE RECORDS SUMMARY | 2025-04-21 17:35 | XMS_ITS | Encounter Summary ---
Author Organization [facility] Address [address] [place] [address] Care Team Providers Care Military Source Operations Officer Name Role Phone Roosevelt Penn MD Primary Care Provider Unava ilable Encounter Details Date Type Department Care Team (Latest Contact Info) Description 01/28/2001 Outpatient Historical [facility] Robert Bautista Jr., MD [address] [place] [phone] Osteoporosis, unspecified (Primary Dx); Personal history of other disorder of urinary system Social History Tobacco Use Types Packs/Day Years Used Date Smoking Tobacco: Never Assessed Comments Unknown Sex and Gender Information Value Date Recorded Sex Assigned at Not on file Legal Sex Female 5:56 AM ROLLER ENGRAVER Gender Identity Not on file Sexual Orientation Not on file documented as of this encounter Plan of Treatment Not on file documented as of this encounter Visit Diagnoses Diagnosis Osteoporosis, unspecified- Primary Personal history of other disorder of urinary system documented in this encounter Care Teams Military Source Operations Officer Relationship Specialty Start Date End Date Roosevelt Penn MD PCP - General Internal Medicine 06/25/17 documented as of this encounter
--- OUTSIDE RECORDS SUMMARY | 2025-04-21 17:35 | XMS_ITS | Encounter Summary ---
Author Organization [facility] Address [address] [place] [address] Care Team Providers Care Customer Success Advocate Name Role Phone Matti Leon MD Primary Care Provider [phone] Reason for Visit * Reason Comments Med Change Request Encounter Details Date Type Department Care Team (Late st Contact Info) Description 04/19/2025 Refill [facility] Pulmonology [address] [place] [address] Danilele Cool MD [address] [place] [address] Social History Tobacco Use Types Packs/Day Years [...] on file Legal Sex Female 12:12 AM HOUSE MOVING SUPERVISOR Gender Identity Not on file Sexual Orientation Not on file documented as of this encounter Plan of Treatment Upcoming Encounters Date Type Department Care Team (Late st Contact Info) Description 04/27/2025 11:00 AM CDT Office Visit [facility] [address] [facility] [address] [place] [address] Leticia Martinez, WAREHOUSE CHECKER [address] [facility] [address] [place] [address] 07/12/2025 11:00 AM HOUSE MOVING SUPERVISOR Office Visit [facility] Infectious Disease-[place] [address] [place] [address] Rosalina Zhou MD [address] [facility] [address] [place] [address] 08/02/2025 1:40 PM HOUSE MOVING SUPERVISOR Office Visit [facility] Rheumatology- [place] [address] [place] [address] Roland Quick MD [address] [facility] [address] [place] [address] 12/06/2025 11:00 AM CDT Office Visit [facility] Internal Medicine-[place] [address] [place] [address] Matti Leon MD [address] [place] [address] 12/20/2025 10:15 AM CDT Office Visit [facility] Child Psychometrist Optometry [facility] [address] [place] [address] 12/20/2025 10:30 AM CDT Office Visit [facility] Child Psychometrist Optometry [address] [place] [address] DaughertyMarita, OD [address] [place] [address] 03/27/2026 2:15 PM CDT Office Visit [facility] Sleep Center [address] [facility] [address] [place] [address] Lisa Barros, [facility] [address] [facility] [address] [place] [address] documented as of this encounter Goals Goal Patient Goal Type Associated Problems Recent Progress Patient-Stated? Author Heart Failure Goal Care Plan Heart Failure Problem No Haleigh Lyles Duarte documented as of this encounter Visit Diagnoses Not on filedocumented in this encounter Additional Health Concerns Active Problems Noted Date Diagnosed Date Heart Failure Problem 12/15/2024 documented as of this encounter Care Teams Customer Success Advocate Relationship Specialty Start Date End Date Matti Leon MD [address] [place] [address] PCP - General Internal Medicine 07/08/23 documented as of this encounter
--- OUTSIDE RECORDS SUMMARY | 2025-04-21 17:35 | XMS_ITS | Encounter Summary ---
Author Organization [facility] Address [address] [place] [address] Care Team Providers Care Hair Cutter Name Role Phone Roosevelt Penn MD Primary Care Provider Unava ilable Encounter Details Date Type Department Care Team (Latest Contact Info) Description 12/23/2005 Outpatient Historical [facility] Imaging Services-[place] [address] [place] [address] Ger Taylor MD [address] [place] [address] Other Diseases of Lung, not Elsewhere Classified (Primary Dx) Social History Tobacco Use Types Packs/Day Years Used Date Smoking Tobacco: Never Assessed Comments Unknown Sex and Gender Information Value Date Recorded Sex Assigned at Not on file Legal Sex Female 5:56 AM FAMILY LAW ATTORNEY Gender Identity Not on file Sexual Orientation Not on file documented as of this encounter Plan of Treatment Not on file documented as of this encounter Visit Diagnoses Diagnosis Other diseases of lung, not elsewhere classified- Primary documented in this encounter Care Teams Hair Cutter Relationship Specialty Start Date End Date Roosevelt Penn MD PCP - General Internal Medicine 06/25/17 documented as of this encounter
--- OUTSIDE RECORDS SUMMARY | 2025-04-21 17:35 | XMS_ITS | Encounter Summary ---
Author Organization [facility] Address [address] [place] [address] Care Team Providers Care Oil Field Worker Name Role Phone Roosevelt Penn MD Primary Care Provider Unava ilable Encounter Details Date Type Department Care Team (Latest Contact Info) Description 10/25/2002 Outpatient Historical [facility] John Severino MD [address] [place] [address] ACUTE BRONCHITIS (Primary Dx) Social History Tobacco Use Types Packs/Day Years Used Date Smoking Tobacco: Never Assessed Comments Unknown Sex and Gender Information Value Date Recorded Sex Assigned at Not on file Legal Sex Female 5:56 AM REPORT CLERK Gender Identity Not on file Sexual Orientation Not on file documented as of this encounter Plan of Treatment Not on file documented as of this encounter Visit Diagnoses Diagnosis Acute bronchitis- Primary documented in this encounter Care Teams Oil Field Worker Relationship Specialty Start Date End Date Roosevelt Penn MD PCP - General Internal Medicine 06/25/17 documented as of this encounter
--- OUTSIDE RECORDS SUMMARY | 2025-04-21 17:35 | XMS_ITS | Encounter Summary ---
Author Organization [facility] Address [address] [place] [address] Care Team Providers Care Photographers' Model Name Role Phone Roosevelt Penn MD Primary Care Provider Unava ilable Encounter Details Date Type Department Care Team (Latest Contact Info) Description 12/26/2005 Outpatient Historical [facility] Internal Medicine-[place] [id number] [facility] [address] [place] [address] Ger Taylor MD [address] [place] [address] Other Diseases of Lung, not Elsewhere Classified (Primary Dx) Social History Tobacco Use Types Packs/Day Years Used Date Smoking Tobacco: Never Assessed Comments Unknown Sex and Gender Information Value Date Recorded Sex Assigned at Not on file Legal Sex Female 5:56 AM NAPRAPATH Gender Identity Not on file Sexual Orientation Not on file documented as of this encounter Plan of Treatment Not on file documented as of this encounter Visit Diagnoses Diagnosis Other diseases of lung, not elsewhere classified- Primary documented in this encounter Care Teams Photographers' Model Relationship Specialty Start Date End Date Roosevelt Penn MD PCP - General Internal Medicine 06/25/17 documented as of this encounter
--- OUTSIDE RECORDS SUMMARY | 2025-04-21 17:35 | XMS_ITS | Encounter Summary ---
Author Organization [facility] Address [address] [place] [address] Care Team Providers Care Stem Maker Name Role Phone Roosevelt Penn MD Primary Care Provider Unava ilable Encounter Details Date Type Department Care Team (Latest Contact Info) Description 05/01/2001 Outpatient Historical [facility] Robert Bautista Jr., MD [address] [place] [phone] Symptomatic menopausal or female climacteric states (Primary Dx); Breast screening, unspecified; Other B-complex deficiencies Social History Tobacco Use Types Packs/Day Years Used Date Smoking Tobacco: Never Assessed Comments Unknown Sex and Gender Information Value Date Recorded Sex Assigned at Not on file Legal Sex Female 5:56 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
--- OUTSIDE RECORDS SUMMARY | 2025-04-21 17:35 | XMS_ITS | Encounter Summary ---
Author Organization [facility] Address [address] [place] [address] Care Team Providers Care Molding Machine Operator Name Role Phone Roosevelt Penn MD Primary Care Provider Unava ilable Encounter Details Date Type Department Care Team (Latest Contact Info) Description 10/26/2002 Outpatient Historical [facility] John Severino MD [address] [place] [address] Pure hypercholesterolem (Primary Dx); AFTERCARE [facility] USE MEDICATN Social History Tobacco Use Types Packs/Day Years Used Date Smoking Tobacco: Never Assessed Comments Unknown Sex and Gender Information Value Date Recorded Sex Assigned at Not on file Legal Sex Female 5:56 AM PROCUREMENT BUYER Gender Identity Not on file Sexual Orientation Not on file documented as of this encounter Plan of Treatment Not on file documented as of this encounter Visit Diagnoses Diagnosis Pure hypercholesterolem- Primary Pure hypercholesterolemia Encounter for long-term (current) use of other medications documented in this encounter Care Teams Molding Machine Operator Relationship Specialty Start Date End Date Roosevelt Penn MD PCP - General Internal Medicine 06/25/17 documented as of this encounter
--- OUTSIDE RECORDS SUMMARY | 2025-04-21 17:35 | XMS_ITS | Encounter Summary ---
Author Organization [facility] Address [address] [place] [address] Care Team Providers Care Plastics Fabrication Supervisor Name Role Phone Roosevelt Penn MD Primary Care Provider Unava ilable Encounter Details Date Type Department Care Team (Latest Contact Info) Description 12/11/2005 Outpatient Historical [facility] Internal Medicine-[address] [place] [address] Ger Taylor MD [address] [place] [address] Unspecified Asthma (Primary Dx); Unspecified Essential Hypertension; Reflux Esophagitis; Osteoarth NOS-Unspec Social History Tobacco Use Types Packs/Day Years Used Date Smoking Tobacco: Never Assessed Comments Unknown Sex and Gender Information Value Date Recorded Sex Assigned at Not on file Legal Sex Female 5:56 AM STEWARDESSES TEACHER Gender Identity Not on file Sexual Orientation Not on file documented as of this encounter Plan of Treatment Not on file documented as of this encounter Visit Diagnoses Diagnosis Unspecified asthma(493.90)- Primary Unspecified asthma Unspecified essential hypertension Reflux esophagitis Osteoarthrosis, unspecified whether generalized or localized, unspecified site documented in this encounter Care Teams Plastics Fabrication Supervisor Relationship Specialty Start Date End Date Roosevelt Penn MD PCP - General Internal Medicine 06/25/17 documented as of this encounter
--- OUTSIDE RECORDS SUMMARY | 2025-04-21 17:35 | XMS_ITS | Encounter Summary ---
Author Organization [facility] Address [address] [place] [address] Care Team Providers Care Tunnel Kiln Repairer Name Role Phone Roosevelt Penn MD Primary Care Provider Unava ilable Encounter Details Date Type Department Care Team (Latest Contact Info) Description 01/14/2002 Outpatient Historical [facility] Robert Bautista Jr., MD [address] [place] [phone] OSTEOARTHROS NOS-UNSPEC (Primary Dx) Social History Tobacco Use Types Packs/Day Years Used Date Smoking Tobacco: Never Assessed Comments Unknown Sex and Gender Information Value Date Recorded Sex Assigned at Not on file Legal Sex Female 5:56 AM CLINICAL RESEARCH MANAGEMENT ASSOCIATE Gender Identity Not on file Sexual Orientation Not on file documented as of this encounter Plan of Treatment Not on file documented as of this encounter Visit Diagnoses Diagnosis Osteoarthrosis, unspecified whether generalized or localized, unspecified site- Primary documented in this encounter Care Teams Tunnel Kiln Repairer Relationship Specialty Start Date End Date Roosevelt Penn MD PCP - General Internal Medicine 06/25/17 documented as of this encounter
--- OUTSIDE RECORDS SUMMARY | 2025-04-21 17:35 | XMS_ITS | Encounter Summary ---
Author Organization [facility] Address [address] [place] [address] Care Team Providers Care Valve Lapper Name Role Phone Roosevelt Penn MD Primary Care Provider Unava ilable Encounter Details Date Type Department Care Team (Late st Contact Info) Description 11/03/2002 Outpatient Historical [facility] Robert Bautista Jr., MD [address] [place] [address] OBESITY NOS (Primary Dx) Social History Tobacco Use Types Packs/Day Years Used Date Smoking Tobacco: Never Assessed Comments Unknown Sex and Gender Information Value Date Recorded Sex Assigned at Not on file Legal Sex Female 5:56 AM DESIGN AGENT Gender Identity Not on file Sexual Orientation Not on file documented as of this encounter Plan of Treatment Not on file documented as of this encounter Visit Diagnoses Diagnosis Obesity, unspecified- Primary documented in this encounter Care Teams Valve Lapper Relationship Specialty Start Date End Date Roosevelt Penn MD PCP - General Internal Medicine 06/25/17 documented as of this encounter
--- OUTSIDE RECORDS SUMMARY | 2025-04-21 17:35 | XMS_ITS | Encounter Summary ---
Author Organization [facility] Address [address] [place] [address] Care Team Providers Care Bottling Equipment Sales Representative Name Role Phone Roosevelt Penn MD Primary Care Provider Unava ilable Encounter Details Date Type Department Care Team (Latest Contact Info) Description 12/06/2002 Outpatient Historical [facility] Robert Bautista Jr., MD [address] [place] [id number] PNEUMONIA, ORGANISM NOS (Primary Dx) Social History Tobacco Use Types Packs/Day Years Used Date Smoking Tobacco: Never Assessed Comments Unknown Sex and Gender Information Value Date Recorded Sex Assigned at Not on file 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
--- OUTSIDE RECORDS SUMMARY | 2025-04-21 17:35 | XMS_ITS | Encounter Summary ---
Author Organization [facility] Address [address] [place] [address] Care Team Providers Care Project Associate Name Role Phone Roosevelt Penn MD Primary Care Provider Unava ilable Encounter Details Date Type Department Care Team (Latest Contact Info) Description 07/01/2001 Outpatient Historical [facility] Nithin Adams MD [address] [place] [id number] BRONCHITIS NOS (Primary Dx); ACUTE SINUSITIS NOS Social History Tobacco Use Types Packs/Day Years Used Date Smoking Tobacco: Never Assessed Comments Unknown Sex and Gender Information Value Date Recorded Sex Assigned at Not on file 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
--- OUTSIDE RECORDS SUMMARY | 2025-04-21 17:35 | XMS_ITS | Encounter Summary ---
Author Organization [facility] Address [address] [place] [address] Care Team Providers Care Anvil Worker Name Role Phone Roosevelt Penn MD Primary Care Provider Unava ilable Encounter Details Date Type Department Care Team (Latest Contact Info) Description 12/23/[address] 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 INDICATION: 70-year-old female with shortness of breath and coughing. TECHNIQUE: 5 mm Volumetric acquisition with 125 ml intravenous Optiray 320. COMPARISON: None. FINDINGS: No pathologic axillary, mediastinal, or hilar lymphadenopathy by CT size criteria is identified. Cardiac and pulmonary vasculature is unremarkable. Mild biapical pleural thickening/scar formation, left greater than right is identified. A 1.2 cm cavitary lesion of the posterior aspect of the apical posterior segment of the left upper lobe is seen. An adjacent 1.0 cm more ill-defined nodule of the apical posterior segment of the left upper lobe on image 14 is present. A 3 mm indeterminate nodule of the right upper lobe with two adjacent smaller satellite nodules on image 17 is present. A 3 mm indeterminate nodule of the right upper lobe on image 19 is present. A 1.6 cm peripheral nodule of the superior segment of the right lower lobe on image 26 is seen with two adjacent smaller subpleural nodules. A 0.9 cm nodule of the superior segment of the left lower lobe is identified. A more inferior 1.3 cm peripheral nodule of the left lower lobe on image 28 is seen. No effusion, pneumothorax, or additional abnormal lung parenchymal nodularity is seen. The visualized upper abdominal viscera demonstrates the gallbladder to be surgically absent. A 1.4 cm nodule of the posterior limb of the right adrenal gland is identified with relative enhancement washout characteristics consistent with adrenal adenoma. Colonic interposition is present. IMPRESSION: 1. Multiple bilateral indeterminate pulmonary nodules with cavitation of a single nodule within the left upper lobe as described above. Differential diagnosis would include Stella's granulomatosis versus septic emboli versus additional nonspecific inflammatory/infectious etiologies versus less likely hematogenous pulmonary metastasis with necrosis of one metastasis. Clinical correlation and follow up recommended. 2. Status post cholecystectomy. 3. Right adrenal adenoma. gb Dictated By: Lenin Diaz M.D. Electronically Signed By: Lenin Diaz M.D. Date Signed: 12/24/05 [facility] Procedure Note 06/23/2009 CT CHEST WITH CONTRAST DATE: 12/23/2005. INDICATION: 70-year-old female with shortness of breath and coughing. TECHNIQUE: 5 mm Volumetric acquisition with 125 ml intravenous Optiray 320. COMPARISON: None. FINDINGS: No pathologic axillary, mediastinal, or hilar lymphadenopathy by CT sizecriteria is identified. Cardiac and pulmonary vasculature is unremarkable. Mild biapical pleuralthickening/scar formation, left greater than right is identified. A 1.2 cm cavitary lesion of theposterior aspect of the apical posterior segment of the left upper lobe is seen. An adjacent 1.0 cm moreill- defined nodule of the apical posterior segment of the left upper lobe on image 14 is present. A3 mm indeterminate nodule of the right upper lobe with two adjacent smaller satellite nodules on image17 is present. A 3 mm indeterminate nodule of the right upper lobe on image 19 is present. A1.6 cm peripheral nodule of the superior segment of the right lower lobe on image 26 is seen with twoadjacent smaller subpleural nodules. A 0.9 cm nodule of the superior segment of the left lower lobeis identified. A more inferior 1.3 cm peripheral nodule of the left lower lobe on image 28 is seen. Noeffusion, pneumothorax, or additional abnormal lung parenchymal nodularity is seen. The visualizedupper abdominal viscera demonstrates the gallbladder to be surgically absent. A 1.4 cm nodule ofthe posterior limb of the right adrenal gland is identified with relative enhancement washoutcharacteristics consistent with adrenal adenoma. Colonic interposition is present. IMPRESSION: 1. Multiple bilateral indeterminate pulmonary nodules with cavitation ofa single nodule within the left upper lobe as described above. Differential diagnosis would includeWegener's granulomatosis versus septic emboli versus additional nonspecific inflammatory/infectiousetiologies versus less likely hematogenous pulmonary metastasis with necrosis of one metastasis.Clinical correlation and follow up recommended. 2. Status post cholecystectomy. 3. Right adrenal adenoma. gb Dictated By: Lenin Diaz M.D. Electronically Signed By: Lenin Diaz M.D. Date Signed: 12/24/05 [facility] Ger Taylor MD CT ORDERABLES Final Result documented in this encounter Visit Diagnoses Diagnosis Screening examination for pulmonary tuberculosis- Primary documented in this encounter Care Teams Anvil Worker Relationship Specialty Start Date End Date Roosevelt Penn MD PCP - General Internal Medicine 06/25/17 documented as of this encounter
--- OUTSIDE RECORDS SUMMARY | 2025-04-21 17:35 | XMS_ITS | Encounter Summary ---
Author Organization [facility] Address [address] [place] [address] Care Team Providers Care Information Analyst Name Role Phone Roosevelt Penn MD Primary Care Provider Unava ilable Encounter Details Date Type Department Care Team (Late st Contact Info) Description 06/09/2002 Outpatient Historical [facility] Robert Bautista Jr., MD [address] [place] [address] ROUTINE MEDICAL EXAM (Primary Dx) Social History Tobacco Use Types Packs/Day Years Used Date Smoking Tobacco: Never Assessed Comments Unknown Sex and Gender Information Value Date Recorded Sex Assigned at Not on file 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
--- OUTSIDE RECORDS SUMMARY | 2025-04-21 17:35 | XMS_ITS | Encounter Summary ---
Author Organization [facility] Address [address] [place] [address] Care Team Providers Care Multi Operation Machine Operator Name Role Phone Roosevelt Penn MD Primary Care Provider Unava ilable Encounter Details Date Type Department Care Team (Latest Contact Info) Description 12/23/2005 Outpatient Historical [facility] [place] [id number] [facility] [address] [place] [address] Ger Taylor MD [address] [place] [address] Other Dyspnea and Respiratory Abnormality (Primary Dx) Social History Tobacco Use Types Packs/Day Years Used Date Smoking Tobacco: Never Assessed Comments Unknown Sex and Gender Information Value Date Recorded Sex Assigned at Not on file 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
--- OUTSIDE RECORDS SUMMARY | 2025-04-21 17:35 | XMS_ITS | Encounter Summary ---
Author Organization [facility] Address [address] [place] [address] Care Team Providers Care Infectious Disease Physician Name Role Phone Roosevelt Penn MD Primary Care Provider Unava ilable Encounter Details Date Type Department Care Team (Latest Contact Info) Description 10/26/2002 Outpatient Historical [facility] John Severino MD [address] [place] [address] PURE HYPERCHOLESTEROLEM (Primary Dx) Social History Tobacco Use Types Packs/Day Years Used Date Smoking Tobacco: Never Assessed Comments Unknown Sex and Gender Information Value Date Recorded Sex Assigned at Not on file 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
--- OUTSIDE RECORDS SUMMARY | 2025-04-21 17:35 | XMS_ITS | Encounter Summary ---
Author Organization [facility] Address [address] 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
--- OUTSIDE RECORDS SUMMARY | 2025-04-21 17:35 | XMS_ITS | Encounter Summary ---
Author Organization [facility] Address [address] [place] [address] Care Team Providers Care Director Of Preclinical Research Name Role Phone Roosevelt Penn MD Primary Care Provider Unava ilable Encounter Details Date Type Department Care Team (Latest Contact Info) Description 12/03/2002 Outpatient Historical [facility] Robert Bautista Jr., MD [address] [place] [id number] PNEUMONIA, ORGANISM NOS (Primary Dx) Social History Tobacco Use Types Packs/Day Years Used Date Smoking Tobacco: Never Assessed Comments Unknown Sex and Gender Information Value Date Recorded Sex Assigned at Not on file 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
--- OUTSIDE RECORDS SUMMARY | 2025-04-21 17:35 | XMS_ITS | Clinical Summary ---
Author Organization [facility] de Address [address] [place] [address] Phone Care Team Providers Care Agricultural Science Professor Name Role Phone Matti Leon MD Primary Care Provider [phone] Allergies No known active allergies Medications cholecalciferol , vitamin D3, (VITAMIN D3 ORAL) Take 1 Tablet by mouth daily. Active sodium chloride-aloe vera (AYR) Gel by See Admin Instructions route 2 times daily. 022 Active diclofenac sodium (VOLTAREN) 1 % gel 4 grams applied topically Q6H prn pain Active vit C,Z-Ov-qgwmk-trace tein-zeaxan (PreserVision AREDS-2) 250-90-40-1 mg Tablet, Chewable 2 times daily. Activ e polyethylene glycol (MIRALAX) 17 gram Powder in Packet Take 1 Packet (17 Grams) by mouth 2 times daily. 023 Active glucosamine HCl 750 mg Tablet 1 tablet Orally twice daily Active aspirin (ECOTRIN EC) 81 mg Tablet, Delayed Release (E.C.) take 1 tablet by mouth every day 90 Tablet 024 Active ondansetron (ZOFRAN ODT) 4 mg Tablet, Rapid DissolveIndicat ions:Nausea and vomiting, unspecified vomiting type DISSOLVE 1 TABLET ON TOP OF TONGUE, THEN SWALLOW WITH SALIVA. 90 Tablet 3 024 Active dapagliflozin propanediol (Farxiga) 10 mg Tablet Take 1 Tablet (10 mg) by mouth daily in the morning. 30 Tablet 5 Active fluticasone propionate (FLONASE) 50 mcg/spray [place], Suspension nasal inhaler Administer 1 [place] in each nostril 1 time daily as needed for Other (See Comment) (at hs prior to applying CPAP). 16 Gram Active nitroglycerin (NITROSTAT) 0.4 mg Tablet, Sublingual Place 1 Tablet (0.4 mg) under tongue every 5 minutes as needed for Chest Pain. If still having chest pain after 2 doses, take third tablet and call 911 25 Tablet 2 Active Additional Information Patient not taking.Reported on 02/18/2025 HYDROcodone-julián taminophen (NORCO) 7.5-325 mg Tablet Take 1 Tablet by mouth every 4 hours as needed for Pain. Active carvediloL (COREG) 3.125 mg tablet TAKE 1 TABLET BY MOUTH EVERY 12 HOURS 200 Tablet 3 Active ipratropium-alb uteroL (DUONEB) 0.5 mg-3 mg(2.5 mg base)/3 mL Solution for NebulizationInd ications:Chroni c cough Take 3 mL by inhalation every 6 hours as needed for Shortness of Breath. Dispense 1 box 1 Each 1 Active albuterol sulfate HFA 90 mcg/actuation aerosol inhalerIndicati ons:Centrilobul ar emphysema (CMS/HCC),Moder ate persistent asthma without complication Take 2 Puffs by inhalation every 4 hours as needed for Wheezing. 6.7 Gram 3 Active promethazine (PHENERGAN) 25 mg tablet Take 1 Tablet (25 mg) by mouth every 6 hours as needed for Nausea/Emesis. 20 Tablet Active sennosides-docu sate sodium (SENNA-S) 8.6-50 mg tablet Take 1 Tablet by mouth 2 times daily as needed for Constipation. 60 Tablet Active vit A,C and H-juskgs-ylrsat ls (Ocuvite with Lutein) 300 mcg-200 mg-27 mg-2 mg Tablet Take 1 Tablet by mouth daily. 100 Tablet Active rosuvastatin (CRESTOR) 40 mg tabletIndicatio ns:Atherosclero sis of [place] coronary artery of [place] heart with stable angina pectoris Take 1 Tablet (40 mg) by mouth daily at bedtime. 90 Tablet 3 024 Active apixaban (Eliquis) 2.5 mg tablet TAKE 1 TABLET BY MOUTH 2 TIMES DAILY 60 Tablet 11 024 Active isosorbide mononitrate (IMDUR) 30 mg Extended Release 24 hour tablet Take 1 Tablet (30 mg) by mouth daily in the morning. 30 Tablet 11 025 Active omeprazole (PriLOSEC) 40 mg Capsule, Delayed Release(E.C.)In dications:Gastr oesophageal reflux disease without esophagitis TAKE 1 CAPSULE BY MOUTH EVERY DAY 100 Capsule 3 025 Active levothyroxine 50 mcg tabletIndicatio ns:Hypothyroidi sm, unspecified type TAKE 1 TABLET BY MOUTH EVERY DAY IN THE MORNING 100 Tablet 3 025 Active amiodarone (CORDARONE) 200 mg tablet TAKE 1 TABLET BY MOUTH EVERY DAY 90 Tablet 3 025 Active potassium CHLORIDE (KLOR-CON M10) 10 mEq Extended Release tablet TAKE 1 TABLET BY MOUTH EVERY DAY 100 Tablet 3 025 Active oxygen home deliveryIndicat ions:Hypertensi ve heart and kidney disease with chronic systolic congestive heart failure and stage 4 chronic kidney disease (CMS/HCC),Acute combined systolic and diastolic heart failure (CMS/HCC),Produ ctive cough Home Oxygen Concentrator yes at 1 L/M Rest, 3 L/M Activity, CPAP L/M Sleep, Delivery Device: Nasal Cannula Portability: yes, 1 L/M Rest, 3 L/M Activity, May provide device best for patient needs(E system,home fill, conserving device) Length of Need: 99 months 1 Each 025 Active rOPINIRole (REQUIP) 0.5 mg tablet TAKE 1 TABLET BY MOUTH EVERYDAY AT BEDTIME 90 Tablet 025 Active folic acid (FOLVITE) 1 mg tablet TAKE 1 TABLET BY MOUTH EVERY DAY 90 Tablet 1 025 Active cpap medical deviceIndicatio ns:Obstructive sleep apnea CPAP (E0601) at 8 cm/H2O with heated humidifier (E0562), MASK OF CHOICE, headgear(A7035), cushions (A7031) 1/1 month, (A7032) (A7033) 2 pair/1 month. Heated tubing A4604 1/3mo,water chamber A7046 1/6mo,filter disp A7038 2/mo,Reusable filter A7039 1/6mo, Chin strap A7036 a/6mo BHAKTI 99mo DX: SARAHI (G47.33) 1 Each 025 Active predniSONE (DELTASONE) 5 mg tablet Take 1 Tablet (5 mg) by mouth daily. 90 Tablet 1 025 Active ipratropium bromide (ATROVENT) 0.02 % Solution Take 2.5 mL (0.5 mg) by inhalation every 6 hours as needed for Shortness of Breath. 1 mL 5 025 Active budesonide (PULMICORT RESPULE) 0.25 mg/2 mL Suspension for Nebulization Take 2 mL (0.25 mg) by inhalation 2 times daily. 60 Ampule 3 025 Active gabapentin (NEURONTIN) 300 mg capsuleIndicati ons:Neurogenic claudication TAKE 1 CAPSULE BY MOUTH IN THE AFTERNOON AND 2 CAPSULES IN THE EVENING 90 Capsule 025 Active tobramycin (Bhaskar) 300 mg/5 mL Solution for Nebulization Take 5 mL (300 mg) by inhalation see administration instructions. 280 mL 5 025 2025 Active baclofen (LIORESAL) 5 mg tabletIndicatio ns:Spinal stenosis of lumbar region with neurogenic claudication,Sp ondylolisthesis at L5-S1 level,Spondylol ysis of lumbosacral region TAKE 1 TABLET BY MOUTH EVERY DAY NEEDED FOR PAIN 90 Tablet 025 Active baclofen (LIORESAL) 5 mg tabletIndicatio ns:Spinal stenosis of lumbar region with neurogenic claudication,Sp ondylolisthesis at L5-S1 level,Spondylol ysis of lumbosacral region TAKE 1 TABLET BY MOUTH 1 TIME DAILY NEEDED FOR PAIN. 90 Tablet 2 025 2024 Discontinued gabapentin (NEURONTIN) 300 mg capsuleIndicati ons:Neurogenic claudication TAKE 1 CAPSULE BY MOUTH IN THE AFTERNOON AND 2 CAPSULES IN THE EVENING 90 Capsule 025 2024 Discontinued Trelegy Ellipta 100-62.5-25 mcg Disk with Device INHALE 1 PUFF BY MOUTH EVERY DAY 60 Each 025 2024 Discontinued(A lternate therapy prescribed) levoFLOXacin (LEVAQUIN) 500 mg tablet Take 1 Tablet (500 mg) by mouth daily for 7 days. 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 12/04/2023 Atherosclerosis of coronary artery of [place] heart with stable angina pectoris 12/04/[address] (myocardial infarction) 08/13/2023 COPD (chronic obstructive pulmonary disease) 08/2022 ASHD (arteriosclerotic heart disease) 06/24/2023 Abnormal EKG 06/24/2023 Abnormal cardiovascular stress test 06/19/2023 Acquired immunocompromised state 10/03/2022 Chronic anticoagulation - on Eliquis for paroxysmal atrial fibrillation 09/06/2022 Generalized muscle weakness 08/01/2022 Acquired hypothyroidism 08/01/2022 PAF (paroxysmal atrial fibrillation) 03/25/2022 Elevated LFTs 03/22/2022 Neurogenic claudication 03/14/2022 Lumbar disc herniation 03/14/2022 Allergic rhinitis 03/01/2022 Chronic hyponatremia 03/01/2022 Chronic anemia 08/19/2021 DDD (degenerative disc disease), lumbosacral Lumbar facet arthropathy 09/25/2020 Scoliosis (and kyphoscoliosis), idiopathic 09/25 Lumbar facet joint pain 09/25/2020 PCO (posterior capsular opacification), bilatera l 09/25/2020 Dry eyes, bilateral 09/25/2020 Spinal stenosis of lumbar re gion with neurogenic claudication 08/11/2020 Elevated MCV 01/01/2020 Pseudophakia of both eyes 06/23/2019 Astigmatism of both eyes with presbyopia 019 Bilateral carpal tunnel syndrome 11/30/2018 Pure hypercholesterolemia 07/02/2018 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 10/07/2014 SARAHI on CPAP 09/16/2013 HTN (hypertension) Overview (11/29/2020): Updating IMO/ICD9 Code and Description Gastroesophageal reflux disease without esophagi tis Osteoporosis Resolved Problems Problem Noted Date Diagnosed Date Resolved Date Acute kidney injury superimp osed on stage 3b chronic kidney disease 06/26/2024 12/02/2024 Acute exacerbation of chronic heart failure 06/26/2024 12/02/2024 Pneumonia of both lower lobe s due to infectious organism 06/26/2024 12/17/2024 Pancytopenia 12/04/2023 12/02/2024 Ileus 07/08/2023 12/04/2023 Hypokalemia 07/08/2023 12/17/2024 Protein-calorie malnutrition, moderate 06/24/2023 12/04/2023 Acute on chronic systolic CH F (congestive heart failure) 06/24/2023 12/04/2023 Chest pain 06/24/2023 12/17/2024 Acute kidney injury superimposed on CKD 06/24/2023 12/04/2023 ST elevation myocardial infarction (STEMI) 06/23/2023 08/13/2023 Nausea and vomiting 10/03/2022 12/18/19 25 Hypokalemia 08/01/2022 10/03/2022 Cardiogenic shock 03/26/2022 08/03/2022 Ischemic cardiomyopathy 03/23/2022 05/0 09/2023 Acute pulmonary edema 03/23/20222021 NSTEMI (non-ST elevated myoc ardial infarction) 03/22/2022 08/03/2022 Dyslipidemia 03/22/2022 10/03/2022 KENZIE (acute kidney injury) 03/22/2022 Degenerative lumbar spinal stenosis 03/14/2022 10/03/2022 Preoperative general physical examination 03/01/2022 10/03/2022 Immunocompromised due to corticosteroids 08/19/2021 10/03/2022 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 tment with immunosuppressive medication 04/06/2021 10/03/2022 Spondylolisthesis at L5-S1 level 09/25/2020 10/03/2022 Neuroforaminal stenosis of lumbar spine 09/25/2020 10/03/2022 Spondylolysis of lumbosacral region 09/25/2020 10/03/2022 DDD (degenerative disc disease), lumbar 09/25/2020 10/03/2022 Carpal tunnel syndrome of right wrist 08/16/2020 10/03/2022 Combined form of senile cataract of both eyes 06/01/20 19 07/13/2019 Rheumatoid arthritis with po sitive rheumatoid factor 07/24/2015 08/05/2019 Centrilobular emphysema 06/08/2015 05/08/2024 Benign hypertension with CKD (chronic kidney disease) stage III 05/01/2010 12/04/2023 Renal Insufficiency 04/14/2008 05/01/20 10 Asthma 06/08/2015 Osteoporosis 04/24/2009 Impaired fasting glucose Encounters Date Type Department Care Team Description 04/19/2025 12:34 PM CDT - 04/19/2025 11:59 PM CDT Hospital Encounter [facility] CT Scan [place] [address] [place] [id number] Rosalina Zhou MD Arrived Discharge Disposition: Home or Self Care 04/19/2025 [facility] Pulmonology [address] [place] [address] Danielle Cool MD 04/15/2025 [facility] Internal Medicine-[place] [address] [place] [phone] Maritza Jones PA Spinal stenosis of lumbar region with neurogenic claudication; Spondylolisthesis at L5-S1 level; Spondylolysis of lumbosacral region 04/12/2025 11:00 AM CDT Office Visit [facility] Infectious Disease-[place] [address] [place] [address] Rosalina Zhou MD Chronic bronchitis, unspecified chronic bronchitis type ([facility]/HCC) (Primary Dx) 04/10/2025 Refill [facility] Internal Medicine[place] [address] [place] [address] Robert Haney Jr., MD Neurogenic claudication 03/26/2025 9:00 AM CDT Video Visit [facility] Pulmonology [address] [place] [address] Danielle Cool MD Panlobular emphysema ([facility]) (Primary Dx); Pseudomonas aeruginosa colonization 03/25/2025 Telephone [facility] Sleep Center [address] [place] [address] Lisa Barros FNP cpap supplies 03/24/2025 Telephone [facility] Internal Medicine[address] [place] [address] Matti Leon MD Provider Call; Patient Communication 03/17/2025 Telephone [facility] Internal Medicine[address] [place] [address] Matti Leon MD Patient Communication; Erroneous encounter-disregard 03/16/2025 11:40 AM CDT Office Visit [facility] Rheumatology- [facility] [place] [address] [place] [address] Roland Quick MD Rheumatoid arthritis involving multiple sites with positive rheumatoid factor ([facility]) (Primary Dx); Primary osteoarthritis of left knee; assisted systemic steroid user; Primary osteoarthritis involving multiple joints 03/15/2025 Orders Only [facility] Internal Medicine[address] [place] [address] Maritza Jones PA Chronic cough (Primary Dx); Pseudomonas aeruginosa infection 03/14/2025 9:30 AM CDT Video Visit [facility] [address] [place] [address] Lisa Barros, HOUSECLEANER RLS (restless legs syndrome) (Primary Dx); Obstructive sleep apnea 03/14/2025 [facility] [address] [place] [address] Evy Anderson MD 03/10/2025 Results Follow-Up [facility] [place] [address] [place] [address] Maritza Jones PA SPUTUM CULTURE WITH GRAM STAIN 03/09/2025 4:52 PM CDT - 03/09/2025 7:14 PM CDT Emergency [facility] Emergency Medicine [address] [place] [address] Sergey Land DO Chest pain, pleuritic (Primary Dx) Discharge Disposition: Home or Self Care 03/09/2025 Travel 03/06/2025 [facility] [address] [place] [address] Matti Leon MD Neurogenic claudication 03/02/2025 Telephone [facility] [address] [facility] [address] [place] [address] Maritza Jones PA Provider Call 02/22/2025 Telephone [facility] [address] [place] [address] Matti Leon MD Provider Call 02/22/2025 Telephone [facility] [address] [facility] [place] [address] [place] [address] Matti Leon MD Provider Call 02/21/2025 Telephone [facility] Internal Medicine[address] [place] [address] Matti Leon MD Provider Call 02/18/2025 4:00 PM CDT Office Visit [facility] Internal Medicine[place] [address] [place] [address] Maritza Jones PA Hospital discharge follow-up (Primary Dx); Primary hypertension; Pure hypercholesterolemia; 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 Utilization Management [address] [place] [phone] Rajni Mustafa RN Follow Up (Attempted to reach patient for follow up call. Patient unavailable so a voicemail was left. ) 02/15/2025 Refill [facility] Internal Medicine[place] [address] [facility] [place] [address] [place] [phone] Evy Anderson MD 02/14/2025 Telephone [facility] Internal Medicine[place] [address] [place] [address] Matti Leon MD Provider Call 02/11/2025 6:24 PM CDT - 02/14/2025 6:25 PM CDT Hospital Encounter [facility] Medical Surgical [address] [place] [phone] Reji Jc, Marcos Vega DO Acute on chronic combined systolic and diastolic CHF (congestive heart failure) ([facility]) Discharge Disposition: Home Health Care c 02/11/2025 Travel 02/04/2025 Refill [facility] Rheumatology- [place] [address] [place] [address] Roland Quick MD 01/22/2025 Refill [facility] Internal Medicine[place] [address] [place] [phone] Matti Leon MD from Last 3 Months Immunizations Immunization Administration Dates Next Due (ADACEL/BOOSTRIX)(10 YR UP) TDAP VACCINE, 0.5ML, IM 06/25/2016 (Bcg) Bacillus Calmet[place]-glo Vaccine 8 (Moderna Bivalent)(6 Mos Up) COVID-19 Vaccine - Emergency Use Authorization, MRNA(Pf) 50 Mcg/0.5 Ml Im Susp 05/19/2022 (PFIZER)(12 YR UP) COVID-19 VACCINE - EMERGENCY USE AUTHORIZATION, MRNA, [id number](PF) 30 MCG/0.3 ML IM SUSP 05/20/2022,05/21/2021,09/01/2020 (PNEUMOVAX 23)(50 YRS UP) PN EUMOCOCCAL POLYSACCHARIDE (PPV23) 0.5 ML, IM 08/04/2001 (PREVNAR 13)(6 WKS UP) PNEUM OCOCCAL CONJUGATE (PCV13) 0.5 ML, IM 06/09/2015 (Pfizer Bivalent)(5-11 Yrs) COVID-19 Vaccine - Emergency Use Authorization, MRNA, Aubrey(Pf) 10 Mcg/0.2 Ml Im SuspP 09/29/2020 (SHINGRIX)(50 YRS UP) ZOSTER VACCINE RECOMBINANT, 0.5 ML, IM 05/27/2019 (SPIKEVAX 2024-)(12YR UP) COVID-19 VACCINE, MRNA (PF)50 MCG/0.5 ML, IM SYRINGE 06/12/2023 (SPIKEVAX) (12 YRS UP PRIMAR Y SERIES) COVID-19 VACCINE - MRNA-1273(PF) 100 MCG/0.5 ML IM SUSP 05/21/2021 Covid-19, Unspecified Formulation 09/29/2020 INFLUENZA VACCINE HIGH DOSE QUADRIVALENT 65 YR UP PF IM 05/19/2022,05/29/2020 INFLUENZA VACCINE QUADRIVALE NT ADJ 65 YR UP PF IM 06/12/2023 Influenza Seasonal Unspecifi ed Formulation IM 03/09/2024,05/20/2022,05/04/2021,06/04,04/28/2014,05/19/2009,06/13/2008 ,06/07/2007 Influenza Vaccine High Dose 65+ Yrs IM 1 ,06/12/2018,06/25/2017,06/17,06/09/2015 Influenza Vaccine Split 3+ Yrs PF IM 06/2013,05/08/2012,05/07/2011,05/02 PNEUMOVAX (PPSV23) pneumococ zari polysaccharide 23-valent Vaccine 09/24/2002 Pneumococcal vaccine, unspec ified formulation 05/19/2001 Zoster Vaccine Live SQ 08/31/2015 Family History Medical History Relation Name Comments Colon Cancer Brother 1 Maksim Cancer Brother 2 Juan Colon Cancer Brother 2 Juan Leukemia cancer Heart Disease Brother 2 Juan stents Leukemia Brother 2 Juan Cancer Brother 3 Mario Other Brother 4 Immanuel fibromyalgia Arthritis Daughter 1 Rosa Breast Cancer Daughter 1 Rosa Thyroid Disease Daughter 1 Rosa Arthritis-osteo Daughter 2 Susan Hypertension Daughter 2 Susan Kidney Disease Daughter 2 Susan Osteoporosis Daughter 2 Susan Cancer Father [place] Brother Heart Disease Father [place] Diabetes Mother Jasmyne Heart Disease Mother Jasmyne Hypertension Mother Jasmyne Anemia Sister 1 Alis Cataract Sister 1 Alis Pacemaker Sister 1 Alis Stroke Sister 1 Alis Arthritis Son Adalberto Hypertension Son Adalberto Cancer - Other Neg Hx Melanoma Neg Hx Ovarian Cancer Neg Hx Pancreatic Cancer Neg Hx Uterine or Endometrial Cance r, Not Including Cervical Neg Hx Relation Name Status Comments Brother 1 Maksim Brother 2 Juan Alive Brother 3 Mario Alive Brother 4 Immanuel Alive Brother 5 Roc killed in MVA Daughter 1 Rosa Alive Daughter 2 Susan Alive Father [place] Mother Jasmyne Sister 1 Alis Alive Sister 2 Kiera passed in MVA Sister 3 Kiya at Son Adalberto Alive Social History Tobacco Use Types Packs/Day Years Used Date Smoking Tobacco: Passive Smoke Exposure - Never Smoker Cigarettes 1 5 - 08/10/1969 Passive Smoke Exposure: Yes Smokeless Tobacco: Never Tobacco Cessation:Counseling Given: Not Answered Alcohol Use Standard Drinks/Week Comments No 0 [...] on file Legal Sex 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 Gender Identity Not on file Sexual Orientation Not on file Last Filed Vital Signs Vital Sign Reading Time Taken Comments Blood Pressure 142/80 04/12/2025 10:58 AM CDT Pulse 61 04/12/2025 10:58 AM CDT Temperature 36.7 C (98.1 F) 04/12/2025 10:58 AM CDT Respiratory Rate 22 03/09/2025 6:15 PM CDT Oxygen Saturation 94% 04/12/2025 10:58 AM CDT Inhaled Oxygen Concentration - - Weight 85 kg (187 lb 6.4 oz) 04/12/2025 10:58 AM CDT Height 165.1 cm (5' 5 ) 04/12/2025 10:58 AM CDT Body Mass Index 31.18 04/12/2025 10:58 AM CDT Plan of Treatment Upcoming Encounters Date Type Department Care Team (Late st Contact Info) Description 04/27/2025 11:00 AM CDT Office Visit [facility] [address] [facility] [address] [place] [phone] Leticia Martinez, LEAD WORKER OF HOUSEKEEPING AND LAUNDRY [address] [facility] [address] [place] [address] 07/12/2025 11:00 AM PARKING LINE PAINTER Office Visit [facility] Infectious Disease-[place] [address] [place] [address] Rosalina Zhou MD [address] [place] [address] 08/02/2025 1:40 PM PARKING LINE PAINTER Office Visit [facility] Rheumatology- [place] [place] [address] [place] [address] Roland Quick MD [address] [place] [address] 12/06/2025 11:00 AM CDT Office Visit [facility] Internal Medicine-[place] [address] [place] [address] Matti Leon MD [address] [place] [address] 12/20/2025 10:15 AM CDT Office Visit [facility] Production Staff Worker Optometry [facility] [address] [facility] [address] [place] [address] 12/20/2025 10:30 AM CDT Office Visit [facility] Production Staff Worker Optometry [facility] [address] [place] [address] Daugherty, Marita Ayala, OD [address] [place] [address] 03/27/2026 2:15 PM CDT Office Visit [facility] [address] [place] [address] Lisa Barros, [facility] [address] [place] [address] Health Maintenance Due Date Last Done Comments RSV VACCINE (60+ or ) (1 - 1-dose 75+ series) 2011 ZOSTER VACCINE (2 of 2) 07/22/2019 05/27/2019, 08/31 OSTEOPOROSIS SCREENING 06/01/2024 9, 06/01/2019, 12/25/2011, Additional history exists INFLUENZA VACCINE (#1) 2025 4, 06/12/2023, 05/20/2022, Additional history exists COVID-19 Vaccine (2024-2 6 season) 2025 06/12/2023, 05/20/2022, 05/19/2022, Additional history exists Traditional Medicare (ACO) A nnual Wellness Visit 12/03/2025 12/02/2024, 12/03/2023, 10/03/2022, Additional history exists DTAP/TDAP/TD VACCINES (2 - T d or Tdap) 06/25/2026 06/25/2016 PNEUMOCOCCAL VACCINE 50+ YEARS Completed 1 08/09/2014, 09/24/2002, 08/04/2001, Additional history exists Goals Goal Patient Goal Type Associated Problems Recent Progress Patient-Stated? Author Heart Failure Goal Care Plan Heart Failure Problem No Haleigh Lyles, [place] Devices Implanted Type Area Private Chef Device Identifier Shelf Expiration Date Model / Serial / Lot Closure Perclose Proglide [id number] - [id number] Implanted:Qty: 1 on 03/22/[address] [facility] Closure Device Right: Groin NEW- VASC DEVICE 12/02/2023 [id number] / / Closure Perclose Proglide [id number] - [id number] Implanted:Qty: 1 on 03/22/[address] [facility] Closure Device Right: Groin NEW- VASC DEVICE 12/02/2023 [id number] / / [id number] Closure Perclose Prostyle Sut Mediate [id number] - [id number] Implanted:Qty: 1 on 06/23/[address] [facility] Closure Device Right: Groin NEW- VASC DEVICE 03/03/2025 [id number] / / [id number] Lens Io Tecnis 1pc 20.0 [id number] - [id number] Implanted:Qty: 1 on 06/22/2019 by [employer] Andres MD Eye Right: Eye [employer] 05/07/2023 [id number] / [id number] / Lens Io Tecnis 1pc 19.5 [id number] - [id number] Implanted:Qty: 1 on 07/06/2019 by Fawad Andres MD Eye Left: Eye [employer] 05/17/2023 [id number] / [id number] / Hemostatic Surgiflo 8ml W/ Thrombin 2994 - [id number] Implanted:Qty: 1 on 03/15/2022 by Edwardo Jamison MD at [facility] Hemostatic N/A: Spine Lumbar J&J- [employer] 12/01/2022 2994 / / [id number] Hemostatic Surgiflo 8ml W/ Thrombin 2994 - [id number] Implanted:Qty: 1 on 03/15/2022 by Edwardo Jamison MD at [facility] Hemostatic N/A: Spine Lumbar J&J- [employer] 12/01/2022 2994 / / [id number] Stent Synergy Xd 3.0x16mm Evrlms Elut [id number] - [id number] Implanted:Qty: 1 on 03/22/[address] [facility] Stent Left: Coronary [employer] 10/08/2023 [id number] / / [id number] Procedures Procedure Name Priority Date/Time Associated Diagnosis Comments CT CHEST WO CONTRAST Routine 04/19/2025 1:45 PM CDT Chronic bronchitis, unspecified chronic bronchitis type (CMS/HCC) SPUTUM CULTURE WITH GRAM STAIN Routine 04/13/2025 1:46 PM CDT Chronic bronchitis, unspecified chronic bronchitis type (CMS/HCC) TROPONIN 2 HR, 5TH GEN Timed Study 03/09/2025 6:35 PM CDT XR CHEST PA AND LATERAL 2 VW Stat 03/09/2025 5:29 PM CDT DIFFERENTIAL, MANUAL Stat 03/09/2025 5:14 PM CDT TROPONIN BASELINE, 5TH GEN Stat 03/09/2025 5:14 PM CDT COMPREHENSIVE METABOLIC PANEL Stat 03/09/2025 5:14 PM CDT CBC WITH DIFFERENTIAL Stat 03/09/2025 5:14 PM CDT SPUTUM CULTURE WITH GRAM STAIN Routine 03/08/2025 12:54 PM CDT Chronic cough TELEMETRY REPORT 02/15/2025 6:36 AM CDT DIFFERENTIAL, MANUAL Routine 02/14/2025 9:20 AM CDT BRAIN NATRIURETIC PEPTIDE, BNP OR PROBNP Routine 02/14/2025 9:20 AM CDT COMPREHENSIVE METABOLIC PANEL Routine 02/14/2025 9:20 AM CDT CBC WITH DIFFERENTIAL Routine 02/14/2025 9:20 AM CDT MAGNESIUM LEVEL Routine 02/13/2025 5:30 AM CDT BASIC METABOLIC PANEL Routine 02/13/2025 5:30 AM CDT CBC WITH DIFFERENTIAL Routine 02/13/2025 5:30 AM CDT BASIC METABOLIC PANEL Routine 02/12/2025 3:30 AM CDT CBC WITH DIFFERENTIAL Routine 02/12/2025 3:30 AM CDT TROPONIN 6 HR, 5TH GEN Timed Study 02/12/2025 3:30 AM CDT TSH Routine 02/11/2025 9:46 PM CDT TROPONIN 2 HR, 5TH GEN Timed Study 02/11/2025 9:46 PM CDT XR CHEST PA OR AP 1 VW Stat 02/11/2025 6:48 PM CDT EKG 12-LEAD Stat 02/11/2025 6:33 PM CDT RT ASSESS AND TREAT Stat 02/11/2025 6 :29 PM CDT TROPONIN BASELINE, 5TH GEN Stat 02/11/2025 6:28 PM CDT DIFFERENTIAL, MANUAL Stat 02/11/2025 6:28 PM CDT BRAIN NATRIURETIC PEPTIDE, BNP OR PROBNP Stat 02/11/2025 6:28 PM CDT COMPREHENSIVE METABOLIC PANEL Stat 02/11/2025 6:28 PM CDT CBC WITH DIFFERENTIAL Stat 02/11/2025 6:28 PM CDT XR DEXA BONE DENSITY AXIAL 1 OR MORE SITES Routine 06/01/2019 10:08 AM CDT assisted current use of systemic steroids High risk medication use from Last 3 Months or Most Recently Relevant to Health Maintenance Results * CT CHEST WO CONTRAST (04/19/2025 [...] Rosalina Zhou MD CT ORDERABLES Final Result * SPUTUM CULTURE WITH GRAM STAIN (04/13/2025 1:46 PM CDT) Only the most recent of2 resultswithin the time period is included. SPUTUM CULTURE SEE NOTE [facility] Comment: CULTURE, SPUTUM/LOWER RESPIRATORY Micro Number: [id number] Test Status: Final Specimen Source: Sputum Specimen Quality: Adequate Gram Stain: Rare epithelial cells Few White blood cells seen Few Mixed bacterial morphotypes present, none predominant. Gram stain indicates that the specimen is consumer sales representative of the lower respiratory tract. Result: Growth of normal oropharyngeal jyoti. Test Performed at: [facility] [address] [place] [address] Kristofer Servin MD Sputum COUGHED SPUTUM SPECIMEN / Unknown 04/13/2025 1:46 PM CDT 04/14/2025 2:43 AM CDT Rosalina Zhou MD MICROBIOLOGY - GENERAL ORDERA BLES Final Result Performing Organization Address City/[facility]/ZIP Co de Phone Number [facility] [address] [phone] [facility] [address] [place] [address] * (ABNORMAL) TROPONIN 2 HR, 5TH GEN (03/09/2025 6:35 PM CDT) Only the most recent of2 resultswithin the time period is included. TROPONIN T, 2 HR 5TH GEN 70(H) <=10 ng/L 03/09/2025 6:55 PM CDT [facility] DELTA 2HR TROPONIN T -6 See Interp. 03/09/2025 6:55 PM CD[address] [facility] Blood BLOOD SPECIMEN / Unknown Collection / Unknown 03/09/2025 6:35 PM CDT 03/09/2025 6:41 PM CDT Narrative [facility] - 03/09/2025 6:55 PM CDT Troponin elevated. Delta indeterminate. Delay in collection of timed specimen beyond recommended collection interval. Results must be interpreted in clinical context. us Sergey Land DO CHEMISTRY ORDERABLES Final R esult [facility] CLIA # [id number] [address] [place] [address] * XR CHEST PA AND LATERAL 2 VW (03/09/2025 5:29 PM CDT) Anatomical Region Laterality Modality Chest Computed Radiogr aphy 03/09/2025 5:29 PM CDT Narrative 03/09/2025 5:38 PM CDT XR CHEST PA AND LATERAL 2 VW Reason For Exam: Chest Pain. Diagnosis: See Reason for Exam. COMPARISON: 02/11/2025 FINDINGS: Mild cardiomegaly and central vascular congestion. No focal consolidation, pleural effusion, or pneumothorax is seen. No acute osseous abnormality is appreciated. CHF is considered. No significant change from the prior exam. Procedure Note Demetrius Fitzpatrick MD - 03/09/2025 XR CHEST PA AND LATERAL 2 VW Reason For Exam: Chest Pain. Diagnosis: See Reason for Exam. COMPARISON: 02/11/2025 FINDINGS: Mild cardiomegaly and central vascular congestion. No focal consolidation, pleural effusion, or pneumothorax is seen. No acute osseous abnormality is appreciated. CHF is considered. No significant change from the prior exam. [employer] Sergey Land DO DIAGNOSTIC IMAGING ORDERABLE S Final Result * (ABNORMAL) TROPONIN BASELINE, 5TH GEN (03/09/2025 5:14 PM CDT) Only the most recent of2 resultswithin the time period is included. TROPONIN T, BASELINE 5TH GEN 76(H) <=10 ng/L 03/09/2025 5:38 PM CDT [facility] Blood BLOOD SPECIMEN / Unknown Collection / Unknown 03/09/2025 5:14 PM CDT 03/09/2025 5:20 PM CDT Narrative [facility] - 03/09/2025 5:38 PM CDT Troponin elevated. us Sergey Land DO CHEMISTRY ORDERABLES Final R esult [facility] CLIA # [id number] [address] [place] [address] * MANUAL DIFFERENTIAL (03/09/2025 5:14 PM CDT) Only the most recent of3 resultswithin the time period is included. Pathologist [facility] PLATELET EST. Consistent w Count 03/09/2025 5:34 PM CD[address] [facility] ANISOCYTOSIS 2+ /hpf 03/09/2025 5:34 PM [facility] MACROCYTES 2+ /hpf 03/09/2025 5:34 PM CD[address] [facility] HYPOCHROMIA 2+ /hpf 03/09/2025 5:34 PM [address] [facility] Blood BLOOD SPECIMEN / Unknown Collection / Unknown 03/09/2025 5:14 PM CDT 03/09/2025 5:20 PM CDT [facility] - 03/09/2025 5:34 PM CDT Smear reviewed. Findings consistent with automated results. us Sergey Land DO HEMATOLOGY ORDERABLES COM Fi nal Result [facility] CLIA # [id number] [address] [place] [address] * (ABNORMAL) CBC WITH DIFFERENTIAL (03/09/2025 5:14 PM CDT) Only the most recent of5 resultswithin the time period is included. [facility] WBC 8.2 4.0 - 10.0 K/uL 03/09/2025 5:34 PM [facility] RBC 1.89(L) 3.93 - 5.22 M/uL 03/09/2025 5:34 PM [facility] HEMOGLOBIN 7.0(L) 11.2 - 15.7 g/dL 03/09/2025 5:34 PM [facility] HEMATOCRIT 21.6(L) 34.1 - 44.9 % 03/09/2025 5:34 PM [facility] MCV 114.3(H) 79.4 - 94.8 fL 03/09/2025 5:34 PM [facility] MCH 37.0(H) 25.6 - 32.2 pg 03/09/2025 5:34 PM [facility] MCHC 32.4 32.2 - 35.5 g/dL 03/09/2025 5:34 PM [facility] RDW 15.1(H) 11.0 - 14.5 % 03/09/2025 5:34 PM [facility] RDW-STDEV 62.8(H) 36.9 - 56.9 fL 03/09/2025 5:34 PM [facility] PLATELETS 173 163 - 337 K/uL 03/09/2025 5:34 PM [facility] MPV 11.9 10.0 - 14.8 fL 03/09/2025 5:34 PM [facility] NEUTROPHILS 70 34 - 71 % 03/09/2025 5:34 PM [facility] LYMPHOCYTES 19 19 - 52 % 03/09/2025 5:34 PM [facility] MONOCYTES 8 5 - 13 % 03/09/2025 5:34 PM [facility] EOSINOPHILS 3 1 - 6 % 03/09/2025 5:34 PM [facility] BASOPHILS 0 0 - 1 % 03/09/2025 5:34 PM [facility] IMMATURE GRANULOCYTES 1 % 03/09/2025 5:34 PM [facility] NEUTROPHIL ABSOLUTE 5.68 1.56 - 6.13 K/uL 03/09/2025 5:34 PM [facility] LYMPHOCYTE ABSOLUTE 1.56 1.20 - 3.40 K/uL 03/09/2025 5:34 PM [facility] MONOCYTE ABSOLUTE 0.62(H) 0.24 - 0.36 K/uL 03/09/2025 5:34 PM [facility] EOSINOPHIL ABSOLUTE 0.21 0.04 - 0.36 K/uL 03/09/2025 5:34 PM [facility] BASOPHILS ABSOLUTE 0.02 0.01 - 0.08 K/uL 03/09/2025 5:34 PM [facility] IMMATURE GRANULOCYTES ABSOLUTE 0.06 K/uL 03/09/2025 5:34 PM [facility] Blood BLOOD SPECIMEN / Unknown Collection / Unknown 03/09/2025 5:14 PM CDT 03/09/2025 5:20 PM CDT us Sergey Land DO HEMATOLOGY ORDERABLES Final Result [facility] CLIA # [id number] [address] [place] [address] [id number] * (ABNORMAL) COMPREHENSIVE METABOLIC PANEL (03/09/2025 5:14 PM CDT) Only the most recent of3 resultswithin the time period is included. SODIUM 141 136 - 145 mmol/L 03/09/2025 5:38 PM [facility] POTASSIUM 4.8 3.5 - 5.1 mmol/L 03/09/2025 5:38 PM [facility] CHLORIDE 106 98 - 107 mmol/L 03/09/2025 5:38 PM [facility] CO2 24 22 - 29 mmol/L 03/09/2025 5:38 PM [facility] CALCIUM 9.0 8.8 - 10.2 mg/dL 03/09/2025 5:38 PM [facility] BUN 32(H) 8 - 23 mg/dL 03/09/2025 5:38 PM [facility] CREATININE 1.96(H) 0.51 - 0.95 mg/dL 03/09/2025 5:38 PM [facility] Comment:The GFR result is no t clinically significant on patients <18 or >70 years of age. GLUCOSE 102(H) 74 - 99 mg/dL 03/09/2025 5:38 PM [facility] TOTAL PROTEIN 6.5(L) 6.6 - 8.7 g/dL 03/09/2025 5:38 PM [facility] ALBUMIN 3.6 3.5 - 5.2 g/dL 03/09/2025 5:38 PM [facility] BILIRUBIN TOTAL 0.5 0.0 - 1.2 mg/dL 03/09/2025 5:38 PM [address] [facility] ALKALINE PHOSPHATASE 74 35 - 104 U/L 03/09/2025 5:38 PM [address] [facility] AST 43(H) 0 - 35 U/L 03/09/2025 5:38 PM CD[address] [facility] ALT 41(H) 0 - 35 U/L 03/09/2025 5:38 PM T [facility] GFR 24 mL/min/1.7 3 sq meter 03/09/2025 5:38 PM T [facility] Comment:eGFR calculated with 2020 CKD-EPI equation. Vegetarian diet, extremely high or low muscle mass, and may affect results. Cystatin C with Glomerular Filtration Rate is a suitable alternative for these patients. ANION GAP 11 5 - 20 mmol/L 03/09/2025 5:38 PM [facility] Blood BLOOD SPECIMEN / Unknown Collection / Unknown 03/09/2025 5:14 PM CDT 03/09/2025 5:20 PM CDT us Sergey Land DO CHEMISTRY ORDERABLES Final R esult [id number] [address] [place] [address] * TELEMETRY REPORT (02/15/2025 6:36 AM CDT) us Provider Scanning ECG ORDERABLES Final Result * (ABNORMAL) BRAIN NATRIURETIC PEPTIDE, BNP OR PROBNP (02/14/2025 9:20 AM CDT) Only the most recent of2 resultswithin the time period is included. PROBNP, N TERMINAL 12,484(H) 0 - 450 pg/mL 02/14/2025 9:55 AM CDT [facility] Comment: INTERPRETIVE COMMENT based on diagnosis: Diagnostic NT pro-BNP cutoffs for Heart Failure in the absence of renal failure is suggested for the following ranges <75 years: <125 pg/mL >=75 years: <450 pg/mL Exclusionary rule out cut-point for Acute Decompensated Heart Failure(ADHF) All ages: <300 pg/mL Diagnostic NT pro-BNP cutoffs for Acute Decompensated Heart Failure(ADHF) in the absence of renal failure is suggested for the following ages <50 years: > 450 pg/mL 50-75 years: > 900 pg/mL >75 years: >1800 pg/mL Blood Venipuncture / Unknown 02/14/2025 9:20 AM CDT 02/14/2025 9:26 AM CDT us Jb Michelle MD CHEMISTRY ORDERABLES Final Resu lt Performing Organization Address City/[facility]/ZIP Co de Phone Number [id number] [address] [place] [address] * MAGNESIUM LEVEL (02/13/2025 5:30 AM CDT) MAGNESIUM 2.1 1.6 - 2.4 mg/dL 02/13/2025 6:21 AM CD[address] [facility] Blood BLOOD SPECIMEN / Unknown Collection / Unknown 02/13/2025 5:30 AM CDT 02/13/2025 6:06 AM CDT us Allison Cordova MD CHEMISTRY ORDERABLE S Final Result Performing Organization Address [facility] Co de Phone Number [facility] [id number] [address] [place] [address] 41004 * (ABNORMAL) BASIC METABOLIC PANEL (02/13/2025 5:30 AM CDT) Only the most recent of2 resultswithin the time period is included. SODIUM 139 136 - 145 mmol/L 02/13/2025 6:21 AM CDT [facility] POTASSIUM 4.4 3.5 - 5.1 mmol/L 02/13/2025 6:21 AM CDT [facility] CHLORIDE 104 98 - 107 mmol/L 02/13/2025 6:21 AM [facility] CO2 27 22 - 29 mmol/L 02/13/2025 6:21 AM [facility] CALCIUM 8.6(L) 8.8 - 10.2 mg/dL 02/13/2025 6:21 AM [facility] BUN 36(H) 8 - 23 mg/dL 02/13/2025 6:21 AM [facility] CREATININE 2.61(H) 0.51 - 0.95 mg/dL 02/13/2025 6:21 AM [facility] Comment:The GFR result is no t clinically significant on patients <18 or >70 years of age. GLUCOSE 88 74 - 99 mg/dL 02/13/2025 6:21 AM [facility] GFR 17 mL/min/1.7 3 sq meter 02/13/2025 6:21 AM [facility] Comment:eGFR calculated with 2020 CKD-EPI equation. Vegetarian diet, extremely high or low muscle mass, and may affect results. Cystatin C with Glomerular Filtration Rate is a suitable alternative for these patients. ANION GAP 8 5 - 20 mmol/L 02/13/2025 6:21 AM [facility] Blood BLOOD SPECIMEN / Unknown Collection / Unknown 02/13/2025 5:30 AM CDT 02/13/2025 6:06 AM CDT us Allison Cordova MD CHEMISTRY ORDERABLE S Final Result [facility] CLIA # [id number] [address] [place] [address] 655[address] * (ABNORMAL) TROPONIN 6 HR, 5TH GEN (02/12/2025 3:30 AM CDT) TROPONIN T, 6 HR 5TH GEN 52(H) <11 ng/L 02/12/2025 4:09 AM [facility] DELTA 6HR TROPONIN T -4 See Interp. 02/12/2025 4:09 AM [facility] Blood BLOOD SPECIMEN / Unknown Collection / Unknown 02/12/2025 3:30 AM CDT 02/12/2025 3:43 AM CDT Narrative [facility] - 02/12/2025 4:09 AM CDT Troponin elevated. Delta indeterminate. Roland Sahu MD CHEMISTRY ORDERABLES Fi nal Result Performing Organization Address City/[facility]/ZIP Co de Phone Number [facility] CLIA # [id number] [address] [place] [address] 50573 * TSH (02/11/2025 9:46 PM CDT) TSH 2.79 0.27 - 4.20 uIU/mL 02/12/2025 12:53 AM CDT [facility] Blood BLOOD SPECIMEN / Unknown Collection / Unknown 02/11/2025 9:46 PM CDT 02/11/2025 9:51 PM CDT us Roland Sahu MD CHEMISTRY ORDERABLES Fi nal Result Performing Organization Address [facility] Co de Phone Number [facility] CLIA # [id number] [address] [place] [address] 96486 * XR CHEST PA OR AP 1 VW (02/11/2025 6:48 PM CDT) Anatomical Region Laterality Modality Chest Computed Radiogr aphy 02/11/2025 6:48 PM CDT Impressions 02/11/2025 6:52 PM CDT Impression: The cardiac silhouette appears enlarged with pulmonary vascular congestion. No pulmonary consolidation, pleural effusion or pneumothorax is identified. The osseous structures appear grossly intact. Narrative 02/11/2025 6:52 PM CDT Exam: XR CHEST PA OR AP 1 VW Date/Time of Exam: 02/11/2025 6:48 PM Reason For Exam: Shortness of Breath SOB. Diagnosis: See Reason for Exam. Comparison: December 19, 2024. Procedure Note Omar Holley MD - 02/11/2025 Exam: XR CHEST PA OR AP 1 VW Date/Time of Exam: 02/11/2025 6:48 PM Reason For Exam: Shortness of Breath SOB. Diagnosis: See Reason for Exam. Comparison: December 19, 2024. Impression: The cardiac silhouette appears enlarged with pulmonary vascular congestion. No pulmonary consolidation, pleural effusion or pneumothorax is identified. The osseous structures appear grossly intact. Reji Jc DO DIAGNOSTIC IMAGING ORDERABLES Fi nal Result * EKG (02/11/2025 6:33 PM CDT) Narrative Reji Jc DO - 02/11/2025 6:33 PM CDT Reji Jc DO 02/11/2025 10:44 PM EKG Date/Time: 02/11/2025 6:33 PM Performed by: Reji Jc DO Authorized by: Reji Jc DO ECG interpreted by ED Physician in the absence of a it integration architect: yes Rate: ECG rate: 55 ECG rate assessment: bradycardic Rhythm: Rhythm Origin: sinus Rhythm Origin comment: Sinus arrhythmia Rhythm morphology: narrow Sutton: QRS axis: Left Hypertrophy: LVH (Per voltage criteria) QRSTT: QRSTT changes: Yes Septal V1-V2: ST depression in leads V1, V2. Anterolateral (LAD + Circ) I, aVL, V5-V6: ST depression noted in lead aVL. Comments: No significant changes from EKG dated 17 Dec 2024 Reji Jc DO ECG ORDERABLES Final Result * XR DEXA BONE DENSITY AXIAL 1 OR MORE SITES (06/01/2019 10:08 AM CDT) Anatomical Region Laterality Modality Other Impressions 06/01/2019 4:01 PM CDT Abnormal examination Bone density lies in the [...] clinical management available online at [email or web address] [facility] and the Femoral Neck [...] -1.1 Procedure Note Maksim Jaeger MD - 01/04/2021 DEXA Evaluation of the Lumbar Spine and [...] 0.693 Adult T-score: -2.6 Adult Z-score: -1.1 IMPRESSION Abnormal examination Bone density lies in the [...] clinical management available online at [email or web address] [facility] and the Femoral Neck BMD value. Roland Quick MD DIAGNOSTIC IMAGING ORDER ELIANA Final Result from Last 3 Months or Most Recently Relevant to Health Maintenance Additional Health Concerns Active Problems Noted Date Diagnosed Date Heart Failure Problem 12/15/2024 Insurance MEDICARE PART A AND B [employer] MEDICARE PART A AND B [employer] LEIGHA MATTHEWS [id number] * Guarantor: DIXIE RASMUSSEN Account Type Relation to Patient Date of Phone Billing Address Personal/Family [address] [place] [address] RX [facility] Medicare Part D [employer] Medicare Part D Advance Directives For more information, please contact: [phone] * Full Code (Latest Code Status on File) Date Activated Date Inactivated Comments 02/12/2025 12:00 AM 02/14/2025 8:30 PM * Full Code Date Activated Date Inactivated Comments 12/17/2024 4:05 PM 12/19/2024 5:28 PM * Full Code Date Activated Date Inactivated Comments 07/17/2024 3:54 PM 07/19/2024 4:24 PM * Full Code Date Activated Date Inactivated Comments 06/26/2024 4:44 PM 06/27/2024 2:24 PM * Full Code Date Activated Date Inactivated Comments 06/10/2024 12:43 PM 06/13/2024 5:07 PM Care Teams Agricultural Science Professor Relationship Specialty Start Date End Date Matti Leon MD [address] [facility] [address] [place] [address] PCP - General Internal Medicine 07/08/23
--- OUTSIDE RECORDS SUMMARY | 2025-04-21 17:35 | XMS_ITS | Encounter Summary ---
Author Organization [facility] Address [address] [place] [address] Care Team Providers Care Textile Broker Name Role Phone Roosevelt Penn MD Primary Care Provider Unava ilable Encounter Details Date Type Department Care Team (Latest Contact Info) Description 07/12/2002 Outpatient Historical [facility] [address] [place] [id number] Jimmy Harrell MD NO ADDRESS ON FILE CHEST PAIN NOS (Primary Dx) Social History Tobacco Use Types Packs/Day Years Used Date Smoking Tobacco: Never Assessed Comments Unknown Sex and Gender Information Value Date Recorded Sex Assigned at Not on file 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
--- OUTSIDE RECORDS SUMMARY | 2025-04-21 17:36 | XMS_ITS | Encounter Summary ---
Author Organization [facility] Address [address] [place] [address] Care Team Providers Care Mold Repair Technician Name Role Phone Matti Leon MD Primary Care Provider [phone] Reason for Visit * Reason Comments Med Refill Encounter Details Date Type Department Care Team (Late st Contact Info) Description 04/15/2025 Refill [facility] Internal Medicine-[place] [address] [place] [address] Maritza Jones PA [address] [place] [address] Spinal stenosis of lumbar region with neurogenic claudication; Spondylolisthesis at L5-S1 level; Spondylolysis of lumbosacral region Social History Tobacco Use Types Packs/Day Years [...] on file 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 Gender Identity Not on file Sexual Orientation Not on file documented as of this encounter Miscellaneous Notes * Telephone Encounter - Dominic De La Cruz LPN - 04/15/2025 8:29 AM CDT 04/15/2025 8:29 AM Refill Request Medication BACLOFEN 5 MG TABLET Last filled 08/17/2024 #90 RF 2 Next Physical 12/06/2025 Dominic CUADRA documented in this encounter Plan of Treatment Upcoming Encounters Date Type Department Care Team (Late st Contact Info) Description 04/27/2025 11:00 AM CDT Office Visit [facility] [address] [place] [address] Leticia Martinez NP [address] [place] [address] 07/12/2025 11:00 AM LANDSCAPER HELPER Office Visit [facility] Infectious Disease-[place] [address] [place] [address] Rosalina Zhou MD [address] [place] [address] 08/02/2025 1:40 PM LANDSCAPER HELPER Office Visit [facility] Rheumatology- [place] [address] [place] [address] Roland Quick MD [address] [place] [address] 12/06/2025 11:00 AM CDT Office Visit [facility] Internal Medicine-[place] [address] [place] [address] Matti Leon MD [address] [place] [address] 12/20/2025 10:15 AM CDT Office Visit [facility] Assistant Unit [facility] Opt[facility] [address] [facility] [address] [place] [address] 12/20/2025 10:30 AM CDT Office Visit [facility] Assistant Unit [facility] [facility] [address] [facility] [address] [place] [address] Daugherty, Marita Ayala, OD [address] [place] [address] 03/27/2026 2:15 PM CDT Office Visit [facility] Sleep Center [address] [facility] [address] [place] [address] Lisa Barros, LOANS CONSULTANT [address] [facility] [address] [place] [address] documented as of this encounter Goals Goal Patient Goal Type Associated Problems Recent Progress Patient-Stated? Author Heart Failure Goal Care Plan Heart Failure Problem No Haleigh Lyles, ANANT documented as of this encounter Visit Diagnoses Diagnosis Spinal stenosis of lumbar region with neurogenic claudication Spinal stenosis, lumbar region, with neurogenic claudication Spondylolisthesis at L5-S1 level Spondylolysis of lumbosacral region Acquired spondylolisthesis documented in this encounter Additional Health Concerns Active Problems Noted Date Diagnosed Date Heart Failure Problem 12/15/2024 documented as of this encounter Care Teams Mold Repair Technician Relationship Specialty Start Date End Date Matti Leon MD [address] [facility] [address] [place] [address] PCP - General Internal Medicine 07/08/23 documented as of this encounter
--- OUTSIDE RECORDS SUMMARY | 2025-04-21 17:36 | XMS_ITS | Encounter Summary ---
Author Organization [facility] Address [address] [place] [address] Care Team Providers Care Distributor Sales Consultant Name Role Phone Roosevelt Penn MD Primary Care Provider Unava ilable Encounter Details Date Type Department Care Team (Latest Contact Info) Description 08/05/2006 Outpatient Historical [facility] [address] [place] [phone] Alireza Goldman MD NO ADDRESS ON FILE Obstructive Sleep Apnea (Primary Dx) Social History Tobacco Use Types Packs/Day Years Used Date Smoking Tobacco: Never Assessed Comments Unknown Sex and Gender Information Value Date Recorded Sex Assigned at Not on file 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
--- OUTSIDE RECORDS SUMMARY | 2025-04-21 17:36 | XMS_ITS | Encounter Summary ---
Author Organization [facility] Address [address] [place] [address] Care Team Providers Care Insurance Auditor Name Role Phone Matti Leon MD Primary Care Provider [phone] Reason for Visit * Reason Onset Date Comments Information 06/24/2023 Encounter Details Date Type Department Care Team (Late st Contact Info) Description 06/24/2023 Telephone [facility] [address] [facility] [address] [place] [address] Leticia Martinez, INTRAMURAL DIRECTOR [address] [facility] [address] [place] [address] Information Social History Tobacco Use Types Packs/Day Years Used Date Smoking Tobacco: Former Cigarettes 1 3 0 08/04/1956 - 08/04/1959 Smokeless Tobacco: Never Alcohol Use [...] of Transportation (Non-Medical) Not on file 10/03/2022 Comments No Sex and Gender Information Value Date Recorded Sex Assigned at Not on file Legal Sex Female 12:12 AM TALLOW REFINER Gender Identity Not on file Sexual Orientation Not on file documented as of this encounter Miscellaneous Notes * Telephone Encounter - Katia Smith - 06/24/2023 8:44 AM CST [facility] Call Center Communications Provider: Leticia LAUREN MESSAGE Daughter wanted Leticia to know that her mother just had a LHC and is admitted to [facility]. She inquires if her mother still needs the echo that is scheduled for tomorrow. I advised her to talk with her mother's nurse and the hospitalist/release manager taking care of her. [facility] Disability Advocate: ELISHA RileyR OW REFINER documented in this encounter Plan of Treatment Upcoming Encounters Date Type Department Care Team (Late st Contact Info) Description 04/27/2025 11:00 AM CDT Office Visit [facility] [address] [facility] [address] [place] [address] Leticia Martinez, INTRAMURAL DIRECTOR [address] [facility] [address] [place] [address] 07/12/2025 11:00 AM TALLOW REFINER Office Visit [facility] Infectious Disease-[place] [address] [place] [address] Rosalina Zhou MD [address] [facility] [address] [place] [address] 08/02/2025 1:40 PM TALLOW REFINER Office Visit [facility] Rheumatology- [place] [address] [place] [address] Rloand Najera MD [address] [place] [address] 12/06/2025 11:00 AM CDT Office Visit [facility] Internal Medicine-[place] [address] [place] [address] Matti Leon MD [address] [place] [address] 12/20/2025 10:15 AM CDT Office Visit [facility] Operator Automated Process Optometry [address] [facility] [address] [place] [address] 12/20/2025 10:30 AM CDT Office Visit [facility] Operator Automated Process Optometry [address] [facility] [address] [place] [address] DaughertyMarita, OD [address] [place] [address] 03/27/2026 2:15 PM CDT Office Visit [facility] Sleep Center [address] [facility] [address] [place] [address] Lisa Barros, OPHTHALMIC SURGICAL ASSISTANT [address] [address] documented as of this encounter Visit Diagnoses Not on filedocumented in this encounter Additional Health Concerns Infection Onset Date Last Indicated Resolved Time R/O COVID-19 03/23/2024 03/23/2024 03/23/2024 10:5 5 AM CDT Influenza 03/23/2024 03/23/2024 03/30/2024 1:16 AM CDT COVID-19 03/23/2024 03/23/2024 06/11/2024 8:24 AM TALLOW REFINER documented as of this encounter Care Teams Insurance Auditor Relationship Specialty Start Date End Date Matti Leon MD [address] [facility] [address] [place] [address] PCP - General Internal Medicine 07/08/23 documented as of this encounter
--- OUTSIDE RECORDS SUMMARY | 2025-04-21 17:36 | XMS_ITS | Encounter Summary ---
Author Organization [facility] Address [address] [place] [address] Care Team Providers Care Master Fire Control Technician Name Role Phone Roosevelt Penn MD Primary Care Provider Unava ilable Encounter Details Date Type Department Care Team (Latest Contact Info) Description 07/21/2006 Outpatient Historical [facility] Pulmonology-[facility] [place] [address] [place] [address] Vahid Orosco MD [address] [facility] [address] [place], [place] [address] Acute Bronchitis (Primary Dx); Cough; Other Diseases of Lung, not Elsewhere Classified Social History Tobacco Use Types Packs/Day Years Used Date Smoking Tobacco: Never Assessed Comments Unknown Sex and Gender Information Value Date Recorded Sex Assigned at Not on file Legal Sex Female 5:56 AM PERSONNEL ARBITRATOR Gender Identity Not on file Sexual Orientation Not on file documented as of this encounter Plan of Treatment Not on file documented as of this encounter Visit Diagnoses Diagnosis Acute bronchitis- Primary Cough Other diseases of lung, not elsewhere classified documented in this encounter Care Teams Master Fire Control Technician Relationship Specialty Start Date End Date Roosevelt Penn MD PCP - General Internal Medicine 06/25/17 documented as of this encounter
--- OUTSIDE RECORDS SUMMARY | 2025-04-21 17:36 | XMS_ITS | Encounter Summary ---
Author Organization [facility] Address [address] [place] [address] Care Team Providers Care Corporate Director Name Role Phone Roosevelt Penn MD Primary Care Provider Unava ilable Encounter Details Date Type Department Care Team (Late st Contact Info) Description 04/15/2008 Outpatient Historical [facility] DEFAULT DEPARTMENT Alireza Goldman MD NO ADDRESS ON FILE Social History Tobacco Use Types Packs/Day Years Used Date Smoking Tobacco: Former Cigarettes 1 2 0 08/04/1957 - 08/04/1959 Alcohol Use Standard Drinks/Week Comments No 0 (1 standard drink = 0.6 oz pur e alcohol) Comments No Sex and Gender Information Value Date Recorded Sex Assigned at Not on file Legal Sex Female 5:56 AM ENTERPRISE DATA ARCHITECT Gender Identity Not on file Sexual Orientation Not on file documented as of this encounter Plan of Treatment Not on file documented as of this encounter Visit Diagnoses Not on filedocumented in this encounter Care Teams Corporate Director Relationship Specialty Start Date End Date Roosevelt Penn MD PCP - General Internal Medicine 06/25/17 documented as of this encounter
--- OUTSIDE RECORDS SUMMARY | 2025-04-21 17:36 | XMS_ITS | Encounter Summary ---
Author Organization [facility] Address [address] [place] [address] Care Team Providers Care Artificial Candy Maker Name Role Phone Roosevelt Penn MD Primary Care Provider Unava ilable Encounter Details Date Type Department Care Team (Late st Contact Info) Description 06/08/2006 Outpatient Historical [facility] [address] [place] [address] [place] [phone] Social History Tobacco Use Types Packs/Day Years Used Date Smoking Tobacco: Never Assessed Comments Unknown Sex and Gender Information Value Date Recorded Sex Assigned at Not on file Legal Sex Female 5:56 AM INSTALLER MOLDING AND TRIM Gender Identity Not on file Sexual Orientation Not on file documented as of this encounter Plan of Treatment Not on file documented as of this encounter Visit Diagnoses Not on filedocumented in this encounter Care Teams Artificial Candy Maker Relationship Specialty Start Date End Date Roosevelt Penn MD PCP - General Internal Medicine 06/25/17 documented as of this encounter
--- OUTSIDE RECORDS SUMMARY | 2025-04-21 17:36 | XMS_ITS | Encounter Summary ---
Author Organization [facility] Address [address] [place] [address] Care Team Providers Care Amalgamator Name Role Phone Roosevelt Penn MD Primary Care Provider Unava ilable Encounter Details Date Type Department Care Team (Latest Contact Info) Description 03/10/2006 Outpatient Historical [facility] Pulmonology-[facility] [place] [address] [place] [address] Vahid Orosco MD [address] [facility] [address] [place], [place] [id number] Cough (Primary Dx); Other Diseases of Lung, not Elsewhere Classified Social History Tobacco Use Types Packs/Day Years Used Date Smoking Tobacco: Never Assessed Comments Unknown Sex and Gender Information Value Date Recorded Sex Assigned at Not on file Legal Sex Female 5:56 AM PATIENT COMPANION Gender Identity Not on file Sexual Orientation Not on file documented as of this encounter Plan of Treatment Not on file documented as of this encounter Visit Diagnoses Diagnosis Cough- Primary Other diseases of lung, not elsewhere classified documented in this encounter Care Teams Amalgamator Relationship Specialty Start Date End Date Roosevelt Penn MD PCP - General Internal Medicine 06/25/17 documented as of this encounter
--- OUTSIDE RECORDS SUMMARY | 2025-04-21 17:36 | XMS_ITS | Clinical Summary ---
Author Organization [facility] Address [address] [address] Care Team Providers Care Grain Cleaner Name Role Phone Matti Leon MD Primary Care Provider [phone] Allergies No known active allergies Medications Cholecalciferol (VITAMIN D3 PO) Take 1 tablet by mouth in the morning. Active omeprazole (PriLOSEC) [address] capsule Take 1 tablet by mouth 1 (one) time each day 1 Active Multiple Vitamins-Minera ls (PRESERVISION AREDS 2+MULTI VIT PO) twice a day Active alendronate (FOSAMAX) 70 MG tablet TAKE 1TAB BY MOUTH EVERY 7DAYS ON AN EMPTY STOMACH BEFORE OTHER MEDS W/ 8OZ OF WATER, STAY UP 30MINS 1 Active amiodarone (PACERONE) 200 MG tablet Take 1 tablet by mouth 3 Active apixaban (ELIQUIS) 2.5 MG tablet Take 2.5 mg by mouth in the morning and 2.5 mg in the evening. 3 Active Aspirin Low Dose 81 MG EC tablet Take 81 mg by mouth 1 (one) time each day 3 Active budesonide-form oterol (Symbicort) 160-4.5 MCG/ACT inhaler Inhale 2 puffs 1 (one) time each day if needed PRN Active carvedilol (COREG) 3.125 MG tablet Take 3.125 mg by mouth in the morning and 3.125 mg in the evening. 3 Active fluticasone (FLONASE) 50 MCG/ACT nasal spray Administer 1 spray into affected nostril(s) if needed 0 Active folic acid (FOLVITE) 1 MG tablet Take 1 mg by mouth in the morning. 1 Active gabapentin (NEURONTIN) 300 MG capsule Take 300 mg by mouth in the morning and 300 mg in the evening. Take 2 capsule in the afternoon and 1 at night . 4 Active HYDROcodone-julián taminophen (NORCO) 5-325 MG per tablet Take 1 tablet by mouth every 4 (four) hours 1 Active Glucosamine 750 MG tablet Active isosorbide mononitrate (IMDUR) 30 MG 24 hr tablet Take 15 mg by mouth in the morning. 3 Active levalbuterol (XOPENEX) 1.25 MG/0.5ML nebulizer solution Inhale 1.25 mg 1 Active levothyroxine (SYNTHROID, LEVOTHROID) 50 MCG tablet Take 50 mcg by mouth in the morning. 3 Active potassium chloride (KLOR-CON) 10 MEQ CR tablet Take 10 mEq by mouth in the morning. 3 Active predniSONE 5 MG tablet TAKE 1 TABLET BY MOUTH 1 TIME DAILY NEEDED (RA HAND SWELLING). 3 Active senna-docusate (PERICOLACE) 8.6-50 MG per tablet Take 1 tablet by mouth 2 Active nitroglycerin (NITROSTAT) 0.[address] 0.4 mg under the tongue every 5 (five) minutes if needed for chest pain Active rOPINIRole (REQUIP) 0.5 MG tablet Take 0.5 mg by mouth 1 (one) time each day 4 Active Farxiga 10 MG tablet Take 10 mg by mouth 1 (one) time each day in the morning 4 Active Baclofen 5 MG tablet Take 1 tablet by mouth 1 (one) time each day if needed Active Diclofenac Sodium 1 % gel Apply 4 g topically every 6 (six) hours if needed 5 Active Trelegy Ellipta 100-62.5-25 MCG/ACT aerosol powder Inhale 1 puff 1 (one) time each day Active rosuvastatin (CRESTOR) 40 MG tablet Take 1 tablet by mouth every night 4 Active traMADol (ULTRAM) 50 MG tablet Take 50 mg by mouth in the morning. 4 Active albuterol (2.5 MG/3ML) 0.083% nebulizer solution Take 2.5 mg by nebulization every 4 (four) hours if needed for wheezing or shortness of breath 5 Active furosemide (LASIX) 20 MG tabletIndicatio ns:Chronic combined systolic and diastolic congestive heart failure (HCC) Rotate dosing every other day: one half tablet one day, a full tablet the next. 45 tablet 5 5 Active budesonide (PULMICORT) 0.25 MG/2ML nebulizer solution Take 0.25 mg by nebulization in the morning and 0.25 mg before bedtime. Active bumetanide (BUMEX) 1 MG tablet Take 1 mg by mouth 1 (one) time each day 5 Active ticagrelor (BRILINTA) 90 MG tablet Take 90 mg by mouth in the morning and 90 mg in the evening. 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 12/04/2023 Acquired hypothyroidism 08/01/2022 Anemia in other chronic diseases classified else where 03/29/2022 Vitamin deficiency 03/29/2022 Chronic hyponatremia 03/01/2022 Obstructive sleep apnea syndrome 09/16/2013 Encounters Date Type Department Care Team Description 04/21/2025 Orders Only [facility] [address] [place] [phone] Kady Vázquez NP Chronic kidney disease stage 4 (HCC) 04/11/2025 2:30 PM CDT [facility] [address] [place] [place] [address] Kady Vázquez NP Chronic kidney disease stage 4 (HCC) (Primary Dx) 04/08/2025 Results Follow-Up [facility], [facility] [address] [place] [address] Deisy Parker MA 04/08/2025 Documentation Only [facility] [address] [place] [address] Deisy Parker MA 04/08/2025 Telephone [facility] [address] [place] [address] Deisy Parker MA 03/31/2025 Orders Only [facility] [address] [place] [address] Airam Bourne Anemia in chronic kidney disease (Primary Dx); Chronic kidney disease stage 4 (HCC) 03/29/2025 Telephone [facility] [address] [place] [address] Latonya Sousa MD 03/29/2025 Telephone [facility] [address] [place] [address] Latonya Sousa MD 02/02/2025 Documentation Only [facility] [address] [place] [address] Airam Bourne 01/27/2025 Results Follow-Up [facility] [address] [place] [address] Kady Vázquez NP 01/24/2025 Patient Outreach [facility] [address] [place] [address] Ilana Bhatti 01/21/2025 Orders Only [facility] [address] [place] [address] Airam Bourne Anemia in other chronic diseases classified elsewhere (Primary Dx); Chronic kidney disease stage 4 (HCC); Anemia in chronic kidney disease 01/20/2025 Telephone [facility], [facility] [address] [place] [address] Airam Bourne 01/19/2025 3:00 PM CDT Office Visit [facility] [address] [place] [address] Kady Vázquez NP Chronic kidney disease stage 4 (HCC) (Primary Dx); Anemia in other chronic diseases classified elsewhere; Iron deficiency anemia, not otherwise specified from Last 3 Months Family History Medical History Relation Comments Cancer Father Heart disease Father Diabetes Mother Heart disease Mother Hypertension Mother Relation Status Comments Father Mother Social History Tobacco Use Types Packs/Day Years Used Date Smoking Tobacco: Former Cigarettes Q uit: 1968 Smokeless Tobacco: Never Tobacco Cessation:Counseling Given: Not Answered Alcohol Use Standard Drinks/Week Comments Not Currently 0 (1 standard drink = 0.6 oz pur e alcohol) Comments Unknown Sex and Gender Information Value Date Recorded Sex Assigned at Not on file Legal Sex Female 9:39 AM EST Gender Identity Not on file Sexual Orientation Not on file Last Filed Vital Signs Vital Sign Reading Time Taken Comments Blood Pressure 112/50 04/11/2025 2:20 PM CDT Pulse 58 04/11/2025 2:20 PM CDT Temperature - - Respiratory Rate - - Oxygen Saturation 94% 04/11/2025 2:2 0 PM CDT Inhaled Oxygen Concentration - - Weight 83 kg (183 lb) 04/11/2025 2:20 PM CDT per pt scale at home Height 165.1 cm (5' 5 ) 04/11/2025 2:20 PM CDT Body Mass Index 30.45 04/11/2025 2:20 PM CDT Plan of Treatment Upcoming Encounters Date Type Department Care Team (Late st Contact Info) Description 05/01/2025 Orders Only [facility] [address] [place] [phone] Airam Bourne [address] [facility] [address] [place] [address] Anemia in chronic kidney disease; Chronic kidney disease stage 4 (HCC) 07/06/2025 2:40 PM MASONRY TEACHER Office Visit [facility] [address] [place] [address] Latonya Sousa MD [address] [facility] [address] [place] [address] Health Maintenance Due Date Last Done Comments Diabetes: Ophthalmology Exam 09/02/2024, 06/04/2019, 06/01/2019, Additional history exists Diabetes: Pedal Pulse Checked 09/02/2024 Diabetes: Sensory Foot Exam 09/02/2024 Diabetes: Visual Foot Exam 09/02/2024 Diabetes: Hemoglobin A1C 09/26/2024 06/26/2024 Influenza Vaccine (#1) 2025 , 06/12/2023, 05/27/2019, Additional history exists Pneumococcal Vaccine: 50+ Years Completed 06/09/2015, 09/24/2002, 08/04/2001, Additional history exists Hepatitis B Vaccine Aged Out No longe r eligible based on patient's age to complete this topic Procedures Procedure Name Priority Date/Time Associated Diagnosis Comments CBC Routine 03/30/2025 12:33 PM CDT Chronic kidney disease stage 4 (HCC) PTH, INTACT Routine 03/30/2025 12:33 PM CDT Chronic kidney disease stage 4 (HCC) URINE ALBUMIN / CREATININE RATIO Routine 03/30/2025 12:33 PM CDT Chronic kidney disease stage 4 (HCC) RENAL FUNCTION PANEL Routine 03/30/2025 12:33 PM CDT Chronic kidney disease stage 4 (HCC) CBC (INCLUDES DIFF/PLT) (EXTERNAL LAB ENTRY) Routine 03/09/2025 COMPREHENSIVE METABOLIC PANEL (CMP) (EXTERNAL LAB ENTRY) Routine 03/09/2025 FERRITIN Routine 01/27/2025 Iron deficiency anemia, not otherwise specified IRON PANEL (FE, TIBC, TSAT) Routine 01/27/2025 Iron deficiency anemia, not otherwise specified from Last 3 Months Results * (ABNORMAL) Urine albumin / creatinine ratio (03/30/2025 12:33 PM CDT) Creatinine, Ur 36 20 - 275 mg/dL [facility] Urine Microalbumin 3.1 See Note: mg/dL [facility] Comment: Reference Range: Reference Range Not established Microalb/Creat Ratio 86(H) <30 mg/g creat [facility] Comment: The ADA defines abnormalities in albumin excretion as follows: Albuminuria Category Result (mg/g creatinine) Normal to Mildly increased <30 Moderately increased 30-299 Severely increased > OR = 300 The ADA recommends that at least two of three specimens collected within a 3-6 month period be abnormal before considering a patient to be within a diagnostic category. Urine 03/30/2025 12:3 3 PM CDT 03/30/2025 12:33 PM CDT Narrative Resulting Agency Comment Performing Organization Information: Site ID: CT Name: [facility] Address: [id number] [place] [phone] Director: Kristofer Servin MD us Kady Vázquez NP LAB URINE ORDERABLES Constanza l Result [facility] [address] [place] [address] * (ABNORMAL) CBC without diff (03/30/2025 12:33 PM CDT) WBC 6.9 3.8 - 10.8 Thousand/u L [facility] RBC 1.98(L) 3.80 - 5.10 Million/uL [facility] Hemoglobin 7.6(L) 11.7 - 15.5 g/dL [facility] Hematocrit 24.0(L) 35.0 - 45.0 % [facility] MCV 121.2(H) 80.0 - 100.0 fL [facility] MCH 38.4(H) 27.0 - 33.0 pg [facility] MCHC 31.7(L) 32.0 - 36.0 g/dL [facility] Comment: For adults, a slight decrease in the calculated MCHC value (in the range of 30 to 32 g/dL) is most likely not clinically significant; however, it should be interpreted with caution in correlation with other red cell parameters and the patient's clinical condition. RDW 13.9 11.0 - 15.0 % [facility] Platelets 116(L) 140 - 400 Thousand/u L [facility] MPV 12.7(H) 7.5 - 12.5 fL [facility] Comment: Macrocytosis 2 + Ovalocytes 1 + Blood Venous blood / Unknown 03/30/2025 12:33 PM CDT 03/30/2025 12:33 PM CDT Narrative Resulting Agency Comment Performing Organization Information: Site ID: CT Name: [facility] Address: [id number] [place] [phone] Director: Kristofer Servin MD Kady Vázquez NP LAB BLOOD ORDERABLES Constanza l Result [facility] [id number] [place] [phone] * (ABNORMAL) PTH, intact (03/30/2025 12:33 PM CDT) Parathyroid Hormone, Intact 92(H) 16 - 77 pg/mL [facility] Comment: Interpretive Guide Intact PTH Calcium ------- Normal Parathyroid Normal Normal Hypoparathyroidism Low or Low Normal Low Hyperparathyroidism Primary Normal or High High Secondary High Normal or Low Tertiary High High Non-Parathyroid Hypercalcemia Low or Low Normal High Blood 03/30/2025 12:3 3 PM CDT 03/30/2025 12:33 PM CDT Narrative Resulting Agency Comment Performing Organization Information: Site ID: CT Name: [facility] Address: [address] [place] [address] Director: Kristofer Servin MD us Kady Vázquez LOAN BROKER LAB BLOOD ORDERABLES Constanza roque Result BRODIE ORTIZ [facility] [address] [place] [address] * (ABNORMAL) Renal function panel (03/30/2025 12:33 PM CDT) Glucose 134(H) 65 - 99 mg/dL [facility] Comment: Fasting reference interval For someone without known diabetes, a glucose value >125 mg/dL indicates that they may have diabetes and this should be confirmed with a follow-up test. BUN 31(H) 7 - 25 mg/dL [facility] Creatinine 2.03(H) 0.60 - 0.95 mg/dL [facility] eGFR CKD-EPI CR 2020 23(L) > OR = 60 mL/min/1.7 3m2 [facility] BUN/Creatinine Ratio 15 6 - 22 (calc) [facility] Sodium 139 135 - 146 mmol/L [facility] Potassium 4.2 3.5 - 5.3 mmol/L [facility] Chloride 108 98 - 110 mmol/L [facility] Bicarbonate (CO2) 25 20 - 32 mmol/L [facility] Calcium 8.2(L) 8.6 - 10.4 mg/dL [facility] Phosphorus 3.9 2.1 - 4.3 mg/dL [facility] Albumin 3.6 3.6 - 5.1 g/dL [facility] Blood 03/30/2025 12:3 3 PM CDT 03/30/2025 12:33 PM CDT Narrative Resulting Agency Comment Performing Organization Information: Site ID: [id number] Name: [facility] Address: [id number] [place] [phone] Director: Kristofer Servin MD Kady Vázquez NP LAB BLOOD ORDERABLES Constanza l Result BRODIE STRyley [facility] [id number] [place] [phone] * Comprehensive Metabolic Panel (CMP) (03/09/2025) Pathologist [facility] Glucose 102 mg/dL BUN 32 mg/dL Creatinine 1.96 mg/dL Sodium 141 mEq/L Potassium 4.8 mEq/L Chloride 106 Carbon Dioxide 24 mmol/L Calcium 9.0 mg/dL Albumin (Blood) 3.6 g/dL AST (SGOT) 43 U/L ALT (SGPT) 41 U/L Alkaline Phosphatase 74 U/L Total Bilirubin 0.50 MG/DL eGFR 24 Total Protein, Serum 6.5 Anion Gap 11 Blood 03/09/2025 Latonya Sousa MD LAB BLOOD ORDERABLES Final Re sult * CBC (Includes Diff/Plt) (External Lab) (03/09/2025) WBC 8.2 K/uL Red Blood Cell Count 1.89 Hemoglobin 7.0 g/dL Hematocrit 21.6 % MCV 114.3 MCH 37.0 MCHC 32.4 RDW 15.1 Platelet Count 173 MPV 11.9 Absolute Neutrophils 5.68 Absolute Lymphocytes 1.56 Absolute Monocytes 0.62 Absolute Eosinophils 0.21 Absolute Basophils 0.02 Neutrophils 70 K/uL Lymphocytes 19 Monocytes 8 Eosinophils 3 Basophils 0 Blood 03/09/2025 Deisy Cardona MA - 04/08/2025 8:20 AM CDT [facility] CLIA # [id number], [address] [place] [address] Director: Bridgette Baca MD us Latonya Sousa MD LAB BLOOD ORDERABLES Final Re sult * Iron Panel (Fe, TIBC, TSAT) (01/27/2025) Iron, Total 58 [facility] Iron Binding Capacity 180 [facility] % Iron Saturation 32.2 [facility] Ferritin [address] [facility] Blood Venous blood / Unknown 01/27/2025 Narrative [facility] - 01/27/2025 [facility] [address] [place] [address] Kady Vázquez LOAN BROKER LAB BLOOD ORDERABLES Constanza l Result Performing Organization Address [facility] Co de Phone Number [facility] * Ferritin (01/27/2025) Ferritin [address] [facility] Blood Venous blood / Unknown 01/27/2025 Narrative [facility] - 01/27/2025 [facility] [address] [place] [address] Kady Vázquez LOAN BROKER LAB BLOOD ORDERABLES Edit ed Result - Final Performing Organization Address [facility] Co de Phone Number [facility] from Last 3 Months Insurance Medicare [place] LEIGHA Mariscal [id number] Care Teams Grain Cleaner Relationship Specialty Start Date End Date Matti Leon MD [address] [place] [address] PCP - General Internal Medicine 11/20/23
--- OUTSIDE RECORDS SUMMARY | 2025-04-21 17:36 | XMS_ITS | Encounter Summary ---
Author Organization [facility] Address [address] [place] [address] Care Team Providers Care Gold Plater Name Role Phone Roosevelt Penn MD Primary Care Provider Unava ilable Encounter Details Date Type Department Care Team (Latest Contact Info) Description 03/03/2006 Outpatient Historical [facility] Cardiac Thoracic Vascular [facility] [place] [address] [place] [phone] Robert Solis MD NO ADDRESS ON FILE Swelling, Mass, or Lump in Chest (Primary Dx) Social History Tobacco Use Types Packs/Day Years Used Date Smoking Tobacco: Never Assessed Comments Unknown Sex and Gender Information Value Date Recorded Sex Assigned at Not on file Legal Sex Female 5:56 AM SAP BW ARCHITECT Gender Identity Not on file Sexual Orientation Not on file documented as of this encounter Plan of Treatment Not on file documented as of this encounter Visit Diagnoses Diagnosis Swelling, mass, or lump in chest- Primary documented in this encounter Care Teams Gold Plater Relationship Specialty Start Date End Date Roosevelt Penn MD PCP - General Internal Medicine 06/25/17 documented as of this encounter
--- OUTSIDE RECORDS SUMMARY | 2025-04-21 17:36 | XMS_ITS | Encounter Summary ---
Author Organization [facility] Address [address] [place] [address] Care Team Providers Care Machine Shop Worker Name Role Phone Roosevelt Penn MD Primary Care Provider Unava ilable Encounter Details Date Type Department Care Team (Latest Contact Info) Description 06/30/2007 Outpatient Historical [facility] Internal Medicine-[place] [address] [place] [phone] Lamont Jon MD [address] [facility] [address] [place], [place] [id number] Acute Bronchitis (Primary Dx); Other and Unspecified Hyperlipidemia; Unspecified Disorders of Bursae and Tendons in Shoulder Region Social History Tobacco Use Types Packs/Day Years Used Date Smoking Tobacco: Never Assessed Comments Unknown Sex and Gender Information Value Date Recorded Sex Assigned at Not on file Legal Sex Female 5:56 AM OFFICE AUTOMATION TECHNICIAN Gender Identity Not on file Sexual Orientation Not on file documented as of this encounter Plan of Treatment Not on file documented as of this encounter Visit Diagnoses Diagnosis Acute bronchitis- Primary Other and unspecified hyperlipidemia Disorders of bursae and tendons in shoulder region, unspecified documented in this encounter Care Teams Machine Shop Worker Relationship Specialty Start Date End Date Roosevelt Penn MD PCP - General Internal Medicine 06/25/17 documented as of this encounter
--- OUTSIDE RECORDS SUMMARY | 2025-04-21 17:36 | XMS_ITS | Encounter Summary ---
Author Organization [facility] Address [address] [place] [address] Care Team Providers Care Forest Management Teacher Name Role Phone Roosevelt Penn MD Primary Care Provider Unava ilable Encounter Details Date Type Department Care Team (Latest Contact Info) Description 01/23/2006 Outpatient Historical [facility] Pul[facility]ology[facility] [place] [address] [place] [address] Vahid Orosco MD [address] [facility] [address] [place], [place] [address] Other Dyspnea and Respiratory Abnormality (Primary Dx); Other Diseases of Lung, not Elsewhere Classified Social History Tobacco Use Types Packs/Day Years Used Date Smoking Tobacco: Never Assessed Comments Unknown Sex and Gender Information Value Date Recorded Sex Assigned at Not on file Legal Sex Female 5:56 AM STAFFING ASSISTANT Gender Identity Not on file Sexual Orientation Not on file documented as of this encounter Plan of Treatment Not on file documented as of this encounter Visit Diagnoses Diagnosis Other dyspnea and respiratory abnormality- Primary Other diseases of lung, not elsewhere classified documented in this encounter Care Teams Forest Management Teacher Relationship Specialty Start Date End Date Roosevelt Penn MD PCP - General Internal Medicine 06/25/17 documented as of this encounter
--- OUTSIDE RECORDS SUMMARY | 2025-04-21 17:36 | XMS_ITS | Encounter Summary ---
Author Organization [facility] Address [address] [place] [address] Care Team Providers Care Evaluation Engineer Name Role Phone Roosevelt Penn MD Primary Care Provider Unava ilable Encounter Details Date Type Department Care Team (Latest Contact Info) Description 05/22/2006 Outpatient Historical [facility] [address] [place] [address] [place] [phone] Alireza Goldman MD NO ADDRESS ON FILE Obstructive Sleep Apnea (Primary Dx) Social History Tobacco Use Types Packs/Day Years Used Date Smoking Tobacco: Never Assessed Comments Unknown Sex and Gender Information Value Date Recorded Sex Assigned at Not on file Legal Sex Female 5:56 AM REVENUE INVESTIGATOR Gender Identity Not on file Sexual Orientation Not on file documented as of this encounter Plan of Treatment Not on file documented as of this encounter Visit Diagnoses Diagnosis Obstructive sleep apnea- Primary Obstructive sleep apnea (adult) (pediatric) documented in this encounter Care Teams Evaluation Engineer Relationship Specialty Start Date End Date Roosevelt Penn MD PCP - General Internal Medicine 06/25/17 documented as of this encounter
--- OUTSIDE RECORDS SUMMARY | 2025-04-21 17:36 | XMS_ITS | Encounter Summary ---
Author Organization [facility] Address [address] [place] [address] Care Team Providers Care Wind Technician Name Role Phone Roosevelt Penn MD Primary Care Provider Unava ilable Encounter Details Date Type Department Care Team (Latest Contact Info) Description 03/26/2007 Outpatient Historical [facility] [address] [place] [address] [place] [phone] Alireza Goldman MD NO ADDRESS ON FILE Obstructive Sleep Apnea (Primary Dx) Social History Tobacco Use Types Packs/Day Years Used Date Smoking Tobacco: Never Assessed Comments Unknown Sex and Gender Information Value Date Recorded Sex Assigned at Not on file Legal Sex Female 5:56 AM LABORATORY COORDINATOR Gender Identity Not on file Sexual Orientation Not on file documented as of this encounter Plan of Treatment Not on file documented as of this encounter Visit Diagnoses Diagnosis Obstructive sleep apnea- Primary Obstructive sleep apnea (adult) (pediatric) documented in this encounter Care Teams Wind Technician Relationship Specialty Start Date End Date Roosevelt Penn MD PCP - General Internal Medicine 06/25/17 documented as of this encounter
--- OUTSIDE RECORDS SUMMARY | 2025-04-21 17:36 | XMS_ITS | Encounter Summary ---
Author Organization [facility] Address [address] [place] [address] Care Team Providers Care Sewage Reticulation Drafting Officer Name Role Phone Roosevelt Penn MD Primary Care Provider Unava ilable Encounter Details Date Type Department Care Team (Latest Contact Info) Description 08/05/2006 Outpatient Historical [facility] Internal Medicine-[place] [id number] [facility] [address] [place] [address] Ger Taylor MD [address] [place] [address] Osteoarth NOS-Unspec (Primary Dx); Other Abnormal Glucose Social History Tobacco Use Types Packs/Day Years Used Date Smoking Tobacco: Never Assessed Comments Unknown Sex and Gender Information Value Date Recorded Sex Assigned at Not on file Legal Sex Female 5:56 AM PROVIDER ENGAGEMENT EXECUTIVE Gender Identity Not on file Sexual Orientation Not on file documented as of this encounter Plan of Treatment Not on file documented as of this encounter Visit Diagnoses Diagnosis Osteoarthrosis, unspecified whether generalized or localized, unspecified site- Primary Other abnormal glucose documented in this encounter Care Teams Sewage Reticulation Drafting Officer Relationship Specialty Start Date End Date Roosevelt Penn MD PCP - General Internal Medicine 06/25/17 documented as of this encounter
--- OUTSIDE RECORDS SUMMARY | 2025-04-21 17:36 | XMS_ITS | Encounter Summary ---
Author Organization [facility] Address [address] [place] [address] Care Team Providers Care Front End Java Developer Name Role Phone Roosevelt Penn MD Primary Care Provider Unava ilable Encounter Details Date Type Department Care Team (Latest Contact Info) Description 11/11/2006 Outpatient Historical [facility] Pulmonology-[place] Gaurav Chetan [address] [place] [address] Vahid Orosco MD [address] [place], [place] [id number] Other Diseases of Lung, not Elsewhere Classified (Primary Dx) Social History Tobacco Use Types Packs/Day Years Used Date Smoking Tobacco: Never Assessed Comments Unknown Sex and Gender Information Value Date Recorded Sex Assigned at Not on file Legal Sex Female 5:56 AM SWEAT BAND SEWER Gender Identity Not on file Sexual Orientation Not on file documented as of this encounter Plan of Treatment Not on file documented as of this encounter Visit Diagnoses Diagnosis Other diseases of lung, not elsewhere classified- Primary documented in this encounter Care Teams Front End Java Developer Relationship Specialty Start Date End Date Roosevelt Penn MD PCP - General Internal Medicine 06/25/17 documented as of this encounter
--- OUTSIDE RECORDS SUMMARY | 2025-04-21 17:36 | XMS_ITS | Encounter Summary ---
Author Organization [facility] Address [address] [place] [address] Care Team Providers Care Supervisor Contact Lens Name Role Phone Roosevelt Penn MD Primary Care Provider Unava ilable Encounter Details Date Type Department Care Team (Latest Contact Info) Description 04/23/2006 Outpatient Historical [facility] Pulmonology-[facility] Chetan [address] [place] [address] Vahid Orosco MD [address] [facility] [address] [place], [place] [address] Other Diseases of Lung, not Elsewhere Classified (Primary Dx); Obstructive Sleep Apnea Social History Tobacco Use Types Packs/Day Years Used Date Smoking Tobacco: Never Assessed Comments Unknown Sex and Gender Information Value Date Recorded Sex Assigned at Not on file Legal Sex Female 5:56 AM INSTRUCTIONAL DESIGNER Gender Identity Not on file Sexual Orientation Not on file documented as of this encounter Plan of Treatment Not on file documented as of this encounter Visit Diagnoses Diagnosis Other diseases of lung, not elsewhere classified- Primary Obstructive sleep apnea Obstructive sleep apnea (adult) (pediatric) documented in this encounter Care Teams Supervisor Contact Lens Relationship Specialty Start Date End Date Roosevelt Penn MD PCP - General Internal Medicine 06/25/17 documented as of this encounter
--- OUTSIDE RECORDS SUMMARY | 2025-04-21 17:36 | XMS_ITS | Encounter Summary ---
Author Organization [facility] Address [address] [place] [address] Care Team Providers Care Printing Table Worker Name Role Phone Roosevelt Penn MD Primary Care Provider Unava ilable Encounter Details Date Type Department Care Team (Late st Contact Info) Description 04/12/2003 Outpatient Historical [facility] Social History Tobacco Use Types Packs/Day Years Used Date Smoking Tobacco: Never Assessed Comments Unknown Sex and Gender Information Value Date Recorded Sex Assigned at Not on file Legal Sex Female 5:56 AM MANAGER ANIMATION Gender Identity Not on file Sexual Orientation Not on file documented as of this encounter Plan of Treatment Not on file documented as of this encounter Visit Diagnoses Not on filedocumented in this encounter Care Teams Printing Table Worker Relationship Specialty Start Date End Date Roosevelt Penn MD PCP - General Internal Medicine 06/25/17 documented as of this encounter
--- OUTSIDE RECORDS SUMMARY | 2025-04-21 17:36 | XMS_ITS | Encounter Summary ---
Author Organization [facility] Address [address] [place] [address] Care Team Providers Care Mgmt Analyst Name Role Phone Matti Leon MD Primary Care Provider [phone] Encounter Details Date Type Department Care Team (Late st Contact Info) Description 06/27/2023 Telephone [facility] [address] [facility] [address] [place] [address] Allan Velasquez MD [address] [facility] [address] [place] [address] Social History Tobacco Use Types Packs/Day Years [...] on file Legal Sex Female 12:12 AM HEDGE FUND ACCOUNTANT Gender Identity Not on file Sexual Orientation Not on file documented as of this encounter Miscellaneous Notes * Telephone Encounter - Lamont Aj - 06/27/2023 12:28 PM CST Eva (Provider) Caller: Susan Relation to Patient: daughter PHI (Y/N): y MESSAGE Pt was discharged 06/26 with instructions to schedule 2 wk follow up with Dr Velasquez Pt has appt 07/16 with Leticia please advise [facility] Stepdown Nurse: Lamont Aj E FUND ACCOUNTANT documented in this encounter Plan of Treatment Upcoming Encounters Date Type Department Care Team (Late st Contact Info) Description 04/27/2025 11:00 AM CDT Office Visit [facility] [address] [facility] [address] [address] Leticia Martinez, SCHOOL LIBRARY MEDIA SPECIALIST [address] [facility] [address] [address] 07/12/2025 11:00 AM HEDGE FUND ACCOUNTANT Office Visit [facility] Infectious Disease-[place] [address] [place] [address] Rosalina Zhou MD [address] [place] [phone] 08/02/2025 1:40 PM HEDGE FUND ACCOUNTANT Office Visit [facility] Rheumatology- [place] Gaurav Chetan [address] [place] [address] Roland Quick MD [address] [facility] [address] [address] 12/06/2025 11:00 AM CDT Office Visit [facility] Internal Medicine-[place] [address] [place] [address] Matti Leon MD [address] [address] 12/20/2025 10:15 AM CDT Office Visit [facility] Maintenance Worker [facility] [address] [facility] [address] [place] [address] 12/20/2025 10:30 AM CDT Office Visit [facility] Maintenance Worker [facility] [address] [facility] [address] [place] [address] Daugherty, Marita Ayala, OD [address] [address] 03/27/2026 2:15 PM CDT Office Visit [facility] [address] [facility] [address] [place] [address] Lisa Barros, COMMUNICATIONS PROGRAMMER [address] [facility] [address] [address] documented as of this encounter Visit Diagnoses Not on filedocumented in this encounter Additional Health Concerns Infection Onset Date Last Indicated Resolved Time R/O COVID-19 03/23/2024 03/23/2024 03/23/2024 10:5 5 AM CDT Influenza 03/23/2024 03/23/2024 03/30/2024 1:16 AM CDT COVID-19 03/23/2024 03/23/2024 06/11/2024 8:24 AM HEDGE FUND ACCOUNTANT documented as of this encounter Care Teams Mgmt Analyst Relationship Specialty Start Date End Date Matti Leon MD [address] [address] [address] PCP - General Internal Medicine 07/08/23 documented as of this encounter
--- OUTSIDE RECORDS SUMMARY | 2025-04-21 17:36 | XMS_ITS | Encounter Summary ---
Author Organization [facility] Address [address] [place] [address] Care Team Providers Care Retrimmer Name Role Phone Roosevelt Penn MD Primary Care Provider Unava ilable Encounter Details Date Type Department Care Team (Late st Contact Info) Description 03/30/2008 Outpatient Historical [facility] [address] [place] [phone] Alireza Goldman MD NO ADDRESS ON FILE Social History Tobacco Use Types Packs/Day Years Used Date Smoking Tobacco: Never Assessed Comments Unknown Sex and Gender Information Value Date Recorded Sex Assigned at Not on file Legal Sex Female 5:56 AM TAIL WORKER Gender Identity Not on file Sexual Orientation Not on file documented as of this encounter Plan of Treatment Not on file documented as of this encounter Visit Diagnoses Not on filedocumented in this encounter Care Teams Retrimmer Relationship Specialty Start Date End Date Roosevelt Penn MD PCP - General Internal Medicine 06/25/17 documented as of this encounter
--- OUTSIDE RECORDS SUMMARY | 2025-04-21 17:36 | XMS_ITS | Encounter Summary ---
Author Organization [facility] Address [address] [place] [address] Care Team Providers Care Water Conservation Specialist Name Role Phone Roosevelt Penn MD Primary Care Provider Unava ilable Encounter Details Date Type Department Care Team (Latest Contact Info) Description 10/08/2005 Outpatient Historical [facility] Cardiac Piano Case Maker [address] [place] [phone] Jimmy Harrell MD NO ADDRESS ON FILE Cor Athrs[place]-Uns Vessel (Primary Dx) Social History Tobacco Use Types Packs/Day Years Used Date Smoking Tobacco: Never Assessed Comments Unknown Sex and Gender Information Value Date Recorded Sex Assigned at Not on file Legal Sex Female 5:56 AM CARGO SERVICE AGENT Gender Identity Not on file Sexual Orientation Not on file documented as of this encounter Plan of Treatment Not on file documented as of this encounter Procedures Procedure Name Priority Date/Time Associated Diagnosis Comments PT AND APTT Routine 10/08/2005 6:45 AM CARGO SERVICE AGENT HIGH SENSITIVITY CRP Routine 10/08/2005 6:45 AM CARGO SERVICE AGENT BASIC METABOLIC PANEL Routine 10/08/2005 6:45 AM CARGO SERVICE AGENT documented in this encounter Results * PT AND APTT (10/08/2005 6:45 AM CARGO SERVICE AGENT) Pathologist [facility] PROTIME 12.6 12.6 - 14.9 Secs INTERFACE SYSTEM Comment: As of 05 note change in normal range. INR 0.9 INTERFACE SYSTEM Comment: Expected Values for INR: DVT/PE Goal INR 2.5; range 2.0 - 3.0 Valve Replacement Tissue Goal INR 2.5; range 2.0 - 3.0 Mechanical Goal INR 3.0; range 2.5 - 3.5 POST-CA Goal INR 2.5; range 2.0 - 3.0 or Goal 3.0; range 2.5 - 3.5 Atrial Fibrillation Goal INR 2.5; range 2.0 - 3.0 Ischemic Stroke Goal INR 2.5; range 2.0 - 3.0 For additional information see Guidelines for Anticoagulation available from the pharmacy René Mckenna D. PTT 25.8 21.5 - 34.4 Secs INTERFACE SYSTEM Comment: Therapeutic Range: Hi-level PE/DVT heparin protocol 90.1 -110 sec Lo-level PE/DVT heparin protocol 75.1 - 95 sec Cardiac Heparin Protocol 85.1 - 100 sec Neuro Heparin Protocol 70.1 - 85 sec As of 08/28/05 note change in APTT Normal Range. 10/08/2005 6:45 AM CARGO SERVICE AGENT Historical Provider HEMATOLOGY ORDERABLES Final Result Performing Organization Address [facility] Phone Number INTERFACE SYSTEM Refer to clinic/hospital department * HIGH SENSITIVITY CRP (10/08/2005 6:45 AM CARGO SERVICE AGENT) CRP, HIGHLY SENSITIVE See Sep Report INTERFACE SYSTEM 10/08/2005 6:45 AM CARGO SERVICE AGENT Historical Provider CHEMISTRY ORDERABLES Final R esult Performing Organization Address City/[facility] Co de Phone Number INTERFACE SYSTEM Refer to clinic/hospital department * (ABNORMAL) BASIC METABOLIC PANEL (10/08/2005 6:45 AM CARGO SERVICE AGENT) GLUCOSE 110 70 - 110 mg/dL INTERFACE SYSTEM BUN 25(H) 7 - 17 mg/dL INTERFACE SYSTEM CREATININE 1.0 0.7 - 1.2 mg/dL INTERFACE SYSTEM SODIUM 140 136 - 145 mEq/L INTERFACE SYSTEM POTASSIUM 4.1 3.5 - 5.0 mEq/L INTERFACE SYSTEM CHLORIDE 107 95 - 110 mEq/L INTERFACE SYSTEM CO2 27 22 - 32 mmol/l INTERFACE SYSTEM ANION GAP 10 9 - 20 mEq/L INTERFACE SYSTEM OSMOLALITY, CALCULATED 293 275 - 295 mOsm/Kg INTERFACE SYSTEM CALCIUM 9.2 8.4 - 10.5 mg/dL INTERFACE SYSTEM 10/08/2005 6:45 AM CARGO SERVICE AGENT us Historical Provider CHEMISTRY ORDERABLES Final R esult INTERFACE SYSTEM Refer to clinic/hospital department documented in this encounter Visit Diagnoses Diagnosis Coronary atherosclerosis of unspecified type of vessel, [place] or graft- Primary documented in this encounter Care Teams Water Conservation Specialist Relationship Specialty Start Date End Date Roosevelt Penn MD PCP - General Internal Medicine 06/25/17 documented as of this encounter
--- OUTSIDE RECORDS SUMMARY | 2025-04-21 17:36 | XMS_ITS | Encounter Summary ---
Author Organization [facility] Address [address] [place] [address] Care Team Providers Care Personal Chef Name Role Phone Roosevelt Penn MD Primary Care Provider Unava ilable Reason for Referral * Radiology Services (Routine) - Closed Specialty Diagnoses / Procedures Referred By Jeremias coe Referred To Contact Diagnoses Visit for screening mammogram Procedures MAMMO SCRN BILAT 3D ATUL W OR WO CAD MAMMO SCREEN BILAT W OR WO CAD CHG SCREENING MAMMOGRAPHY BI 2-VIEW BREAST INC CAD CHG SCREENING DIGITAL BREAST TOMOSYNTHESIS BI Roosevelt Penn MD Referral ID Status Reason Start Date Expiration Date Visits Re quested Visits Authorized [id number] Closed 09/03/2019 10/03/2020 1 1 RLY CAREGIVER Encounter Details Date Type Department Care Team (Latest Contact Info) Description 09/03/2019 Ancillary Orders [facility] Pre-Registration [place] CALL TO MAKE APPOINTMENT ONLY [address] [place] [address] Roosevelt Penn MD NO ADDRESS ON FILE Visit for screening mammogram Social History Tobacco Use Types Packs/Day Years Used Date Smoking Tobacco: Former Cigarettes 1 2 0 08/04/1957 - 08/04/1959 Smokeless Tobacco: Never Alcohol Use Standard Drinks/Week Comments No 0 (1 standard drink = 0.6 oz pur e alcohol) Comments No Sex and Gender Information Value Date Recorded Sex Assigned at Not on file Legal Sex Female 5:56 AM ELDERLY CAREGIVER Gender Identity Not on file Sexual Orientation Not on file Occupation Industry Job Start Date Job End Date Not on file Not on file Not on file Not on file documented as of this encounter Plan of Treatment Not on file documented as of this encounter Results * MAMMO SCRN BILAT 3D ATUL W OR WO CAD (10/04/2019 9:26 AM ELDERLY CAREGIVER) Anatomical Region Laterality Modality Breast Bilateral Mammography Narrative 10/07/2019 5:53 AM ELDERLY CAREGIVER Bilateral Digital Mammogram with CAD and 3D Tomography Reason for Exam: Screening Comparison: Compared to: 05/16/2016 MAMMO DIGITAL SCREEN BILAT and 01/13/2014 MAMMO DIGITAL SCREEN BILAT Technique: 3D MLO and CC digital tomosynthesis images were acquired and synthesized 2D images (C view) were generated. This digital mammogram was also analyzed by the Computer Aided Detection System CAD). Breast Composition: The breasts are heterogeneously dense, which may obscure small masses. There are no suspicious masses, areas of architectural distortions, or microcalcifications to suggest malignancy. No significant new findings since the prior mammogram(s). us Roosevelt Penn MD MAMMO ORDERABLES Final Resul t documented in this encounter Visit Diagnoses Diagnosis Visit for screening mammogram Other screening mammogram Visit for screening mammogram Other screening mammogram documented in this encounter Care Teams Personal Chef Relationship Specialty Start Date End Date Roosevelt Penn MD PCP - General Internal Medicine 06/25/17 documented as of this encounter
--- OUTSIDE RECORDS SUMMARY | 2025-04-21 17:36 | XMS_ITS | Encounter Summary ---
Author Organization [facility] Address [address] [place] [address] Care Team Providers Care Delivery Person Name Role Phone Roosevelt Penn MD Primary Care Provider Unava ilable Encounter Details Date Type Department Care Team (Latest Contact Info) Description 02/12/2006 Outpatient Historical [facility] [address] [place] [address] Ger Taylor MD [address] [place] [address] Other Diseases of Lung, not Elsewhere Classified (Primary Dx) Social History Tobacco Use Types Packs/Day Years Used Date Smoking Tobacco: Never Assessed Comments Unknown Sex and Gender Information Value Date Recorded Sex Assigned at Not on file Legal Sex Female 5:56 AM ZIGZAG STITCHER Gender Identity Not on file Sexual Orientation Not on file documented as of this encounter Plan of Treatment Not on file documented as of this encounter Visit Diagnoses Diagnosis Other diseases of lung, not elsewhere classified- Primary documented in this encounter Care Teams Delivery Person Relationship Specialty Start Date End Date Roosevelt Penn MD PCP - General Internal Medicine 06/25/17 documented as of this encounter
--- OUTSIDE RECORDS SUMMARY | 2025-04-21 17:36 | XMS_ITS | Encounter Summary ---
Author Organization [facility] Address [address] [place] [address] Care Team Providers Care Professional Development Instructor Name Role Phone Roosevelt Penn MD Primary Care Provider Unava ilable Encounter Details Date Type Department Care Team (Latest Contact Info) Description 01/27/2006 Outpatient Historical [facility] Endoscopy [address] [place] [address] Vahid Orosco MD [address] [facility] [address] [place], [place] [id number] Other Diseases of Lung, not Elsewhere Classified (Primary Dx) Social History Tobacco Use Types Packs/Day Years Used Date Smoking Tobacco: Never Assessed Comments Unknown Sex and Gender Information Value Date Recorded Sex Assigned at Not on file Legal Sex Female 5:56 AM PARKING SUPERVISOR Gender Identity Not on file Sexual Orientation Not on file documented as of this encounter Plan of Treatment Not on file documented as of this encounter Visit Diagnoses Diagnosis Other diseases of lung, not elsewhere classified- Primary documented in this encounter Care Teams Professional Development Instructor Relationship Specialty Start Date End Date Roosevelt Penn MD PCP - General Internal Medicine 06/25/17 documented as of this encounter
--- OUTSIDE RECORDS SUMMARY | 2025-04-21 17:36 | XMS_ITS | Encounter Summary ---
Author Organization [facility] Address [address] [place] [address] Care Team Providers Care Motor Vehicles Supervisor Name Role Phone Roosevelt Penn MD Primary Care Provider Unava ilable Encounter Details Date Type Department Care Team (Late st Contact Info) Description 03/04/2006 Outpatient Historical [facility] [address] [place] [address] Cameron Sweeney MD [address] [address] Social History Tobacco Use Types Packs/Day Years Used Date Smoking Tobacco: Never Assessed Comments Unknown Sex and Gender Information Value Date Recorded Sex Assigned at Not on file 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 CLINICAL HISTORY: Pneumonia. FINDINGS: The heart is normal in size and configuration. The mediastinum is not widened. The right cardiac margin is obscured with increased density in the medial right lower lung field, and increased linear densities in the mid right lower lung field. There is a roughly rounded density with spiculated appearance overlying the inferior right hilum, unchanged from 02/18/2006. There are a few linear densities in the left lower lung field. There has been an osteotomy through the posterior right sixth rib. The right lateral costophrenic angle is blunted. There is a triangular density in or overlying a lateral left upper lobe. IMPRESSION: Blunted right costophrenic angle due to scarring or pleural fluid new from 02/18/2006. No change in the opacified medial right lower lung field, probably due to atelectasis, and linear and subsegmental atelectasis in the mid right lower lung field and mid left lower lung field in comparison with the 02/18/2006 films. No change in the roughly rounded spiculated density which is probably due to scarring or postoperative change in the inferior right hilum. Posterior right sixth rib osteotomy. Triangular density in the lateral left upper lobe probably due to scarring or subsegmental atelectasis. [facility] Dictated By: Chastity Sousa M.D. Electronically Signed By: Chastity Sousa M.D. Date Signed: 03/05/06 SDM Procedure Note Provider, Historical - 06/22/2009 READING OF OUTSIDE FILMS - PA CHEST FROM [facility]: DATE: 03/03/2006. CLINICAL HISTORY: Pneumonia. FINDINGS: The heart is normal in size and configuration. The mediastinum is notwidened. The right cardiac margin is obscured with increased density in the medial right lower lung field,and increased linear densities in the mid right lower lung field. There is a roughly rounded densitywith spiculated appearance overlying the inferior right hilum, unchanged from 02/18/2006. There are afew linear densities in the left lower lung field. There has been an osteotomy through the posteriorright sixth rib. The right lateral costophrenic angle is blunted. There is a triangular density in or overlying a lateral left upper lobe. IMPRESSION: Blunted right costophrenic angle due to scarring or pleural fluid new from02/18/2006. No change in the opacified medial right lower lung field, probably due to atelectasis, andlinear and subsegmental atelectasis in the mid right lower lung field and mid left lower lungfield in comparison with the 02/18/2006 films. No change in the roughly rounded spiculated densitywhich is probably due to scarring or postoperative change in the inferior right hilum. Posterior rightsixth rib osteotomy. Triangular density in the lateral left upper lobe probably due to scarring orsubsegmental atelectasis. sdm Dictated By: Chastity Sousa M.D. Electronically Signed By: Chastity Sousa M.D. Date Signed: 03/05/06 SDM us Cameron Sweeney MD DIAGNOSTIC IMAGING ORDERABLES Final Result Performing Organization Address City/State/[facility] Co de Phone Number INTERFACE SYSTEM Refer to clinic/hospital department documented in this encounter Visit Diagnoses Not on filedocumented in this encounter Care Teams Motor Vehicles Supervisor Relationship Specialty Start Date End Date Roosevelt Penn MD PCP - General Internal Medicine 06/25/17 documented as of this encounter
--- OUTSIDE RECORDS SUMMARY | 2025-04-21 17:36 | XMS_ITS | Encounter Summary ---
Author Organization [facility] Address [address] [facility] [address] [place] [address] Phone Care Team Providers Care Salvage Determiner Name Role Phone Matti Leon MD Primary Care Provider [phone] Encounter Details Date Type Department Care Team (Late st Contact Info) Description 04/08/2025 Results Follow-Up [facility] [address] [facility] [address] [place] [address] Deisy Parker MA [address] [place] [address] [place] [address] Social History Tobacco Use Types Packs/Day Years Used Date Smoking Tobacco: Former Cigarettes Q uit: 1968 Smokeless Tobacco: Never Alcohol Use Standard Drinks/Week Comments Not Currently 0 (1 standard drink = 0.6 oz pur e alcohol) Comments Unknown Sex and Gender Information Value Date Recorded Sex Assigned at Not on file Legal Sex Female 9:39 AM EST Gender Identity Not on file Sexual Orientation Not on file documented as of this encounter Progress Notes * Kady Vázquez NP - 04/08/2025 4:40 PM CDT Noted * Deisy Parker MA - 04/08/2025 11:44 AM CDT Hemoglobin is at a 7.0 we placed orders for infusion to [facility] and pt is waiting for call to schedule appointment documented in this encounter Miscellaneous Notes * Telephone Encounter - Deisy Parker MA - 04/08/2025 3:44 PM CDT Spoke to daughter Susan and pt is asymptomatic. I asked if [facility] has reached out to her yet to schedule the infusion appointment and she said they have not. I gave her the phone number for [facility] Oncology/Hematology so she can call herself. I informed daughter that if mom does become symptomatic to takeher to the ER. Susan verbalized understanding. * Telephone Encounter - Deisy Parker MA - 04/08/2025 3:38 PM CDT ----- Message from Kady Vázquez sent at 04/08/2025 12:51 PM CDT ----- Please call patient daughter. If patient is symptomatic, I.e., worsened fatigue, SOB, MOSCOSO, CP, dizzy, she will need to go to ER toassess for need for transfusion. Do we have verification that she has attended the scheduled infusion appointments? There have been issues with compliance before. Thank you Kady Vázquez NP ----- Message ----- From: Deisy Parker MA Sent: 04/08/2025 11:44 AM CDT To: Kady Vázquez NP Hemoglobin is at a 7.0 we placed orders for infusion to [facility] and pt is waiting for call to schedule appointment ----- Message ----- From: Deisy Parker MA Sent: 04/08/2025 8:22 AM CDT To: [facility] Clinical Support Pool documented in this encounter Plan of Treatment Upcoming Encounters Date Type Department Care Team (Late st Contact Info) Description 05/01/2025 Orders Only [facility], [facility] [address] [address] Airam Bourne [address] [address] Anemia in chronic kidney disease; Chronic kidney disease stage 4 (HCC) 07/06/2025 2:40 PM CLAIM ADJUSTER Office Visit [facility] [address] [place] [address] Latonya Sousa MD [address] [facility] [address] [address] documented as of this encounter Visit Diagnoses Not on filedocumented in this encounter Care Teams Salvage Determiner Relationship Specialty Start Date End Date Matti Leon MD [address] [place] [address] PCP - General Internal Medicine 11/20/23 documented as of this encounter
--- OUTSIDE RECORDS SUMMARY | 2025-04-21 17:36 | XMS_ITS | Encounter Summary ---
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) Social History Tobacco Use Types Packs/Day Years Used Date Smoking Tobacco: Never Assessed Comments Unknown Sex and Gender Information Value Date Recorded Sex Assigned at Not on file 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
--- OUTSIDE RECORDS SUMMARY | 2025-04-21 17:36 | XMS_ITS | Encounter Summary ---
Author Organization [facility] Address [address] [place] [address] Care Team Providers Care Web Feeder Name Role Phone Roosevelt Penn MD Primary Care Provider Unava ilable Encounter Details Date Type Department Care Team (Late st Contact Info) Description 06/07/2008 Outpatient Historical [facility] [address] [id number] Ger Taylor MD [address] [place] [address] Social History Tobacco Use Types Packs/Day Years Used Date Smoking Tobacco: Former Cigarettes 1 2 0 08/04/1957 - 08/04/1959 Alcohol Use Standard Drinks/Week Comments No 0 (1 standard drink = 0.6 oz pur e alcohol) Comments No Sex and Gender Information Value Date Recorded Sex Assigned at Not on file Legal Sex Female 5:56 AM CLINICAL LEADER Gender Identity Not on file Sexual Orientation Not on file documented as of this encounter Plan of Treatment Not on file documented as of this encounter Procedures Procedure Name Priority Date/Time Associated Diagnosis Comments XR DEXA BONE DENSITY 2 SITES Routine 06/09/2008 6:00 PM CLINICAL LEADER documented in this encounter Results * XR DEXA BONE DENSITY 2 SITES (06/09/2008 6:00 PM CLINICAL LEADER) Anatomical Region Laterality Modality Other 06/09/2008 6:00 PM CLINICAL LEADER Narrative 06/10/2008 5:41 PM CLINICAL LEADER 06/09/2008 Reason for Consultation: Surgical menopause without hormonal replacement therapy. Evaluate bone mineral density. DEXA EVALUATION OF THE LUMBAR SPINE AND LEFT PROXIMAL FEMUR: L1-L3: BMD (g/cm2): 1.207 Young adult %: 103 Adult T-score: 0.3 NECK: BMD (g/cm2): 0.873 Young adult %: 89 Adult T-score: -0.9 TOTAL HIP: BMD (g/cm2): 1.030 Young adult %: 103 Adult T-score: 0.3 The technical quality of this examination is acceptable. In the lumbar spine, significant hypertrophic disease was noted in L4 and L5. Therefore, the average of L1-L3 will be primarily used in the analysis of the lumbar spine. Serial measurement #1. Evaluation of both the lumbar spine and left proximal femur reveals normal bone mineral density and no evidence of significant segmental demineralization. IMPRESSION: Both the lumbar spine and left proximal femur reveal normal bone mineral density and no evidence of osteopenia or osteoporosis. Suggest a follow-up examination in a few years. sunny Dictated By: Massimo Miramontes M.D. Electronically Signed By: Massimo Miramontes M.D. Date Signed: 06/10/08 JAW Procedure Note Massimo Miramontes - 06/10/2008 06/09/2008 Reason for Consultation: Surgical menopause without hormonal replacementtherapy. Evaluate bone mineral density. DEXA EVALUATION OF THE LUMBAR SPINE AND LEFT PROXIMAL FEMUR: L1-L3: BMD (g/cm2): 1.207 Young adult %: 103 Adult T-score: 0.3 NECK: BMD (g/cm2): 0.873 Young adult %: 89 Adult T-score: -0.9 TOTAL HIP: BMD (g/cm2): 1.030 Young adult %: 103 Adult T-score: 0.3 The technical quality of this examination is acceptable. In the lumbarspine, significant hypertrophic disease was noted in L4 and L5. Therefore, the average of L1-L3 will beprimarily used in the analysis of the lumbar spine. Serial measurement #1. Evaluation of both the lumbar spine and left proximal femur reveals normalbone mineral density and no evidence of significant segmental demineralization. IMPRESSION: Both the lumbar spine and left proximal femur reveal normal bone mineraldensity and no evidence of osteopenia or osteoporosis. Suggest a follow-up examination in a fewyears. sunny Dictated By: Massimo Miramontes M.D. Electronically Signed By: Massimo Miramontes M.D. Date Signed: 06/10/08 JAW Ger Taylor MD DIAGNOSTIC IMAGING ORDERABLES F inal Result documented in this encounter Visit Diagnoses Not on filedocumented in this encounter Care Teams Web Feeder Relationship Specialty Start Date End Date Roosevelt Penn MD PCP - General Internal Medicine 06/25/17 documented as of this encounter
--- OUTSIDE RECORDS SUMMARY | 2025-04-21 17:36 | XMS_ITS | Encounter Summary ---
Author Organization [facility] Address [address] [place] [address] Care Team Providers Care Mva Still Operator Name Role Phone Roosevelt Penn MD Primary Care Provider Unava ilable Encounter Details Date Type Department Care Team (Latest Contact Info) Description 02/10/2006 Outpatient Historical [facility] Cardiac Thoracic Vascular S[facility] [place] [address] [place] [phone] Cameron Sweeney MD [address] [address] Swelling, Mass, or Lump in Chest (Primary Dx) Social History Tobacco Use Types Packs/Day Years Used Date Smoking Tobacco: Never Assessed Comments Unknown Sex and Gender Information Value Date Recorded Sex Assigned at Not on file Legal Sex Female 5:56 AM TRAFFIC OPERATOR Gender Identity Not on file Sexual Orientation Not on file documented as of this encounter Plan of Treatment Not on file documented as of this encounter Visit Diagnoses Diagnosis Swelling, mass, or lump in chest- Primary documented in this encounter Care Teams Mva Still Operator Relationship Specialty Start Date End Date Roosevelt Penn MD PCP - General Internal Medicine 06/25/17 documented as of this encounter
--- OUTSIDE RECORDS SUMMARY | 2025-04-21 17:36 | XMS_ITS | Encounter Summary ---
Author Organization [facility] Address [address] [place] [address] Care Team Providers Care Solar Maintenance Technician Name Role Phone Roosevelt Penn MD Primary Care Provider Unava ilable Encounter Details Date Type Department Care Team (Latest Contact Info) Description 04/30/2006 Outpatient Historical [facility] Internal Medicine-[place] [address] [facility] [address] [place] [address] Ger Taylor MD [address] [place] [address] Other Abnormal Glucose (Primary Dx); Pneumonia, Organism Unspecified Social History Tobacco Use Types Packs/Day Years Used Date Smoking Tobacco: Never Assessed Comments Unknown Sex and Gender Information Value Date Recorded Sex Assigned at Not on file Legal Sex Female 5:56 AM EXCEPTIONAL STUDENT EDUCATION TEACHER Gender Identity Not on file Sexual Orientation Not on file documented as of this encounter Plan of Treatment Not on file documented as of this encounter Visit Diagnoses Diagnosis Other abnormal glucose- Primary Pneumonia, organism unspecified(486) Pneumonia, organism unspecified documented in this encounter Care Teams Solar Maintenance Technician Relationship Specialty Start Date End Date Roosevelt Penn MD PCP - General Internal Medicine 06/25/17 documented as of this encounter
--- OUTSIDE RECORDS SUMMARY | 2025-04-21 17:36 | XMS_ITS | Encounter Summary ---
Author Organization [facility] Address [address] [place] [address] Care Team Providers Care Capacitor Inspector Name Role Phone Roosevelt Penn MD Primary Care Provider Unava ilable Encounter Details Date Type Department Care Team (Latest Contact Info) Description 03/26/2007 Outpatient Historical [facility] Internal Medicine[place] [address] [facility] [address] [place] [address] Ger Taylor MD [address] [place] [address] Unspecified Essential Hypertension (Primary Dx); Allergic Rhinitis, Cause Unspecified; Unspecified Asthma; Other Abnormal Glucose Social History Tobacco Use Types Packs/Day Years Used Date Smoking Tobacco: Never Assessed Comments Unknown Sex and Gender Information Value Date Recorded Sex Assigned at Not on file Legal Sex Female 5:56 AM CARE PROFESSIONAL Gender Identity Not on file Sexual Orientation Not on file documented as of this encounter Plan of Treatment Not on file documented as of this encounter Visit Diagnoses Diagnosis Unspecified essential hypertension- Primary Allergic rhinitis, cause unspecified Unspecified asthma(493.90) Unspecified asthma Other abnormal glucose documented in this encounter Care Teams Capacitor Inspector Relationship Specialty Start Date End Date Roosevelt Penn MD PCP - General Internal Medicine 06/25/17 documented as of this encounter
--- OUTSIDE RECORDS SUMMARY | 2025-04-21 17:36 | XMS_ITS | Encounter Summary ---
Author Organization [facility] Address [address] [facility] [address] [place] [address] Phone Care Team Providers Care Station Engineer Chief Name Role Phone Matti Leon MD Primary Care Provider [phone] Encounter Details Date Type Department Care Team (Late st Contact Info) Description 04/21/2025 Orders Only [facility] [address] [place] [address] Kady Vázquez NP [address] [facility] [address] [place] [address] Chronic kidney disease stage 4 (HCC) Social History Tobacco Use Types Packs/Day Years [...] st Contact Info) Description 05/01/2025 Orders Only [facility] [address] [facility] [address] [place] [address] Airam Bourne [address] [place] [address] Anemia in chronic kidney disease; Chronic kidney disease stage 4 (HCC) 07/06/2025 2:40 PM WOOL CARDER Office Visit [facility] [address] [place] [address] Latonya Sousa MD [address] [facility] [address] [place] [address] documented as of this encounter Procedures Procedure Name Priority Date/Time Associated Diagnosis Comments URINE ALBUMIN / CREATININE RATIO Routine 03/30/2025 12:33 PM CDT Chronic kidney disease stage 4 (HCC) CBC Routine 03/30/2025 12:33 PM CDT Chronic kidney disease stage 4 (HCC) PTH, INTACT Routine 03/30/2025 12:33 PM CDT Chronic kidney disease stage 4 (HCC) RENAL FUNCTION PANEL Routine 03/30/2025 12:33 PM CDT Chronic kidney disease stage 4 (HCC) documented in this encounter Results * (ABNORMAL) CBC without diff (03/30/2025 12:33 [...] Performing Organization Information: Site ID: [id number] Name: [facility] Address: [address] [place] [address] Director: Kristofer Servin MD Kady Vázquez APPLICATIONS DEVELOPMENT CONSULTANT LAB BLOOD ORDERABLES Constanza l Result [facility] [id number] [place] [address] * (ABNORMAL) PTH, intact (03/30/2025 12:33 PM [...] Performing Organization Information: Site ID: [id number] Name: [facility] Address: [address] [place] [address] Director: Kristofer Servin MD us Kady Vázquez APPLICATIONS DEVELOPMENT CONSULTANT LAB BLOOD ORDERABLES Constanza l Result Performing Organization Address [facility] Co de Phone Number BRODIE ORTIZ [facility] [address] [place] [address] * (ABNORMAL) Urine albumin / creatinine ratio [...] Performing Organization Information: Site ID: [id number] Name: [facility] Address: [address] [place] [address] Director: Kristofer Servin MD us Kady Vázquez NP LAB URINE ORDERABLES Constanza l Result Performing Organization Address [facility] Co de Phone Number BRODIE ORTIZ [facility] [address] [place] [address] * (ABNORMAL) Renal function panel (03/30/2025 12:33 PM CDT) Glucose 134(H) 65 - 99 mg/dL [facility] Comment: Fasting reference interval For someone [...] Agency Comment Performing Organization Information: Site ID: [id number] Name: [facility] Address: [id number] [place] [address] Director: Kristofer Servin MD Kady Vázquez APPLICATIONS DEVELOPMENT CONSULTANT LAB BLOOD ORDERABLES Constanza l Result [facility] [address] [place] [address] documented in this encounter Visit Diagnoses Diagnosis Chronic kidney disease stage 4 (HCC) Anemia in chronic kidney disease Chronic kidney disease stage 4 (HCC) documented in this encounter Care Teams Station Engineer Chief Relationship Specialty Start Date End Date Matti Leon MD [address] [place] [address] PCP - General Internal Medicine 11/20/23 documented as of this encounter
--- OUTSIDE RECORDS SUMMARY | 2025-04-21 17:36 | XMS_ITS | Encounter Summary ---
Author Organization 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 Gender Identity Not on file Sexual Orientation Not on file documented as of this encounter Plan of Treatment Not on file documented as of this encounter Procedures Procedure Name Priority Date/Time Associated Diagnosis Comments POC GLUCOSE Routine 02/19/2006 6:33 AM CDT POC GLUCOSE Routine 02/18/2006 9:14 PM CDT POC GLUCOSE Routine 02/18/2006 5:31 PM CDT POC GLUCOSE Routine 02/18/2006 11:23 AM CDT POC GLUCOSE Routine 02/18/2006 6:30 AM CDT POC GLUCOSE Routine 02/17/2006 8:49 PM CDT POC GLUCOSE Routine 02/17/2006 5:42 PM CDT POC GLUCOSE Routine 02/17/2006 12:13 PM CDT POTASSIUM LEVEL Routine 02/17/2006 8:37 AM CDT POC GLUCOSE Routine 02/17/2006 6:37 AM CDT POC GLUCOSE Routine 02/16/2006 9:43 PM CDT POC GLUCOSE Routine 02/16/2006 5:14 PM CDT POC GLUCOSE Routine 02/16/2006 11:25 AM CDT POC GLUCOSE Routine 02/16/2006 6:30 AM CDT POC GLUCOSE Routine 02/15/2006 9:05 PM CDT CREATININE Routine 02/15/2006 7:28 PM CDT POC GLUCOSE Routine 02/15/2006 5:26 PM CDT POC GLUCOSE Routine 02/15/2006 12:21 PM CDT POC GLUCOSE Routine 02/15/2006 6:50 AM CDT POC GLUCOSE Routine 02/15/2006 12:17 AM CDT POC GLUCOSE Routine 02/14/2006 10:04 PM CDT POC BLOOD GAS, LYTES AND H+H Routine 02/14/2006 3:54 PM CDT XR CHEST PA AND LATERAL 2 VW Routine 02/14/2006 3:41 AM CDT XR CHEST PA OR AP 1 VW Routine 02/14/2006 3:41 AM CDT XR CHEST PA OR AP 1 VW Routine 02/14/2006 3:41 AM CDT XR CHEST PA OR AP 1 VW Routine 02/14/2006 3:41 AM CDT documented in this encounter Results * (ABNORMAL) POC GLUCOSE (02/19/2006 6:33 AM CDT) GLUCOSE POC 117(H) 60 - 100 mg/dL INTERFACE SYSTEM 02/19/2006 6:33 AM CDT Cameron Sweeney MD POINT OF CARE TESTING Final [facility] Performing Organization Address [facility] Phone Number INTERFACE SYSTEM Refer to clinic/hospital department * (ABNORMAL) POC GLUCOSE (02/18/2006 9:14 PM CDT) GLUCOSE POC 122(H) 60 - 100 mg/dL INTERFACE SYSTEM 02/18/2006 9:14 PM CDT Cameron Sweeney MD POINT OF CARE TESTING Final [facility] Performing Organization Address [facility] Phone Number INTERFACE SYSTEM Refer to clinic/hospital department * (ABNORMAL) POC GLUCOSE (02/18/2006 5:31 PM CDT) GLUCOSE POC 103(H) 60 - 100 mg/dL INTERFACE SYSTEM 02/18/2006 5:31 PM CDT us Cameron Sweeney MD POINT OF CARE TESTING Final [facility] Performing Organization Address [facility] Phone Number INTERFACE SYSTEM Refer to clinic/hospital department * (ABNORMAL) POC GLUCOSE (02/18/2006 11:23 AM CDT) GLUCOSE POC 112(H) 60 - 100 mg/dL INTERFACE SYSTEM 02/18/2006 11:2 3 AM CDT Cameron Sweeney MD POINT OF CARE TESTING Final R esult Performing Organization Address [facility] Phone Number INTERFACE SYSTEM Refer to clinic/hospital department * (ABNORMAL) POC GLUCOSE (02/18/2006 6:30 AM CDT) GLUCOSE POC 115(H) 60 - 100 mg/dL INTERFACE SYSTEM 02/18/2006 6:30 AM CDT Cameron Sweeney MD POINT OF CARE TESTING Final R esult Performing Organization Address [facility] Phone Number INTERFACE SYSTEM Refer to clinic/hospital department * (ABNORMAL) POC GLUCOSE (02/17/2006 8:49 PM CDT) GLUCOSE POC 136(H) 60 - 100 mg/dL INTERFACE SYSTEM 02/17/2006 8:49 PM CDT us Cameron Sweeney MD POINT OF CARE TESTING Final R esult Performing Organization Address [facility] Phone Number INTERFACE SYSTEM Refer to clinic/hospital department * (ABNORMAL) POC GLUCOSE (02/17/2006 5:42 PM CDT) GLUCOSE POC 105(H) 60 - 100 mg/dL INTERFACE SYSTEM 02/17/2006 5:42 PM CDT Cameron Sweeney MD POINT OF CARE TESTING Final R esult Performing Organization Address [facility] Phone Number INTERFACE SYSTEM Refer to clinic/hospital department * (ABNORMAL) POC GLUCOSE (02/17/2006 12:13 PM CDT) GLUCOSE POC 105(H) 60 - 100 mg/dL INTERFACE SYSTEM 02/17/2006 12:1 3 PM CDT us Cameron Sweeney MD POINT OF CARE TESTING Final R esult Performing Organization Address [facility] de Phone Number INTERFACE SYSTEM Refer to clinic/hospital department * POTASSIUM LEVEL (02/17/2006 8:37 AM CDT) POTASSIUM 4.6 3.5 - 5.0 mEq/L INTERFACE SYSTEM 02/17/2006 8:37 AM CDT us Cameron Sweeney MD CHEMISTRY ORDERABLES Final Re sult Performing Organization Address [facility] Number INTERFACE SYSTEM Refer to clinic/hospital department * (ABNORMAL) POC GLUCOSE (02/17/2006 6:37 AM CDT) GLUCOSE POC 118(H) 60 - 100 mg/dL INTERFACE SYSTEM 02/17/2006 6:37 AM CDT us Cameron Sweeney MD POINT OF CARE TESTING Final R ult Performing Organization Address [facility] INTERFACE SYSTEM Refer to clinic/hospital department * (ABNORMAL) POC GLUCOSE (02/16/2006 9:43 PM CDT) GLUCOSE POC 157(H) 60 - 100 mg/dL INTERFACE SYSTEM 02/16/2006 9:43 PM CDT us Cameron Sweeney MD POINT OF CARE TESTING Final [facility] Performing Organization Address [facility] INTERFACE SYSTEM Refer to clinic/hospital department * (ABNORMAL) POC GLUCOSE (02/16/2006 5:14 PM CDT) GLUCOSE POC 119(H) 60 - 100 mg/dL INTERFACE SYSTEM 02/16/2006 5:14 PM CDT us Cameron Sweeney MD POINT OF CARE TESTING Final R esult Performing Organization Address [facility] Phone Number INTERFACE SYSTEM Refer to clinic/hospital department * (ABNORMAL) POC GLUCOSE (02/16/2006 11:25 AM CDT) GLUCOSE POC 143(H) 60 - 100 mg/dL INTERFACE SYSTEM 02/16/2006 11:2 5 AM CDT us Cameron Sweeney MD POINT OF CARE TESTING Final R esult Performing Organization Address [facility] Phone Number INTERFACE SYSTEM Refer to clinic/hospital department * (ABNORMAL) POC GLUCOSE (02/16/2006 6:30 AM CDT) GLUCOSE POC 129(H) 60 - 100 mg/dL INTERFACE SYSTEM 02/16/2006 6:30 AM CDT us Cameron Sweeney MD POINT OF CARE TESTING Final R esult Performing Organization Address [facility] Phone Number INTERFACE SYSTEM Refer to clinic/hospital department * (ABNORMAL) POC GLUCOSE (02/15/2006 9:05 PM CDT) GLUCOSE POC 137(H) 60 - 100 mg/dL INTERFACE SYSTEM 02/15/2006 9:05 PM CDT us Cameron Sweeney MD POINT OF CARE TESTING Final R [facility] Performing Organization Address [facility] Phone Number INTERFACE SYSTEM Refer to clinic/hospital department * (ABNORMAL) CREATININE (02/15/2006 7:28 PM CDT) CREATININE 1.5(H) 0.7 - 1.2 mg/dL INTERFACE SYSTEM 02/15/2006 7:28 PM CDT us Cameron Sweeney MD CHEMISTRY ORDERABLES Final Re sult Performing Organization Address [facility] Phone Number INTERFACE SYSTEM Refer to clinic/hospital department * (ABNORMAL) POC GLUCOSE (02/15/2006 5:26 PM CDT) GLUCOSE POC 140(H) 60 - 100 mg/dL INTERFACE SYSTEM 02/15/2006 5:26 PM CDT us Cameron Sweeney MD POINT OF CARE TESTING Final R esult Performing Organization Address [facility] Phone Number INTERFACE SYSTEM Refer to clinic/hospital department * (ABNORMAL) POC GLUCOSE (02/15/2006 12:21 PM CDT) GLUCOSE POC 137(H) 60 - 100 mg/dL INTERFACE SYSTEM 02/15/2006 12:2 1 PM CDT us Cameron Sweeney MD POINT OF CARE TESTING Final R esult Performing Organization Address [facility] Phone Number INTERFACE SYSTEM Refer to clinic/hospital department * (ABNORMAL) POC GLUCOSE (02/15/2006 6:50 AM CDT) GLUCOSE POC 187(H) 60 - 100 mg/dL INTERFACE SYSTEM 02/15/2006 6:50 AM CDT us Cameron Sweeney MD POINT OF CARE TESTING Final R esult Performing Organization Address [facility] Phone Number INTERFACE SYSTEM Refer to clinic/hospital department * (ABNORMAL) POC GLUCOSE (02/15/2006 12:17 AM CDT) GLUCOSE POC 183(H) 60 - 100 mg/dL INTERFACE SYSTEM 02/15/2006 12:1 7 AM CDT us Cameron Sweeney MD POINT OF CARE TESTING Final R esult Performing Organization Address [facility] Phone Number INTERFACE SYSTEM Refer to clinic/hospital department * (ABNORMAL) POC GLUCOSE (02/14/2006 10:04 PM CDT) GLUCOSE POC 174(H) 60 - 100 mg/dL INTERFACE SYSTEM 02/14/2006 10:0 4 PM CDT us Cameron Sweeney MD POINT OF CARE TESTING Final R esult Performing Organization Address [facility] Phone Number INTERFACE SYSTEM Refer to clinic/hospital department * (ABNORMAL) POC ISTAT EG 7+ (02/14/2006 3:54 PM CDT) SPECIMEN TYPE Arterial INTERF ANEL SYSTEM Comment: Sample not collected by [facility] Hemoglobin calculated from Hematocrit result PH 7.35 7.35 - 7.45 Unit INTERFACE SYSTEM PH TEMP CORRECT 7.35 7.35 - 7.45 Unit INTERFACE SYSTEM PCO2 POC 45 35 - 45 mmHg INTERFACE SYSTEM PCO2 TEMP CORRECT 45 35 - 45 mmHg INTERFACE SYSTEM PO2 104 80 - 105 mmHg INTERFACE SYSTEM PO2 TEMP CORRECT 104 80 - 105 mmHg INTERFACE SYSTEM HCO3 (CALC) POC 24.6 22.0 - 26.0 mmol/l INTERFACE SYSTEM BASE EXCESS -1 -2 - 3 mmol/l INTERFACE SYSTEM HEMOGLOBIN POC 10.9 3 g/dL 12.0 - 16.0 g/dL INTERFACE SYSTEM HEMATOCRIT ABG 32(L) 38 - 51 % INTER FACE SYSTEM O2 SATURATION 98 95 - 98 % INTERF ANEL SYSTEM TCO2 (CALC) POC 26 23 - 27 mmol/l INTERFACE SYSTEM SODIUM 135(L) 138 - 146 mEq/L INTERFACE SYSTEM POTASSIUM 3.8 3.5 - 4.9 mEq/L INTERFACE SYSTEM CALCIUM IONIZED 1.05(L) 1.12 - 1.32 mmol/l INTERFACE SYSTEM 02/14/2006 3:54 PM CDT us Cameron Sweeney MD POINT OF CARE TESTING COM Fin al Result INTERFACE SYSTEM Refer to clinic/hospital department * XR CHEST PA AND LATERAL (02/14/2006 3:41 AM CDT) Anatomical Region Laterality Modality Chest Other 02/14/2006 3:41 AM CDT Narrative 02/14/2006 3:41 AM CDT PA AND LATERAL CHEST DATED 02/18/06 HISTORY: Chest tube. The right chest tube which was present on the 02/17/06 image has been removed. There are no tubes or lines. There is no pneumothorax or visible pleural fluid. The heart is normal in size and configuration. The mediastinum is not widened. There are some calcifications within the chest consistent with mild old granulomatous disease. There is linear scarring or atelectasis in the left lung base. There are postsurgical changes of the posterior right sixth rib. There is adjacent soft tissue thickening. The right cardiac margin is obscured, possibly due to adjacent subsegmental atelectasis. The minor fissure is not lowered. There are degenerative changes in the AC joints. There are mild degenerative changes in the spine. IMPRESSION: Absence of the right chest tube in comparison with the 02/17/06 image. No residual pneumothorax. Right chest postsurgical changes. Obscured right cardiac margin, possibly due to adjacent subsegmental atelectasis. Linear atelectasis in the lateral left lung base, improved from the previous film. Old granulomatous disease. Degenerative changes in the shoulders and minimally in the thoracic spine. amh / Dictated By: Chastity Sousa M.D. Electronically Signed By: Chastity Sousa M.D. Date Signed: 02/18/06 Procedure Note 06/22/2009 PA AND LATERAL CHEST DATED 02/18/06 HISTORY: Chest tube. The right chest tube which was present on the 02/17/06 image has beenremoved. There are no tubes or lines. There is no pneumothorax or visible pleural fluid. The heart isnormal in size and configuration. The mediastinum is not widened. There are somecalcifications within the chest consistent with mild old granulomatous disease. There is linear scarringor atelectasis in the left lung base. There are postsurgical changes of the posterior right sixth rib.There is adjacent soft tissue thickening. The right cardiac margin is obscured, possibly due toadjacent subsegmental atelectasis. The minor fissure is not lowered. There are degenerative changes in theAC joints. There are mild degenerative changes in the spine. IMPRESSION: Absence of the right chest tube in comparison with the 02/17/06 image. Noresidual pneumothorax. Right chest postsurgical changes. Obscured right cardiac margin, possibly dueto adjacent subsegmental atelectasis. Linear atelectasis in the lateral left lung base, improvedfrom the previous film. Old granulomatous disease. Degenerative changes in the shoulders andminimally in the thoracic spine. amh / Dictated By: Chastity Sousa M.D. Electronically Signed By: Chastity Sousa M.D. Date Signed: 02/18/06 Cameron Sweeney MD DIAGNOSTIC IMAGING ORDERABLES Final Result * XR CHEST PA OR AP (02/14/2006 3:41 AM CDT) Anatomical Region Laterality Modality Chest Other 02/14/2006 3:41 AM CDT Narrative 02/14/2006 3:41 AM CDT AP PORTABLE CHEST - 02-17-06 0942 HOURS CLINICAL HISTORY: Right thoracoscopy. COMPARISON: February 15, 2006 at 0735 hours. FINDINGS: Right thoracotomy changes are identified with right-sided chest tube. Small right apical pneumothorax is again identified. Minimal bibasilar atelectasis is present. IMPRESSION: No significant interval change. [facility] 1003 Dictated By: Roosevelt Jolly M.D., Ph.D. Electronically Signed By: Roosevelt Jolly M.D., Ph.D. Date Signed: 02/20/06 [facility] Procedure Note 06/22/2009 AP PORTABLE CHEST - 02-17-06 0942 HOURS CLINICAL HISTORY: Right thoracoscopy. COMPARISON: February 15, 2006 at 0735 hours. FINDINGS: Right thoracotomy changes are identified with right-sided chest tube.Small right apical pneumothorax is again identified. Minimal bibasilar atelectasis is present. IMPRESSION: No significant interval change. [facility] 1003 Dictated By: Roosevelt Jolly M.D., Ph.D. Electronically Signed By: Roosevelt Jolly M.D., Ph.D. Date Signed: 02/20/06 [facility] Cameron Sweeney MD DIAGNOSTIC IMAGING ORDERABLES Final Result * XR CHEST PA OR AP (02/14/2006 3:41 AM CDT) Anatomical Region Laterality Modality Chest Other 02/14/2006 3:41 AM CDT Narrative 02/14/2006 3:41 AM CDT PORTABLE CHEST: DATE: 02/15/2006 at 0735 hours. COMPARISON: 02/14/2006. INDICATION: Follow-up right thoracoscopy and lung biopsy. FINDINGS: Right hemithoracic surgical changes are again seen with right chest tube in place. No pneumothorax. The endotracheal tube has been removed. The cardiac silhouette is within normal limits in size. There has been interval decrease in prominence of the superior mediastinum. Atelectatic changes on the left have resolved. IMPRESSION: Post-extubation study demonstrating interval improvement. jaw Dictated By: Alireza Reid M.D. Electronically Signed By: Alireza Reid M.D. Date Signed: 02/15/06 [facility] Procedure Note 06/22/2009 PORTABLE CHEST: DATE: 02/15/2006 at 0735 hours. COMPARISON: 02/14/2006. INDICATION: Follow-up right thoracoscopy and lung biopsy. FINDINGS: Right hemithoracic surgical changes are again seen with right chest tubein place. No pneumothorax. The endotracheal tube has been removed. The cardiac silhouette is withinnormal limits in size. There has been interval decrease in prominence of the superior mediastinum.Atelectatic changes on the left have resolved. IMPRESSION: Post-extubation study demonstrating interval improvement. jaw Dictated By: Alireza Reid M.D. Electronically Signed By: Alireza Reid M.D. Date Signed: 02/15/06 [facility] Cameron Sweeney MD DIAGNOSTIC IMAGING ORDERABLES Final Result * XR CHEST PA OR AP (02/14/2006 3:41 AM CDT) Anatomical Region Laterality Modality Chest Other 02/14/2006 3:41 AM CDT Narrative 02/14/2006 3:41 AM CDT PORTABLE CHEST INDICATIONS: 70-year-old female. Postoperative. COMPARISON STUDIES AND / OR REPORTS: No previous chest x-ray, reference made to chest CT report 2005 which demonstrated multiple bilateral indeterminate pulmonary nodules . FINDINGS: One view of the chest is presented. An endotracheal tube is present, it is noted to be approximately 1.5 cm above the farida. Lungs are hypoinflated. There is consolidation in the left lung suggesting atelectasis / infiltrate versus the nodules described on the chest CT. A left effusion is not excluded. There is a right-sided chest tube, the port is outside the rib cage. I do not identify a pneumothorax. IMPRESSION: Postsurgical changes as described, the port of the chest tube appears outside of the rib cage. There is consolidation of the left lung. amh / Dictated By: Maksim Bhatt D.O. Electronically Signed By: Maksim Bhatt D.O. Date Signed: 02/17/06 Procedure Note 06/22/2009 PORTABLE CHEST INDICATIONS: 70-year-old female. Postoperative. COMPARISON STUDIES AND / OR REPORTS: No previous chest x-ray, reference made to chest CT report 2005which demonstrated multiple bilateral indeterminate pulmonary nodules . FINDINGS: One view of the chest is presented. An endotracheal tube is present, itis noted to be approximately 1.5 cm above the farida. Lungs are hypoinflated. There is consolidation inthe left lung suggesting atelectasis / infiltrate versus the nodules described on the chest CT. Aleft effusion is not excluded. There is a right-sided chest tube, the port is outside the rib cage. Kendall not identify a pneumothorax. IMPRESSION: Postsurgical changes as described, the port of the chest tube appearsoutside of the rib cage. There is consolidation of the left lung. amh / Dictated By: Maksim Bhatt D.O. Electronically Signed By: Maksim Bhatt D.O. Date Signed: 02/17/06 Cameron Sweeney MD DIAGNOSTIC IMAGING ORDERABLES Final Result documented in this encounter Visit Diagnoses Diagnosis Pneumonia, organism unspecified(486)- Primary Pneumonia, organism unspecified documented in this encounter Care Teams Rn Cardiac Rehab Relationship Specialty Start Date End Date Roosevelt Penn MD PCP - General Internal Medicine 06/25/17 documented as of this encounter
--- OUTSIDE RECORDS SUMMARY | 2025-04-21 17:36 | XMS_ITS | Encounter Summary ---
Author Organization [facility] Address [address] [place] [address] Care Team Providers Care Clinical Trial Data Manager Name Role Phone Roosevelt Penn MD Primary Care Provider Unava ilable Encounter Details Date Type Department Care Team (Latest Contact Info) Description 02/12/2006 Outpatient Historical [facility] [address] [place] [id number] Cameron Sweeney MD [address] [address] Other Specified Pre-Operative Examination (Primary Dx) Social History Tobacco Use Types Packs/Day Years Used Date Smoking Tobacco: Never Assessed Comments Unknown Sex and Gender Information Value Date Recorded Sex Assigned at Not on file 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 Gender Identity Not on file Sexual Orientation Not on file documented as of this encounter Plan of Treatment Not on file documented as of this encounter Procedures Procedure Name Priority Date/Time Associated Diagnosis Comments CBC WITH DIFFERENTIAL Routine 02/12/2006 10:25 AM CDT BASIC METABOLIC PANEL Routine 02/12/2006 10:25 AM CDT PET TUMOR OR INFECTION IMG W CT SKB MDTH Routine 02/12/2006 9:19 AM CDT documented in this encounter Results * (ABNORMAL) BASIC METABOLIC PANEL (02/12/2006 10:25 AM CDT) GLUCOSE 93 70 - 110 mg/dL INTERFACE SYSTEM BUN 24(H) 7 - 17 mg/dL INTERFACE SYSTEM CREATININE 1.4(H) 0.7 - 1.2 mg/dL INTERFACE SYSTEM SODIUM 138 136 - 145 mEq/L INTERFACE SYSTEM POTASSIUM 4.5 3.5 - 5.0 mEq/L INTERFACE SYSTEM CHLORIDE 104 95 - 110 mEq/L INTERFACE SYSTEM CO2 26 22 - 32 mmol/l INTERFACE SYSTEM ANION GAP 13 9 - 20 mEq/L INTERFACE SYSTEM OSMOLALITY, CALCULATED 289 275 - 295 mOsm/Kg INTERFACE SYSTEM CALCIUM 9.8 8.4 - 10.5 mg/dL INTERFACE SYSTEM 02/12/2006 10:2 5 AM CDT us Cameron Sweeney MD CHEMISTRY ORDERABLES Final Re sult INTERFACE SYSTEM Refer to clinic/hospital department * (ABNORMAL) CBC WITH DIFFERENTIAL (02/12/2006 10:25 AM CDT) WBC 8.1 4.8 - 10.8 K/ul INTERFACE SYSTEM RBC 4.03(L) 4.20 - 5.40 Mil/ul INTERFACE SYSTEM HEMOGLOBIN 12.8 12.0 - 16.0 g/dL INTERFACE SYSTEM HEMATOCRIT 37.8 36.0 - 46.0 % INTERFACE SYSTEM MCV 93.8 84.0 - 103.0 Fl INTERFACE SYSTEM MCH 31.8 27.0 - 34.0 pg INTERFACE SYSTEM MCHC 33.9 30.0 - 35.0 g/dL INTERFACE SYSTEM RDW 12.9 11.0 - 14.5 % INTERFACE SYSTEM PLATELETS 320 140 - 440 K/ul INTERFACE SYSTEM MPV 9.6 8.9 - 12.8 Fl INTERFACE SYSTEM NEUTROPHILS 50.0 42.2 - 75.2 % INTERFACE SYSTEM LYMPHOCYTES 39.3 24.0 - 44.0 % INTERFACE SYSTEM MONOCYTES 7.2 2.0 - 10.0 % INTERFACE SYSTEM EOSINOPHILS 3.0 0.0 - 7.0 % INTERFACE SYSTEM BASOPHILS 0.5 0.0 - 1.0 % INTERFACE SYSTEM NEUTROPHIL ABSOLUTE 4.1 2.0 - 8.0 K/uL INTERFACE SYSTEM LYMPHOCYTE ABSOLUTE 3.2 1.2 - 4.0 K/ul INTERFACE SYSTEM MONOCYTE ABSOLUTE 0.6 0.1 - 0.6 K/ul INTERFACE SYSTEM EOSINOPHIL ABSOLUTE 0.2 0.0 - 0.7 K/ul INTERFACE SYSTEM BASOPHILS ABSOLUTE 0.0 0.0 - 0.2 K/ul INTERFACE SYSTEM 02/12/2006 10:2 5 AM CDT us Cameron Sweeney MD HEMATOLOGY ORDERABLES Final R esult INTERFACE SYSTEM Refer to clinic/hospital department * PET TUMOR IMG W CT SKL BSE MID THG (02/12/2006 9:19 AM CDT) Anatomical Region Laterality Modality Other 02/12/2006 9:19 AM CDT Narrative 02/12/2006 9:19 AM CDT 02/12/2006 Radiopharmaceutical: [id number] Dose: 10.4 mCi Reason for Consultation: Pulmonary nodules, of concern for neoplasia. For evaluation. RADIONUCLIDE PET METABOLIC TUMOR IMAGING WITH CT ATTENUATION CORRECTION AND ANATOMIC LOCALIZATION FROM SKULL BASE TO MID THIGH: FDG ([id number]) PET imaging was performed at approximately one hour following intravenous infusion of the radiopharmaceutical agent using a dedicated PET / CT full-ring detector with CT-derived attenuation correction of PET data and anatomic localization. Imaging was performed from the skull base to mid thigh levels with subsequent reconstruction of full-trunk orthogonal-view slices in transverse, sagittal, and coronal projections. Today's examination is PET examination #1 and is interpreted in light of the recent diagnostic CT of the chest with contrast of 12/23/2005, interpreted by Dr. Diaz to demonstrate multiple bilateral indeterminate pulmonary nodules with cavitation and a right adrenal adenoma. Today's PET imaging examination demonstrates focally increased tracer in three of the identified pulmonary nodules including a 1.2-cm cavitary lesion in the posterior aspect of the apical posterior segment of the left upper lobe and an adjacent 1-cm nodule in the apical posterior segment and a 1.6-cm peripheral nodule in the superior segment of the right lower lobe. In addition, there is focally increased tracer in a single thoracic vertebra at the T11 level without an associated sclerotic or lytic lesion on the CT portion of the examination. In addition, there is increased tracer in major joints of the shoulder and pelvic girdles. The right adrenal mass does not demonstrate focally increased metabolic activity. There is no parahilar or mediastinal lymph node increased metabolic activity identified. No focal abnormalities within the bowel are identified. The liver and spleen demonstrate physiologic tracer. IMPRESSION: 1. Multiple pulmonary nodules demonstrating increased metabolic activity may reflect an infectious / inflammatory process. Metastatic lesions cannot be totally excluded. 2. No evidence of hilar or mediastinal lymph node neoplasia. 3. A single vertebral body demonstrates focally increased metabolic activity. Early metastatic disease cannot be excluded. 4. The right adrenal gland does not demonstrate focally increased tracer consistent with an adenoma. 5. No evidence of an obvious primary tumor or other foci of potential neoplasia. 6. Arthritic changes are present in the shoulders and hips. jaw Dictated By: Maksim Jaeger M.D. Electronically Signed By: Maksim Jaeger M.D. Date Signed: 02/13/06 JAW Procedure Note 06/22/2009 02/12/2006 Radiopharmaceutical: [id number] Dose: 10.4 mCi Reason for Consultation: Pulmonary nodules, of concern for neoplasia. For evaluation. RADIONUCLIDE PET METABOLIC TUMOR IMAGING WITH CT ATTENUATION CORRECTIONAND ANATOMIC LOCALIZATION FROM SKULL BASE TO MID THIGH: FDG ([id number]) PET imaging was performed at approximatelyone hour following intravenous infusion of the radiopharmaceutical agent using a dedicated PET / CTfull-ring detector with CT-derived attenuation correction of PET data and anatomic localization. Imaging wasperformed from the skull base to mid thigh levels with subsequent reconstruction of szpa-[id number]-[id number] slices in transverse, sagittal, and coronal projections. Today's examination is PET examination#1 and is interpreted in light of the recent diagnostic CT of the chest with contrast of 12/23/2005,interpreted by Dr. Diaz to demonstrate multiple bilateral indeterminate pulmonary nodules withcavitation and a right adrenal adenoma. Today's PET imaging examination demonstrates focally increased tracer inthree of the identified pulmonary nodules including a 1.2-cm cavitary lesion in the posterioraspect of the apical posterior segment of the left upper lobe and an adjacent 1-cm nodule in the apicalposterior segment and a 1.6-cm peripheral nodule in the superior segment of the right lower lobe. Inaddition, there is focally increased tracer in a single thoracic vertebra at the T11 level without anassociated sclerotic or lytic lesion on the CT portion of the examination. In addition, there isincreased tracer in major joints of the shoulder and pelvic girdles. The right adrenal mass does notdemonstrate focally increased metabolic activity. There is no parahilar or mediastinal lymph node increasedmetabolic activity identified. No focal abnormalities within the bowel are identified. The liver and spleendemonstrate physiologic tracer. IMPRESSION: 1. Multiple pulmonary nodules demonstrating increased metabolic activity mayreflect an infectious / inflammatory process. Metastatic lesions cannot be totally excluded. 2. No evidence of hilar or mediastinal lymph node neoplasia. 3. A single vertebral body demonstrates focally increased metabolic activity.Early metastatic disease cannot be excluded. 4. The right adrenal gland does not demonstrate focally increased tracerconsistent with an adenoma. 5. No evidence of an obvious primary tumor or other foci of potentialneoplasia. 6. Arthritic changes are present in the shoulders and hips. sunny Dictated By: Maksim Jaeger M.D. Electronically Signed By: Maksim Jaeger M.D. Date Signed: 02/13/06 JAW us Historical Provider PE ORDERABLES Final Result documented in this encounter Visit Diagnoses Diagnosis Other specified pre-operative examination- Primary documented in this encounter Care Teams Clinical Trial Data Manager Relationship Specialty Start Date End Date Roosevelt Penn MD PCP - General Internal Medicine 06/25/17 documented as of this encounter
--- OUTSIDE RECORDS SUMMARY | 2025-04-21 17:36 | XMS_ITS | Encounter Summary ---
Author Organization [facility] Address [address] [place] [address] Care Team Providers Care Chancery Clerk Name Role Phone Roosevelt Penn MD Primary Care Provider Unava ilable Encounter Details Date Type Department Care Team (Latest Contact Info) Description 04/10/2006 Outpatient Historical [facility] Imaging Services-[facility] [place] [address] [place] [phone] Vahid Orosco MD [address] [place], [place] [id number] Swelling, Mass, or Lump in Chest (Primary Dx) Social History Tobacco Use Types Packs/Day Years Used Date Smoking Tobacco: Never Assessed Comments Unknown Sex and Gender Information Value Date Recorded Sex Assigned at Not on file 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 Gender Identity Not on file Sexual Orientation Not on file documented as of this encounter Plan of Treatment Not on file documented as of this encounter Procedures Procedure Name Priority Date/Time Associated Diagnosis Comments POC CREATININE Routine 04/10/2006 10:[address] CHEST W CONTRAST Routine 04/10/2006 1 2:01 AM CDT documented in this encounter Results * (ABNORMAL) POC CREATININE (04/10/2006 10:34 AM CDT) CREATININE POC 2.0(H) 0.7 - 1.2 mg/dL INTERFACE SYSTEM 04/10/2006 10:3 4 AM CDT us Vahid Orosco MD POINT OF CARE TESTING Final Res ult INTERFACE SYSTEM Refer to clinic/hospital department * CT CHEST W CONTRAST (04/10/2006 12:01 AM CDT) Anatomical Region Laterality Modality Chest Other 04/10/2006 12:0 1 AM CDT Narrative 04/10/2006 12:[address] chest with contrast. Indication 70-year-old female, recheck lung mass. Comparison studies and/or reports: Images and reports, previous CT of the chest, 23 Dec 2005. Thatstudy was interpreted by colleague who noted multiple bilateral pulmonary nodules, one of whichcavitated, that being in the left upper lobe. Protocol: IV contrast: 75 mL of Optiray 350. 5 mm contiguous axial images are obtained. In reference to the left lung, the previously noted left upper lobe posterolaterally positionedpulmonary nodule that previously measured up to 1.4 cm in greatest dimension and demonstratedcavitation within it has significantly decreased in size, it now measures up to approximately 8 mmin greatest dimension and demonstrates no evidence of cavitation. Best seen on series 2, slice 47,there is a new, subpleural mass left mid lung posteriorly measuring approximately 5 mm in greatestdimension. On slice 45, the previously noted 8mm pulmonary nodule has minimally decreased in sizeand now measures approximately 4 mm. In reference to the right lung, there has been interval development of a probable loculated pleuraleffusion, not appreciated on the previous study. In reference to the right base, there is a newpulmonary nodule, best seen series 2, slice 39 medially. At the same level laterally near theloculated pleural effusion is a 5 mm noncalcified pulmonary nodule. Best seen on slice 42,appearing to be adjacent to the pleural effusion is a small focus that may correspond with thepreviously noted dominant pleural based pulmonary nodule which measured up to approximately 1.46 cmin greatest dimension and was previously seen on slice 26. Dedicated mediastinal-windowed imaging demonstrates small shotty nonspecific mediastinal lymph nodes. The heart is within normal limits. Stable right adrenal adenomas noted in the right upper quadrant,which is otherwise unremarkable. Impression: 1. Multiple pulmonary nodules, majority of these have decreased in size from the prior study but notcompletely resolved. At least one new small subcentimeter pulmonary nodule is noted. There has beeninterval development of a loculated small right pleural effusion. - Dictated By: Maksim Bhatt D.O. Electronically Signed By: Maksim Bhatt D.O. Date Signed: 04/10/06 Procedure Note 06/23/2009 CT chest with contrast. Indication 70-year-old female, recheck lung mass. Comparison studies and/or reports: Images and reports, previous CT of the chest, 23 Dec 2005. Thatstudy wasinterpreted by colleague who noted multiple bilateral pulmonary nodules, one of whichcavitated, thatbeing in the left upper lobe. Protocol: IV contrast: 75 mL of Optiray 350. 5 mm contiguous axial images are obtained. In reference to the left lung, the previously noted left upper lobeposterolaterally positionedpulmonary nodule that previously measured up to 1.4 cm in greatest dimension anddemonstratedcavitation within it has significantly decreased in size, it now measures up to approximately 8mmin greatest dimension and demonstrates no evidence of cavitation. Best seen on series 2, slice47,there is a new, subpleural mass left mid lung posteriorly measuring approximately 5 mm ingreatestdimension. On slice 45, the previously noted 8mm pulmonary nodule has minimally decreased in sizeand now measuresapproximately 4 mm. In reference to the right lung, there has been interval development of aprobable loculated pleuraleffusion, not appreciated on the previous study. In reference tothe right base, there is a newpulmonary nodule, best seen series 2, slice 39 medially. At the samelevel laterally near theloculated pleural effusion is a 5 mm noncalcified pulmonary nodule. Best seen onslice 42,appearing to be adjacent to the pleural effusion is a small focus that may correspond withthepreviously noted dominant pleural based pulmonary nodule which measured up to approximately 1.46 cmingreatest dimension and was previously seen on slice 26. Dedicated mediastinal-windowed imaging demonstrates small shottynonspecific mediastinal lymph nodes. The heart is within normal limits. Stable right adrenal adenomas noted inthe right upper quadrant,which is otherwise unremarkable. Impression: 1. Multiple pulmonary nodules, majority of these have decreased in sizefrom the prior study but notcompletely resolved. At least one new small subcentimeter pulmonarynodule is noted. There has beeninterval development of a loculated small right pleural effusion. - Dictated By: Maksim Bhatt D.O. Electronically Signed By: Maksim Bhatt D.O. Date Signed: 04/10/[address] ORDERABLES Final Result documented in this encounter Visit Diagnoses Diagnosis Swelling, mass, or lump in chest- Primary documented in this encounter Care Teams Chancery Clerk Relationship Specialty Start Date End Date Roosevelt Penn MD PCP - General Internal Medicine 06/25/17 documented as of this encounter
--- OUTSIDE RECORDS SUMMARY | 2025-04-21 17:36 | XMS_ITS | Encounter Summary ---
Author Organization [facility] Address [address] [place] [address] Care Team Providers Care Commuter Train Operator Name Role Phone Roosevelt Penn MD Primary Care Provider Unava ilable Encounter Details Date Type Department Care Team (Latest Contact Info) Description 06/08/2006 Outpatient Historical [facility] [address] [place] [phone] Alireza Goldman MD NO ADDRESS ON FILE Obstructive Sleep Apnea (Adult) (Pediatric) (Primary Dx) Social History Tobacco Use Types Packs/Day Years Used Date Smoking Tobacco: Never Assessed Comments Unknown Sex and Gender Information Value Date Recorded Sex Assigned at Not on file 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
--- OUTSIDE RECORDS SUMMARY | 2025-04-21 17:36 | XMS_ITS | Encounter Summary ---
Author Organization [facility] Address [address] [place] [address] Care Team Providers Care Dye [employer] Vat Worker Name Role Phone Roosevelt Penn MD Primary Care Provider Unava ilable Encounter Details Date Type Department Care Team (Latest Contact Info) Description 11/11/2006 Outpatient Historical [facility] Imaging Services-[facility] [place] [address] [place] [phone] Vahid Orosco MD [address] [place], [place] [id number] Other Diseases of Lung, not Elsewhere Classified (Primary Dx) Social History Tobacco Use Types Packs/Day Years Used Date Smoking Tobacco: Never Assessed Comments Unknown Sex and Gender Information Value Date Recorded Sex Assigned at Not on file 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 Gender Identity Not on file Sexual Orientation Not on file documented as of this encounter Plan of Treatment Not on file documented as of this encounter Procedures Procedure Name Priority Date/Time Associated Diagnosis Comments POC CREATININE Routine 11/11/2006 11:28 AM CDT documented in this encounter Results * (ABNORMAL) POC CREATININE (11/11/2006 11:28 AM CDT) CREATININE POC 1.6(H) 0.7 - 1.2 mg/dL INTERFACE SYSTEM 11/11/2006 11:2 8 AM CDT us Vahid Orosco MD POINT OF CARE TESTING Edited INTERFACE SYSTEM Refer to clinic/hospital department documented in this encounter Visit Diagnoses Diagnosis Other diseases of lung, not elsewhere classified- Primary documented in this encounter Care Teams D[employer] Vat Worker Relationship Specialty Start Date End Date Roosevelt Penn MD PCP - General Internal Medicine 06/25/17 documented as of this encounter
--- OUTSIDE RECORDS SUMMARY | 2025-04-21 17:36 | XMS_ITS ---
Author Organization [facility] are Care Team Providers Care Pit Manager Name Role Phone Scot Chaudhry Unavailable Unavailable Renee Florez Unavailable Unavailable Andi Serrato Unavailable Unavailable Mayela Espinosa Unavailable Unavailable Devorah Serrato Unavailable Unavailable Maksim Lopez Unavailable Unavailable Allergies and adverse reactions No Known Allergies Care Team Name Role Address Phone Organization Dates Andi Serrato PCP [address] [place], [address], [place] (Office): : [facility] 03/29/2022 - 04/23/2022 Scot Chaudhry [address] [place], [address], [place] (Office): [facility] 03/29/2022 - 04/23/2022 Renee Florez [address], [address], [facility] (Office): : [facility] 03/29/2022 - 04/23/2022 Mayela Espinosa [address], [address], [facility] (Office): : [facility] 03/29/2022 - 04/23/2022 Devorah Serrato [address] [place], [address], [facility] (Office): : : [facility] 03/29/2022 - 04/23/2022 Maksim Medelw [address] [place], [address], [facility] (Office): : : [phone] [facility] 03/29/2022 - 04/23/2022 Immunizations Immunization Status Vaccine Details Vaccine Code CodeSystem Date Notes Influenza completed Influenza, high-dose, split virus, quadrivalent, injectable, preservative free Given intramuscularly 197 CVX created date: 03/29/2022 administere d date: 05/04/2021 Diphtheria completed tetanus toxoid, reduced diphtheria toxoid, and acellular pertussis vaccine, adsorbed 115 CVX created date: 03/29/2022 administere d date: 06/25/2016 SARS-COV-2 (COVID-19) completed SARS-COV-2 (COVID-19) vaccine, D614, prefusion spike recombinant protein subunit (CoV2 preS dTM), AS03 adjuvant added, preservative free, 5mcg/0.5mL dose Mfg: Pfizer Given intramuscularly Step 2 of Multi-step with next step required 225 CVX created date: 04/01/2022 administere d date: 09/29/2020 SARS-COV-2 (COVID-19) completed SARS-COV-2 (COVID-19) vaccine, D614, prefusion spike recombinant protein subunit (CoV2 preS dTM), AS03 adjuvant added, preservative free, 5mcg/0.5mL dose Mfg: Pfizer Given intramuscularly Step 1 of Multi-step with next step required 225 CVX created date: 04/01/2022 administere d date: 09/01/2020 Prevnar 13 completed Adenovirus, type 4 and type 7, live, oral 143 CVX created date: 03/29/2022 administere d date: 06/09/2015 Prevnar 23 completed Bacillus Calmette-Esmer vaccine 19 CVX created date: 03/29/2022 administere d date: 09/24/2007 SARS - COV2 (Moderna) Booster completed SARS-COV-2 (COVID-19) vaccine, mRNA, spike protein, LNP, preservative free, 100 mcg/0.5mL dose or 50 mcg/0.25mL dose Mfg: M[employer] booster Given intramuscularly 207 CVX created date: 04/01/2022 administere d date: 05/21/2021 Zostavax completed zoster vaccine, live 121 CVX created date: 03/29/2022 administere d date: 05/27/2019 Mental Status Section Date Assessment Total Score Description 04/23/2022 BIMS 14 cognitively int act CAM 0 No delirium ind icated PHQ-9 06 mild depression 04/04/2022 BIMS 15 cognitively int act CAM 0 No delirium ind icated PHQ-9 00 Problems Problem # Description Date of onset Resolved Date Code CodeSystem Concern Status 1 EDEMA, UNSPECIFIED 04/15/[id number] active 2 ACUTE PULMONARY EDEMA 03/29/[address] active 3 ANEMIA IN OTHER CHRONIC DISEASES CLASSIFIED ELSEWHERE 03/29/[address] active 4 CARDIOGENIC SHOCK 03/29/[address] active 5 CHEST PAIN, UNSPECIFIED 03/29/[address] active 6 CHRONIC KIDNEY DISEASE, STAGE 3 UNSPECIFIED 03/29/[address] active 7 CHRONIC TOTAL OCCLUSION OF CORONARY ARTERY 03/29/[id number] active 8 ELEVATION OF LEVELS OF LIVER TRANSAMINASE LEVELS 03/29/[address] active 9 ESSENTIAL (PRIMARY) HYPERTENSION 03/29/[address] active 10 HEART FAILURE, UNSPECIFIED 03/29/[address] active 11 HEREDITARY AND IDIOPATHIC NEUROPATHY, UNSPECIFIED 03/29/[address] active 12 ISCHEMIC CARDIOMYOPATHY 03/29/[address] active 13 MUSCLE WEAKNESS (GENERALIZED) 03/29/[address] active 14 NEED FOR ASSISTANCE WITH PERSONAL CARE 03/29/[id number] active 15 PAROXYSMAL ATRIAL FIBRILLATION 03/29/[address] active 16 RHEUMATOID ARTHRITIS, UNSPECIFIED 03/29/[address] active 17 UNSTEADINESS ON FEET 03/29/[address] active 18 VITAMIN DEFICIENCY, UNSPECIFIED 03/29/[address] active 19 XEROSIS CUTIS 03/29/[address] active 20 ACUTE KIDNEY FAILURE, UNSPECIFIED 03/28/[address] active 21 AGE-RELATED OSTEOPOROSIS WITHOUT CURRENT PATHOLOGICAL FRACTURE 03/28/[address] active 22 ALLERGIC RHINITIS, UNSPECIFIED 03/28/[address] active 23 ANEMIA, UNSPECIFIED 03/28/[address] active 24 CARPAL TUNNEL SYNDROME, BILATERAL UPPER LIMBS 03/28/[address] active 25 CARPAL TUNNEL SYNDROME, RIGHT UPPER LIMB 03/28/[address] active 26 CENTRILOBULAR EMPHYSEMA 03/28/[address] active 27 CONSTIPATION, UNSPECIFIED 03/28/[address] active 28 DRY EYE SYNDROME OF BILATERAL LACRIMAL GLANDS 03/28/[address] active 29 ENCOUNTER FOR IMMUNIZATION 03/28/[address] active 30 ENCOUNTER FOR OTHER PREPROCEDURAL EXAMINATION 03/28/[address] active 31 GASTRO-ESOPHAGEAL REFLUX DISEASE WITHOUT ESOPHAGITIS 03/28/[address] active 32 HYPERLIPIDEMIA, UNSPECIFIED 03/28/[address] active 33 HYPERTENSIVE CHRONIC KIDNEY DISEASE WITH STAGE 1 THROUGH STAGE 4 CHRONIC KIDNEY DISEASE, OR UNSPECIFIED CHRONIC KIDNEY DISEASE 03/28/[id number] active 34 HYPO-OSMOLALITY AND HYPONATREMIA 03/28/[address] active 35 IMMUNODEFICIENCY DUE TO DRUGS 03/28/[address] active 36 NON-ST ELEVATION (NSTEMI) MYOCARDIAL INFARCTION 03/28/[address] active 37 OBSTRUCTIVE SLEEP APNEA (ADULT) (PEDIATRIC) 03/28/[address] active 38 OTHER ABNORMALITY OF RED BLOOD CELLS 03/28/[address] active 39 OTHER IDIOPATHIC SCOLIOSIS, SITE UNSPECIFIED 03/28/[address] active 40 OTHER INTERVERTEBRAL DISC DEGENERATION, LUMBAR REGION 03/28/[address] active 41 OTHER INTERVERTEBRAL DISC DEGENERATION, LUMBOSACRAL REGION 03/28/[address] active 42 OTHER INTERVERTEBRAL DISC DISPLACEMENT, LUMBAR REGION 03/28/[address] active 43 OTHER LOW BACK PAIN 03/28/[address] active 44 OTHER SECONDARY CATARACT, BILATERAL 03/28/[address] active 45 OTHER SPECIFIED ABNORMAL FINDINGS OF BLOOD CHEMISTRY 03/28/[address] active 46 OTHER VASCULAR MYELOPATHIES 03/28/[address] active 47 PAIN, UNSPECIFIED 03/28/[address] active 48 PRESBYOPIA 03/28/[address] active 49 PRESENCE OF INTRAOCULAR LENS 03/28/[address] active 50 PURE HYPERCHOLESTEROLEMI A, UNSPECIFIED 03/28/[address] active 51 RHEUMATOID ARTHRITIS WITH RHEUMATOID FACTOR OF LEFT WRIST WITHOUT ORGAN OR SYSTEMS INVOLVEMENT 03/28/[address] active 52 SPINAL STENOSIS, LUMBAR REGION WITH NEUROGENIC CLAUDICATION 03/28/[address] active 53 SPINAL STENOSIS, LUMBAR REGION WITHOUT NEUROGENIC CLAUDICATION 03/28/[address] active 54 SPONDYLOLISTHESIS, LUMBOSACRAL REGION 03/28/[address] active 55 SPONDYLOLYSIS, LUMBOSACRAL REGION 03/28/[address] active 56 SPONDYLOSIS WITHOUT MYELOPATHY OR RADICULOPATHY, LUMBAR REGION 03/28/[address] active Reason for Referral No Reasons for Referral Entered Social History Social History Observation Description Start Date End Date Code Code System Current Smoking Status Tobacco smoking consumption unknown [id number] SNOMED CT Sex Assigned At Female 1935 30530-2 [facility] Gender Identity Sexual Orientation Vital Signs Code Code System Vitals Name Values and Units Timing Information 86721-2 [facility] Pain Level Value=0.0 04/23/2022 8462-4 [facility] Blood Pressure-Diastolic Value=74 Un its=mmHg 04/23/2022 8480-6 [facility] Blood Pressure-Systolic Dqvlr=445 Un its=mmHg 04/23/2022 8867-4 [facility] Heart rate Value=72.0 Units=/min 9279-1 [facility] Respiratory Rate Value=22.0 Units=/m in 04/22/2022 8310-5 [facility] Body Temperature Value=98.4 Units= F 04/22/2022 74798-3 [facility] O2 % dC Oximetry Value=96.0 Units= % 04/22/2022 13921-2 [facility] Weight Yfonp=137.0 Units=Lbs 8302-2 [facility] Height Value=65.0 Units=Inches 04/02/2022
--- NOTE | 2025-04-21 17:39 | CTR_ITS ---
PROCEDURE INFORMATION: Exam: CT Head Without Contrast Exam date and time: 04/21/2025 7:03 PM Age: 89 years old Clinical indication: Injury or trauma; Fall; Blunt trauma (contusions or hematomas); Without loss of consciousness; Additional info: Fall, head lac, blood thinners TECHNIQUE: Imaging protocol: Computed tomography of the head without contrast. Radiation optimization: All CT scans at this facility use at least one of these dose optimization techniques: automated exposure control; mA and/or kV adjustment per patient size (includes targeted exams where dose is matched to clinical indication); or iterative reconstruction. COMPARISON: CT cervical spin wo con* [id number] 04/21/2025 7:03 PM RADIATION DOSE METRICS: Total DLP (mGy-cm): 1061 FINDINGS: Brain: Chronic small-vessel ischemic change. Cerebral ventricles: Moderate involutional changes of the ventricles and sulci. Paranasal sinuses: Visualized sinuses are unremarkable. No fluid levels. Mastoid air cells: Visualized mastoid air cells are well aerated. Bones: Unremarkable. No acute fracture. Soft tissues: Unremarkable. Other findings: Lacunar foci, commonly chronic. CT/CT head wo con* [id number] IMPRESSION: No definite acute fracture or hemorrhage.
--- NOTE | 2025-04-21 17:39 | CTR_ITS ---
PROCEDURE INFORMATION: Exam: CT Cervical Spine Without Contrast Exam date and time: 04/21/2025 7:03 PM Age: 89 years old Clinical indication: Injury or trauma; Fall; Blunt trauma; Additional info: Fall with head trauma TECHNIQUE: Imaging protocol: Computed tomography of the cervical spine without contrast. Radiation optimization: All CT scans at this facility use at least one of these dose optimization techniques: automated exposure control; mA and/or kV adjustment per patient size (includes targeted exams where dose is matched to clinical indication); or iterative reconstruction. COMPARISON: CR XR shoulder LT min 2V* [id number] 09/10/2024 9:42 AM RADIATION DOSE METRICS: Total DLP (mGy-cm): 217.5 FINDINGS: Bones: [id number] degenerative changes of cervical vertebrae with multilevel endplate spurring and disc space narrowing probably most conspicuous at C4, C5, and C6 . Probable at least moderate narrowing of left C4-C5 neural foramina due to facet and endplate changes. Milder narrowing at C5-C6 also on the left. No definite acute cervical spine fracture. Lungs: Biapical reticulonodular scarring. Wayne micronodularity in the bilateral upper lobes, unknown clinical significance. Vasculature: Aortic and carotid atherosclerosis. Soft tissues: 2.0 cm left thyroid nodule, consider nonurgent ultrasound for further characterization. Other findings: Retropharyngeal course of right carotid. CT/CT cervical spin wo con* [id number] IMPRESSION: 1. No definite acute cervical spine fracture. 2. Aortic and carotid atherosclerosis. 3. Confluent micronodularity in the bilateral upper lobes, unknown clinical significance. 4. 2.0 cm left thyroid nodule, consider nonurgent ultrasound for further characterization. COMMENTS: Consistent with the [place] [employer]'s Incidental Findings Committee white paper (J Am Jostin Radiol 2015): In patients aged 35 years and older with an incidental thyroid nodule equal to or greater than 1.[address], MRI or extrathyroidal US, further evaluation with dedicated thyroid US is recommended for patients with normal life expectancy and without comorbidities. For smaller nodules without suspicious features, no further evaluation or follow up is recommended.
[2025-04-21] MEDS: tetanus-diphtheria tox (adult) 0.5 mL SDV IM (17:47)
[2025-04-21 18:04] VITALS: BP 143/58; PULSE 55; O2SAT 98
--- NOTE | 2025-04-21 19:20 | W.ED.WOUNDLC ---
HPI - Wound/Laceration General: Chief Complaint: Wound/Laceration Stated Complaint: fall - head lac Time Seen by Provider: 04/21/25 17:37 History of Present Illness: 89-year-old female, history of hypertension, asthma, CAD, CKD, CHF, on blood thinners, presenting to the emergency department with a fall and posterior head trauma with laceration and bleeding. Patient tripped over a hose walking in her yard, was otherwise at her usual state of health, hit the back of her head with bleeding, did not lose consciousness, no recurrent vomiting, no pain to the extremities back or neck, no chest pain or shortness of breath no palpitations. No dizziness. Related Data Home Medications ?Medication ?Instructions ?Recorded ?Confirmed levalbuterol HCl 1.25 mg/0.5 mL 2.5 mg inhalation Q6H PRN Wheezing 10/05/19 09/06/24 solution for nebulization amiodarone 200 mg tablet 200 mg PO DAILY 06/03/22 09/06/24 antiarthritic combination no.2 900 mg PO BID 06/03/22 09/06/24 mg tablet (glucosamine-chondroitin) chlorthalidone 25 mg tablet 12.5 mg PO .MWF 06/03/22 09/06/24 cholecalciferol (vitamin D3) 50 50 mcg PO DAILY 06/03/22 09/06/24 mcg (2,000 unit) capsule fluticasone propionate 50 1 spray intranasal BID PRN 06/03/22 09/06/24 mcg/actuation nasal spray,suspension (Flonase Allergy Relief) omeprazole 20 mg capsule,delayed 40 mg PO DAILY 06/03/22 09/06/24 release ondansetron HCl 4 mg tablet 4 mg PO Q8H PRN 06/03/22 09/06/24 rosuvastatin 40 mg tablet 40 mg PO DAILY 06/03/22 09/06/24 sulfasalazine 500 mg tablet 1,500 mg PO BID 06/03/22 09/06/24 ticagrelor 90 mg tablet (Brilinta) 90 mg PO BID 06/03/22 09/06/24 vit C 250 mg-vit E 200 unit-zinc 2 cap PO .HS 06/03/22 09/06/24 ox 12.5 pp-hsolvj-swfygn-zeax capsule (ICaps AREDS2) apixaban 2.5 mg tablet (Eliquis) mg PO 07/12/24 09/06/24 carvedilol 3.125 mg tablet mg PO 07/12/24 09/06/24 dapagliflozin propanediol 10 mg mg PO 07/12/24 09/06/24 tablet (Farxiga) gabapentin 300 mg capsule mg PO 07/12/24 09/06/24 hydrocodone 7.5 mg-acetaminophen tab PO 07/12/24 09/06/24 325 mg tablet baclofen 5 mg tablet mg PO 08/09/24 09/06/24 ropinirole 0.5 mg tablet mg PO 08/09/24 09/06/24 furosemide 20 mg tablet mg PO 09/06/24 09/06/24 prednisone 5 mg tablet mg PO 09/06/24 09/06/24 Previous Rx's ?Medication ?Instructions ?Recorded albuterol sulfate 90 mcg/actuation 2 puff inhalation Q6H PRN Asthma 10/05/19 aerosol inhaler 90 days #18 grams fluticasone 250 mcg-salmeterol 50 1 inh inhalation BID #60 ea 03/07/20 mcg/dose blistr powdr for inhalation (Advair Diskus) Allergies Allergy/AdvReac Type Severity Reaction Status Date / Time No Known Allergies Allergy Verified 09/06/24 09:38 PFSH ED PFSH: Medical History CHF NYHA class III Chronic kidney disease (CKD) CAD (coronary artery disease) Rheumatoid arthritis Essential (primary) hypertension GERD (gastroesophageal reflux disease) Hyperlipidemia SARAHI (obstructive sleep apnea) Surgical History History of lung surgery Hx of cataract surgery History of carpal tunnel surgery History of hysterectomy Family History Mother Diabetes Father CAD (coronary artery disease) Hx of CABG Family/Other CAD (coronary artery disease) Stroke Brother CAD (coronary artery disease) Sister Postsurgical cardiac pacemaker in situ CAD (coronary artery disease) Social History Smoking and tobacco/nicotine status: former use of tobacco/nicotine Quit status (tobacco/nicotine): has quit using Year quit tobacco: 1960 - 0.5 PPD x 2 Years Second hand smoke exposure: Yes Alcohol intake: never Substance/Drug Use: never Lives independently: Yes Household members: none Marital status: Unknown Current occupational status: retired Do you think of yourself as: Straight/Heterosexual Current gender identity: Female Physical Exam Narrative: EXAM NARRATIVE: Gen: A&Ox4, no acute distress, nontoxic appearing HEENT: Normocephalic, there is a posterior occipital scalp hematoma with approximately 1-1/2 cm linear laceration, mild active bleeding, no depressible fracture, no periorbital ecchymosis, no Shelley sign, no tenderness palpation of the cervical spine, ranging neck in all directions without discomfort Neck: Supple, full range of motion, no observable masses Lungs: No Respiratory distress, Lungs clear to auscultation bilaterally no rales, rhonchi, wheezing CV: Regular rate and rhythm, no murmur, no pitting edema to lower extremities bilaterally Abdomen: Soft, nondistended, nontender to palpation MSK: No joint swelling, FROM all 4 extremities, no tenderness to palpation to the bilateral upper or lower extremities with palpation to the feet, ankle, knee, hand and wrist, elbow and shoulder, Skin: No rashes, petechiae, lesions. Normal color per patient. Neuro: Alert and oriented, no slurred speech, sensation and strength grossly intact all 4 extremities Psych: Appropriate for situation. Procedures Laceration Laceration 1: Site: scalp Size (cm): 1.5 Skin layer closed with: other (zeke) Number of sutures: 1 Technique: other Course Vital Signs: Vital signs: Vital Signs Temperature 98.3 F 04/21/25 17:30 Pulse Rate 55 L 04/21/25 18:04 Respiratory Rate 16 04/21/25 17:30 Blood Pressure 143/58 04/21/25 18:04 Pulse Oximetry 98 04/21/25 18:04 Oxygen Delivery Me thod Nasal Cannula 04/21/25 18:04 Oxygen Flow Rate 2 04/21/25 18:04 MDM - Wound/Laceration Medical Decision Making 89-year-old female with cardiac history on blood thinners presenting with a mechanical fall with posterior head trauma scalp laceration, no neurologic deficits on exam, well-appearing, no altered mental status, given age and blood thinner use will rule out intracranial hemorrhage and skull fracture, laceration repair with zeke to the site, discharged with supportive care anticipated. Lab Data Radiology Impressions Cervical Spine CT 04/21/25 17:39 IMPRESSION: 1. No definite acute cervical spine fracture. 2. Aortic and carotid atherosclerosis. 3. Confluent micronodularity in the bilateral upper lobes, unknown clinical significance. 4. 2.0 cm left thyroid nodule, consider nonurgent ultrasound for further characterization. COMMENTS: Consistent with the [place] [employer]'s Incidental Findings Committee white paper (J Am Jostin Radiol 2015): In patients aged 35 years and older with an incidental thyroid nodule equal to or greater than 1.[address], MRI or extrathyroidal US, further evaluation with dedicated thyroid US is recommended for patients with normal life expectancy and without comorbidities. For smaller nodules without suspicious features, no further evaluation or follow up is recommended. Head CT 04/21/25 17:39 IMPRESSION: No definite acute fracture or hemorrhage. All radiology interpretation(s) finalized by discharge ED provider radiology interpretation(s): CT head and cervical spine no acute fracture, no intracranial hemorrhage, incidentally noted bilateral upper lobe nodules in the lung and thyroid nodule, patient reports she had a PET scan done 4 days ago and was told she had no evidence of cancer, recommend PCP follow-up Discharge Plan Discharge Patient Disposition: Home Clinical Impression: Thyroid nodule, Lung nodule, multiple CHI (closed head injury) Qualifiers: Encounter type: initial encounter Qualified Code(s): S09.90XA - Unspecified injury of head, initial encounter Laceration of scalp Qualifiers: Encounter type: initial encounter Qualified Code(s): S01.01XA - Laceration without foreign body of scalp, initial encounter Condition: Stable Prescriptions: No Action levalbuterol HCl 1.25 mg/0.5 mL solution for nebulization 2.5 mg INHALATION Q6H PRN (Reason: Wheezing) albuterol sulfate 90 mcg/actuation HFA aerosol inhaler 2 puff INHALATION Q6H PRN (Reason: Asthma) 90 Days Qty: 18 3RF sulfasalazine 500 mg tablet 1,500 mg PO BID omeprazole 20 mg capsule,delayed release(DR/EC) 40 mg PO DAILY fluticasone propion-salmeterol [Advair Diskus] 250-50 mcg/dose blister with device 1 inh INHALATION BID Qty: 60 3RF glucosamine-chondroitin 900 mg tablet PO BID ICaps AREDS2 250 mg-200 unit -12.5 mg-1 mg capsule 2 cap PO .HS amiodarone 200 mg tablet 200 mg PO DAILY ondansetron HCl 4 mg tablet 4 mg PO Q8H PRN chlorthalidone 25 mg tablet 12.5 mg PO .MWF rosuvastatin 40 mg tablet 40 mg PO DAILY cholecalciferol (vitamin D3) 50 mcg (2,000 unit) capsule 50 mcg PO DAILY Brilinta 90 mg tablet 90 mg PO BID fluticasone propionate [Flonase Allergy Relief] 50 mcg/actuation spray,suspension 1 spray INTRANASAL BID PRN Rx Instructions: administer into each nostril carvedilol 3.125 mg tablet PO hydrocodone-acetaminophen 7.5-325 mg tablet PO gabapentin 300 mg capsule PO Eliquis 2.5 mg tablet PO dapagliflozin propanediol [Farxiga] 10 mg tablet PO prednisone 5 mg tablet PO furosemide 20 mg tablet PO ropinirole 0.5 mg tablet PO baclofen 5 mg tablet PO Discharge Orders: Discharge ED (Routine); Ordered 04/21/25 Ordered By: Venkat De Jesus Referrals: Roosevelt Penn MD [Primary Care Provider, Internal Medicine] Patient Instructions: Patient Portal & James Instructions, Scalp Laceration, Staple Care (ED) Activity Restrictions/Additional Instructions: Return to the emergency department in 10 days for staple removal or sooner if signs of infection develop such as redness, warmth, pus draining from the wound, worsening headache, fever. Print Language: Japanese Coding Level of Care Code ED Drop Hammer Set Up Operator for Fernando Perkins
[2025-04-21] MEDS: lidocaine-epi 1% 20 mL INJ 10 ML INJECTION (20:03)
[2025-04-21 20:23] VITALS: BP 163/75; PULSE 57; RESP 16; O2SAT 99
== END 2025-04-21 20:25 | disposition home or self-care (01) ==
PROVIDERS: Emergency Provider Student in an Organized Health Care Education/Training Program; PCP Internal Medicine
DX: S01.01XA Laceration without foreign body of scalp, initial encounter (principal); S09.8XXA Other specified injuries of head, initial encounter; E04.1 Nontoxic single thyroid nodule; R91.1 Solitary pulmonary nodule; Z79.01 Long term (current) use of anticoagulants; Z87.891 Personal history of nicotine dependence; E78.5 Hyperlipidemia, unspecified; I25.10 Atherosclerotic heart disease of native coronary artery without angina pectoris; I12.9 Hypertensive chronic kidney disease with stage 1 through stage 4 chronic kidney disease, or unspecified chronic kidney disease; N18.9 Chronic kidney disease, unspecified; W01.0XXA Fall on same level from slipping, tripping and stumbling without subsequent striking against object, initial encounter
CPT/HCPCS: 12001; 70450; 72125; 90471; 90714; 99284; J9999

== ENCOUNTER 2025-05-30 12:30 | Oncology outpatient (recurring) (ONCR) | payer MEDICARE, OTHER, SELFPAY ==
[2025-05-04 14:14] LABS: Hematocrit 24.0 % (36-47); Hemoglobin 7.40 g/dL (11.27-16.99); Mean Corpuscular HGB Conc 30.8 g/dL (30-55); Mean Corpuscular Hemoglobin 37.8 pg (27-33); Mean Corpuscular Volume 122.4 fl (85-98); Nucleated Red Blood Cells % 0 %; Platelet Count 105 10^3/cmm (157-399); Red Blood Count 1.96 10^6/uL (3.85-5.65); White Blood Count 4.63 10^3/uL (3.29-11.43)
[2025-05-04 14:31] LABS: Iron 66 ug/dL (37-145); Total Iron Binding Capacity 154 mcg/dl; Unsaturated Iron Binding 88 ug/dL (112-347)
[2025-05-30] VITALS (10 sets, daily range): BP systolic 123–163; BP diastolic 54–72; PULSE 50–62; RESP 17–24; TEMP 36.7–37.1; O2SAT 9–99
[2025-05-30 11:08] LABS: Hematocrit 22.7 % (36-47); Hemoglobin 6.90 g/dL (11.27-16.99); Mean Corpuscular HGB Conc 30.4 g/dL (30-55); Mean Corpuscular Hemoglobin 38.3 pg (27-33); Mean Corpuscular Volume 126.1 fl (85-98); Nucleated Red Blood Cells % 0 %; Platelet Count 98 10^3/cmm (157-399); Red Blood Count 1.80 10^6/uL (3.85-5.65); White Blood Count 5.53 10^3/uL (3.29-11.43)
[2025-05-30 11:23] LABS: Alanine Aminotransferase 51 U/L (0-33); Albumin Level 3.6 g/dL (3.5-5.2); Alkaline Phosphatase 86 U/L (35-105); Anion Gap 14.1 (5-19); Aspartate Amino Transferase 35 U/L (0-32); Blood Urea Nitrogen 28 mg/dL (8-23); Calcium 8.3 mg/dL (8.5-10.5); Carbon Dioxide 22 mmol/L (22-29); Chloride 107 mmol/L (98-107); Globulin 2.1 g/dL (1.3-4.6); Glucose 150 mg/dL (65-115); Osmolality Calculated 296 mOsm/kg (285-295); Potassium 4.1 mmol/L (3.5-5.1); Sodium 139 mmol/L (136-145); Total Protein 5.7 g/dL (6.6-8.7)
[2025-05-30] MEDS: darbepoetin 60 mcg/0.3 mL INJ SUBCUT (14:02)
[2025-05-30] MEDS: FUROsemide 10 mg/mL SDV 2mL 20 MG IVP (15:02)
== END 2025-06-03 23:59 | disposition home or self-care (01) ==
PROVIDERS: Nurse Practitioner Family; PCP Internal Medicine; Visit Provider Internal Medicine Medical Oncology
DX: N18.9 Chronic kidney disease, unspecified; D64.9 Anemia, unspecified; Z79.899 Other long term (current) drug therapy; Z53.9 Procedure and treatment not carried out, unspecified reason
CPT/HCPCS: 36415; 36430; 80053; 83540; 83550; 85025; 86850; 86900; 86920; 96372; 96374; 99214; J0881; J1938; J7050; J9999; P9016

== ENCOUNTER 2025-06-20 12:08 | Oncology outpatient (recurring) (ONCR) | payer MEDICARE, OTHER, SELFPAY ==
[2025-06-20 12:51] LABS: Hematocrit 25.0 % (36-47); Hemoglobin 7.70 g/dL (11.27-16.99); Mean Corpuscular HGB Conc 30.8 g/dL (30-55); Mean Corpuscular Hemoglobin 37.0 pg (27-33); Mean Corpuscular Volume 120.2 fl (85-98); Nucleated Red Blood Cells % 0 %; Platelet Count 94 10^3/cmm (157-399); Red Blood Count 2.08 10^6/uL (3.85-5.65); White Blood Count 6.26 10^3/uL (3.29-11.43)
[2025-06-20 13:00] LABS: Slide Review Slide Review Perform
[2025-06-20 13:01] LABS: LAB Peripheral Smear Sent for Review
[2025-06-20 13:12] LABS: Ferritin 707 ng/mL (15-150); Iron 91 ug/dL (37-145); Total Iron Binding Capacity 172 mcg/dl; Unsaturated Iron Binding 81 ug/dL (112-347)
== END 2025-07-03 23:59 | disposition home or self-care (01) ==
LOC: ONCMED 12:09
PROVIDERS: Registered Nurse; PCP Internal Medicine; Visit Provider Internal Medicine Medical Oncology
DX: D53.9 Nutritional anemia, unspecified (principal); D69.6 Thrombocytopenia, unspecified; N18.9 Chronic kidney disease, unspecified
CPT/HCPCS: 36415; 80503; 82728; 83540; 83550; 85025

== ENCOUNTER 2025-07-22 09:46 | Oncology outpatient (recurring) (ONCR) | payer MEDICARE, OTHER, SELFPAY ==
[2025-07-22 10:42] LABS: Hematocrit 27.8 % (36-47); Hemoglobin 8.80 g/dL (11.27-16.99); Mean Corpuscular HGB Conc 31.7 g/dL (30-55); Mean Corpuscular Hemoglobin 36.2 pg (27-33); Mean Corpuscular Volume 114.4 fl (85-98); Nucleated Red Blood Cells % 0 %; Platelet Count 105 10^3/cmm (157-399); Red Blood Count 2.43 10^6/uL (3.85-5.65); White Blood Count 6.76 10^3/uL (3.29-11.43)
== END 2025-08-03 23:59 | disposition home or self-care (01) ==
LOC: ONCMED 09:46
PROVIDERS: Registered Nurse; PCP Internal Medicine; Visit Provider Internal Medicine Medical Oncology
DX: I50.9 Heart failure, unspecified (principal)
CPT/HCPCS: 36415; 85025